=== PATIENT | male | born 1995 | race Caucasian/White ===

== ENCOUNTER 2021-06-02 23:52 | Inpatient (IN) | payer MEDICAID, SELFPAY ==
--- NOTE | ~2021-06-02 | XR_ITS ---
EXAMINATION: XR ELBOW, RIGHT CLINICAL INFORMATION: Question foreign body COMPARISON: None TECHNIQUE: AP, lateral, and oblique views of the right elbow. FINDINGS: No acute fracture or dislocation of the right elbow is identified. No definite elbow effusion is seen however there is some limitation of imaging on lateral view. There is a large amount of subcutaneous edema present throughout the distal upper arm and proximal radius and ulna. No radiopaque foreign body identified. XR/XR elbow RT min 3V IMPRESSION: Large amount of soft tissue edema without definite acute bony abnormality appreciated. No radiopaque foreign body.
--- NOTE | ~2021-06-02 | MR_ITS ---
EXAMINATION: MRI HUMERUS WITHOUT AND WITH CONTRAST, RIGHT CLINICAL INFORMATION: Severe cellulitis right forearm COMPARISON: Right elbow radiographs 06/03/2021 TECHNIQUE: MRI without and with intravenous administration of 10 mL of Gadavist is performed on the right upper arm. FINDINGS: Marked subcutaneous edema throughout the upper arm. Reticular enhancement near the antecubital fossa compatible with cellulitis. Within the subcutaneous fat of the antecubital fossa is a irregularly-shaped fluid collection measuring approximately 3.0 x 2.9 cm. This is contiguous with a collection extending into the anterolateral aspect of the biceps muscle which measures 2.3 x 1.6 x 5.5 cm. Surrounding edema and enhancement of the muscle. MR/MR humerus RT wo/w con IMPRESSION: Cellulitis with subcutaneous abscess in the region of the antecubital fossa of the right elbow, contiguous with an intramuscular abscess of the biceps as detailed in the comments.
--- NOTE | 2021-06-03 00:01 | ED_ITS ---
HPI - Skin/Abscess/Foreign Bdy General Chief complaint: General Medical Stated complaint: r arm insect bite Time Seen by Provider: 06/03/21 00:00 Source: patient and EMS Mode of arrival: EMS Limitations: no limitations History of Present Illness HPI narrative: Patient is a 25 year old male presenting to the emergency department today with right arm pain. Patient states that he shoots up dope and crack, regularly. Patient states that 2 days ago, his right arm got swollen and red. Patient states that it hurts to even move his right arm. Patient denies any dizziness, lightheadedness, abdominal pain, nausea, vomiting, fever, chills, blurry vision, double vision, loss of vision, chest pain, difficulty breathing, shortness of breath, back pain, night sweats, pain with urination, increased urinary frequency, increased urinary urgency, blood in his urine or stool, syncope or a near syncopal episode, recent trauma or falls, bowel incontinence, bladder incontinence, bowel retention, bladder retention, or any other complaints at this time. MD complaint: abscess/boil Onset (ago): day(s) Tetanus up to date: unsure Location: RUE Severity: moderate Severity scale (1-10): 5 Quality: aching and dull Pain Consistency: constant Relieving factors: none Exacerbating factors: none Context: IVDA Associated symptoms: denies other symptoms Treatments prior to arrival: none Related Data Allergies Allergy/AdvReac Type Severity Reaction Status Date / Time naltrexone [NALTREXONE] Allergy Unknown HIVES Unverified 12/26/19 19:36 Review of Systems Constitutional: Constitutional: Reports no additional constitutional complaints, Denies chills, Denies fever(s) and Denies night sweats Eyes: Eyes: Reports no additional eye complaints, Denies blurry vision, Denies change in vision, Denies diplopia, Denies eye discharge, Denies loss of vision and Denies eye pain ENT: Denies dizziness Cardiovascular: Cardiovascular: Reports no additional cardiovascular complaints, Denies chest pain, Denies lightheadedness, Denies Loss of Consciousness and Denies dyspnea Respiratory: Respiratory: Reports no additional respiratory complaints and Denies dyspnea Gastrointestinal: Gastrointestinal: Reports no additional gastrointestinal complaints, Denies abdominal pain, Denies melena, Denies hematochezia, Denies change in bowel habits and Denies change in stool character Genitourinary: Genitourinary: Reports no additional male genitourinary c omplaints, Denies hematuria, Denies oliguria, Denies difficulty urinating, Denies dysuria, Denies urinary frequency, Denies urinary hesitancy, Denies urinary incontinence and Denies urinary urgency Musculoskeletal: Musculoskeletal: Reports no additional musculoskeletal complaints, Denies numbness and Denies tingling Integumentary/Breasts: Skin/Breast: Reports erythema (to right upper arm) and Reports skin swelling (to right upper arm) Neurologic: Denies dizziness, Denies loss of vision, Denies numbness and Denies tingling Psychiatric: Psychiatric: Reports no additional psychiatric complaints Endocrine: Endocrine: Reports no additional endocrine complaints Hematologic/Lymphatic: Hematologic/Lymphatic: Reports no additional hematologic/lymphatic complaints Allergic/Immunologic: Allergic/Immunologic: Reports no additional allergic/immunologic complaints [facility] Past Medical History Attestation statement: The following information was validated with the patient. Source: old records reviewed Physical Exam Vital Signs: Vital Signs: Last Vital Signs Temp 100.0 F 06/03/21 00:06 Pulse 94 06/03/21 00:06 Resp 18 06/03/21 00:06 BP 124/69 06/03/21 00:06 Pulse Ox 96 06/03/21 00:06 BMI result Body Mass Index 32.1 Const: General: cooperative, no acute distress, alert and awake Nutritional Appearance: well nourished Orientation/consciousness: patient oriented x3 Limitations: no limitations HENMT: Head: Yes normal to inspection and Yes atraumatic Ears: hearing grossly normal bilaterally and external ears normal General nose exam: Normal external nose present, no nasal discharge noted and no epistaxis Face and sinus: Yes normal facial exam, No abrasion and No laceration Mouth: Normal oral and palatal mucosa present, no drooling and no muffled voice Eyes: General: appearance normal, both eyes and all related structures Periorbital: periorbital findings normal Eyelids: Yes eyelids normal Conjunctivae: conjunctivae normal Pupils: Equal, round and reactive pupils present EOM: EOMs intact bilaterally Neck: Neck: Yes normal visual inspection, Yes full ROM and Yes no lymphadenopathy Chest: Chest palpation & inspection: normal inspection of the chest Resp: Effort & Inspection: normal respiratory effort and able to speak in complete sentences Auscultation: clear to auscultation bilaterally Cardio: Rate: regular rate Rhythm: regular rhythm GI: Inspection: Yes normal to inspection Skin: Other: extensive erythema, swelling, and warmth to the right upper arm extending upward and downward from the right antecubital region Neuro: General: patient oriented x3 and moves all extremities Cranial nerves: Yes Equal, round and reactive pupils present Cognition (Neuro): normal cognition Motor exam (neuro): 5/5 motor strength present throughout Sensory Exam: Normal double simultaneous stimulation for sensation Coordination: [id number] test normal Extrem: General: Yes normal to inspection, Yes full ROM and Yes capillary refill normal Psych: Appearance: grossly normal Mental Status: mental status grossly normal Affect: normal affect Attitude: cooperative Thought process: Normal thought process present Thought content: Normal thought content present Insight: Good insight present (Psych) MDM - Skin/Abscess/Foreign Bdy MDM Narrative Medical decision making narrative: Patient is a 25 year old male presenting to the emergency department today with right arm cellulitis. Patient's physical exam showed diffuse erythema, warmth, and swelling to the right upper arm. Additionally, patient was febrile at 100 F. Patient was worked up for sepsis and given all appropriate antibiotics and fluids while in the department. Patient's blood work was still pending. Patient's EKG was unremarkable. I explained my physical exam findings as well as all test results to the patient. I answered all questions asked by the patient. Patient received IV Zosyn, Vancomycin, and fluids. I spoke to Dr. Mahmood who agreed to hospital admission. Patient verbalized agreement and understanding with this treatment plan and admission. Differential Diagnosis Differential diagnosis: Likely abscess of skin or subcutaneous tissue and cellulitis Medical Records Attestation: I reviewed the patient's medical records. Lab Data Attestation: I reviewed the patient's lab results. Result diagrams: 06/03/21 00:38 06/03/21 00:38 Labs: Lab Results 06/03/21 06/03/21 Range/Units 00:29 00:38 WBC 10.1 (4.8-10.8) X10*3/uL RBC 4.41 L (4.60-5.80) X10*6/uL Hgb 12.7 L (14.0-18.0) g/dl Hct 37.5 L (42.0-52.0) % MCV 85.0 (80.0-98.0) fL MCH 28.8 (27.0-33.0) pg MCHC 33.9 (31.0-36.0) g/dl RDW 11.9 (11.0-16.0) % Plt Count 209 (160-400) X10*3/uL MPV 9.4 (9.4-12.4) fL Immature Gran % (Auto) 0.2 (0.0-0.4) % Neut % (Auto) 65.4 (45-73) % Lymph % (Auto) 25.7 (20-40) % [place] % (Auto) 8.2 (2-11) % Eos % (Auto) 0.3 (0-4) % Baso % (Auto) 0.2 (0-2) % Lymph # (Auto) 2.6 (1.2-4.9) X10*3/uL [place] # (Auto) 0.8 (0.1-1.2) X10*3/uL Eos # (Auto) 0.0 (0.0-0.4) X10*3/uL Baso # (Auto) 0.0 (0.0-0.2) X10*3/uL Abs Immat Gran (auto) 0.02 (0.00-0.03) X10*3/uL Absolute Neuts (auto) 6.6 (2.0-8.3) x10*3/uL Absolute Nucleated RBC 0.000 (0.0-0.012) X10*3/uL Nucleated RBC % (auto) 0.0 (0.0-0.2) /100WBC COVID-19 (DEREK) Negative (Negative) COVID-19 Clin Com See Note ECG Data Attestation: I personally reviewed and interpreted this ECG as follows: ECG interpretation date: 06/03/21 ECG interpretation time: 00:16 Prior ECG tracings: available for review Interpretation: Vent. Rate: 094 BPM ? ? Atrial Rate: 094 BPM P-R Int: 166 ms? QRS Dur: 110 ms QT Int: 338 ms ? ? ? P-R-T Axes: 043 005 038 degrees QTc Int: 422 ms ? Normal sinus rhythm Possible Left atrial enlargement Incomplete right bundle branch block Borderline ECG When compared with ECG of 06-APR-2018 13:15, QT has shortened Discharge Plan Discharge Clinical Impression: Cellulitis Patient Disposition: Admitted As Inpatient Print Language: Mongolian
[2021-06-03 00:06] VITALS: BP 124/69; PULSE 94; RESP 18; TEMP 37.8; O2SAT 96; BMI 32.1
--- NOTE | 2021-06-03 00:06 | ECG_ITS ---
Test Reason : cellulitis Blood Pressure : / mmHG Vent. Rate : 094 BPM Atrial Rate : 094 BPM P-R Int : 166 ms QRS Dur : 110 ms QT Int : 338 ms P-R-T Axes : 043 005 038 degrees QTc Int : 422 ms Normal sinus rhythm Possible Left atrial enlargement Incomplete right bundle branch block Borderline ECG When compared with ECG of 06-APR-2018 13:15, QT has shortened Referred By: Verito Mathews Electronically Signed By:SWETA CARRERA
[2021-06-03 00:48] LABS: MANUAL DIFF FLAG NO
[2021-06-03] MEDS: Piperacillin Sodium/Tazobactam 4.5 GM in 0.9 % Sodium Chloride 100 ML IV (00:48)
[2021-06-03] MEDS: vancomycin HCL 1,000 MG in 0.9 % Sodium Chloride 250 ML 270 MG IV (00:48)
[2021-06-03 00:49] LABS: Basophils Percent Auto 0.2 % (0-2); Eosinophils Percent Auto 0.3 % (0-4); Hematocrit 37.5 % (42.0-52.0); Hemoglobin 12.7 g/dl (14.0-18.0); Imm Gran Abs Auto 0.02 X10*3/uL (0.00-0.03); Imm Gran Pct Auto 0.2 % (0.0-0.4); Lymphocytes Absolute Auto 2.6 X10*3/uL (1.2-4.9); Lymphocytes Percent Auto 25.7 % (20-40); Mean Corpuscular HGB Conc 33.9 g/dl (31.0-36.0); Mean Corpuscular Hemoglobin 28.8 pg (27.0-33.0); Mean Platelet Volume 9.4 fL (9.4-12.4); Monocytes Absolute Auto 0.8 X10*3/uL (0.1-1.2); Monocytes Percent Auto 8.2 % (2-11); Neutrophils Absolute Auto 6.6 x10*3/uL (2.0-8.3); Neutrophils Percent Auto 65.4 % (45-73); Platelet Count 209 X10*3/uL (160-400); Red Blood Count 4.41 X10*6/uL (4.60-5.80); Red Cell Distribution Width 11.9 % (11.0-16.0); White Blood Count 10.1 X10*3/uL (4.8-10.8)
[2021-06-03] MEDS: Diphth,Pertus(ACell),Tet Adult 0.5 ML SYRINGE IM (00:49)
[2021-06-03 00:51] LABS: COVID-19 Test Negative (Negative)
[2021-06-03 01:02] LABS: Lactic Acid 1.1 mmol/L (0.5-2.0)
[2021-06-03 05:10] VITALS: BP 100/62; PULSE 86; RESP 16; TEMP 37.2; O2SAT 100
[2021-06-03 05:44] LABS: Alanine Aminotransferase 18 U/L (0-40); Albumin Level 3.7 g/dL (3.5-5.0); Alkaline Phosphatase 99 U/L (39-117); Anion Gap 15 (12-20); Aspartate Amino Transferase 14 U/L (5-37); Bilirubin Total 0.8 mg/dL (0.0-1.0); Blood Urea Nitrogen 8 mg/dL (9-16); Carbon Dioxide 26 mmol/L (22-29); Chloride 98 mmol/L (96-108); Creatinine Clr Calc Pharmacy 156.1; Estimated Glomerular Filt Rate > 60; Glucose Random 104 mg/dL (60-115); Potassium 3.4 mmol/L (3.3-5.1); Sodium 136 mmol/L (135-145); Total Protein 6.7 g/dL (6.5-8.0); Troponin-I High Sensitivity < 3.5 ng/L (<3.5-35.0)
[2021-06-03] MEDS: HYDROmorphone HCl 1 MG/ML SYRINGE 0.5 MG IVPUSH ×3 (06:01→23:20)
[2021-06-03] MEDS: Piperacillin Sodium/Tazobactam 3.375 GM in 0.9 % Sodium Chloride 50 ML IV ×3 (06:03→20:48)
[2021-06-03] MEDS: Enoxaparin Sodium 40 MG/0.4 ML SYRINGE SUBCUT (06:05)
--- NOTE | 2021-06-03 06:51 | PM.IMHP ---
History of Present Illness Date of Service: 06/03/21 Chief Complaint: arm pain, swelling 25-year-old male with past medical history of polysubstance abuse that includes heroin, cocaine, as well as alcohol presents to the hospital with complaints of right upper extremity swelling, tenderness, and redness. Patient reports that his symptoms started 2 days prior, have worsened, he has 10/10 pain, radiating down his right arm, he has no numbness or tingling in his fingers, he reports progressively increasing swelling. He also has now noticed swelling and redness in his right hand. Patient denies having any chest pain, no shortness of breath nausea or vomiting, no diarrhea constipation, no urinary symptoms and no lower extremity edema. Patient reports history of injecting heroin as well as cocaine in his hand and in the right arm. He reports that he also picks at his scabs on the right arm constantly. He drinks alcohol daily and neb to a pint and has history of alcohol withdrawal seizures. On arrival to the ED patient hemodynamically stable no significant abnormal vitals Labs reviewed are unremarkable with no WBC elevation Patient will be admitted for further management Review of Systems Review of Systems: Yes all other systems are reviewed and are negative [facility] Medical History (Updated 06/03/21 @ 06:56 by Alexis Mahmood MD) Alcohol abuse Polysubstance abuse Tobacco use disorder Pertinent family history: does not know his family and has no connection to them Surgical History (Updated 06/03/21 @ 06:54 by Alexis Mahmood MD) No pertinent past surgical history Social History (Updated 06/03/21 @ 06:55 by Alexis Mahmood MD) Alcohol intake: current Patient Tobacco Use Status: Current everyday Tobacco user Cigarette Packs Per Day: 0.5 Use of substances other than those prescribed or required for medical reasons: Yes Substance Use Type: Crack/Cocaine, Heroin and IV Drugs Advance Directives: No Meds Allergies Allergy/AdvReac Type Severity Reaction Status Date / Time naltrexone [NALTREXONE] Allergy Unknown HIVES Verified 06/03/21 06:01 Active Medications: Current Medications Acetaminophen (Acetaminophen 325 Mg Tablet) 650 mg PO Q6H PRN PRN Reason: Pain, Mild (Pain Scale 1-3) Docusate Sodium (Docusate Sodium 100 Mg Capsule) 100 mg PO DAILY PRN PRN Reason: Constipation Enoxaparin Sodium (Enoxaparin Sodium 40 Mg/0.4 Ml Syringe) 40 mg SUBCUT Q24H MARLON Last Admin: 06/03/21 06:05 Dose: 40 mg Documented by: Hydromorphone HCl (Hydromorphone Hcl 1 Mg/Ml Syringe) 0.5 mg IVPUSH Q4H PRN; Protocol PRN Reason: Pain, Severe (Pain Scale 7-10) Last Admin: 06/03/21 06:01 Dose: 0.5 mg Documented by: Vancomycin HCl 1,500 mg/ (Sodium Chloride) 500 mls @ 333.333 mls/hr IV Q12H [facility] Last Admin: 06/03/21 05:55 Dose: Not Given Documented by: Piperacillin Sod/Tazobactam (Sod 3.375 gm/ Sodium Chloride) 50 mls @ 100 mls/hr IV Q6H [facility] Last Infusion: 06/03/21 06:34 Dose: Infused Documented by: Medication (No Benzodiazepines) 1 each MISCELLANE DAILY [facility] Ondansetron HCl (Ondansetron Hcl 4 Mg/2 Ml Vial) 4 mg IVPUSH Q8H PRN PRN Reason: Nausea and Vomiting Pharmacy Consult (Consult Rx Perform Med Rec) 1 each MISCELLANE ONCE STA Stop: 06/03/21 05:44 Pharmacy Consult (Consult Rx Vancomycin Dosing) 1 each MISCELLANE DAILY PRN PRN Reason: Consult order Phenobarbital (Phenobarbital 30 Mg Tablet) 60 mg PO BID [facility]; Protocol Stop: 06/05/21 09:01 Phenobarbital (Phenobarbital 30 Mg Tablet) 30 mg PO BID [facility]; Protocol Stop: 06/07/21 09:01 Phenobarbital (Phenobarbital 30 Mg Tablet) 30 mg PO DAILY [facility]; Protocol Stop: 06/09/21 09:01 Phenobarbital Sodium (Phenobarbital Sodium 130 Mg/Ml Vial) 328 mg IM ONCE ONE; Protocol Stop: 06/03/21 07:01 Phenobarbital Sodium (Phenobarbital Sodium 130 Mg/Ml Vial) 246 mg IM Q3H [facility]; Protocol Stop: 06/03/21 13:01 Sodium Chloride (0.9 % Sodium Chloride Flush 3 Ml Syringe) 3 ml IVFLUSH QSHIFT [facility] Physical Exam Vital Signs and Narrative: Vital Signs: Last Vital Signs Temp 99 F 06/03/21 05:10 Pulse 86 06/03/21 05:10 Resp 16 02/24/22 05:10 BP 100/62 06/03/21 05:10 Pulse Ox 100 06/03/21 05:10 BMI result Body Mass Index 32.1 Const: General: cooperative and no acute distress Orientation/consciousness: patient oriented x3 Eyes: General: appearance normal, both eyes and all related structures Pupils: Equal, round and reactive pupils present Resp: Effort & Inspection: normal respiratory effort Auscultation: clear to auscultation bilaterally Cardio: Rate: regular rate Rhythm: regular rhythm GI: Palpation (GI): Soft to palpation Auscultation: normal bowel sounds Skin: Other: erythema, edema, severe tenderness and warmth throughtout right upper extremity starting at the hand - few small ulcers Neuro: General: patient oriented x3 Cranial nerves: Yes Equal, round and reactive pupils present Cognition (Neuro): normal cognition Extrem: Other: right upper extremity edema General: Yes no pedal edema Results Labs CBC and Chem 7: 06/03/21 00:38 06/03/21 00:38 Labs: Laboratory Results - last 24 hr 06/03/21 06/03/21 06/03/21 00:29 00:38 00:38 MCV MCH MCHC RDW Plt Count MPV Immature Gran % (Auto) Neut % (Auto) Lymph % (Auto) [place] % (Auto) Eos % (Auto) Baso % (Auto) Lymph # (Auto) [place] # (Auto) Eos # (Auto) Baso # (Auto) Abs Immat Gran (auto) Absolute Neuts (auto) Absolute Nucleated RBC Nucleated RBC % (auto) Anion Gap 15 Estim Creat Clear Calc 156.1 Estimated GFR > 60 Random Glucose 104 Lactic Acid 1.1 Calcium 9.0 Total Bilirubin 0.8 AST 14 ALT 18 Alkaline Phosphatase 99 Total Protein 6.7 Albumin 3.7 COVID-19 (DEREK) Negative COVID-19 Clin Com See Note 06/03/21 00:38 MCV 85.0 MCH 28.8 MCHC 33.9 RDW 11.9 Plt Count 209 MPV 9.4 Immature Gran % (Auto) 0.2 Neut % (Auto) 65.4 Lymph % (Auto) 25.7 [place] % (Auto) 8.2 Eos % (Auto) 0.3 Baso % (Auto) 0.2 Lymph # (Auto) 2.6 [place] # (Auto) 0.8 Eos # (Auto) 0.0 Baso # (Auto) 0.0 Abs Immat Gran (auto) 0.02 Absolute Neuts (auto) 6.6 Absolute Nucleated RBC 0.000 Nucleated RBC % (auto) 0.0 Anion Gap Estim Creat Clear Calc Estimated GFR Random Glucose Lactic Acid Calcium Total Bilirubin AST ALT Alkaline Phosphatase Total Protein Albumin COVID-19 (DEREK) COVID-19 Clin Com Assessment and Plan (1) Cellulitis: Status: Acute (2) Polysubstance abuse: Status: Acute (3) Tobacco use disorder: Status: Acute (4) Alcohol abuse: Status: Acute Plan 25-year-old male with history polysubstance abuse including cocaine, heroin and alcohol presents to the hospital with complaints of right upper extremity cellulitis # cellulitis of right upper extremity - history of IV drug abuse - IV antibiotic - follow cultures # polysubstance abuse - continue home methadone - consult care team # alcohol abuse - daily drinker, history of alcohol withdrawal seizure - will start him on phenobarb protocol # tobacco use disorder - not interested in nicotine replacement therapy DVT prophylaxis: Lovenox Quality Stroke Does the patient have a stroke diagnosis?: No VTE Prior VTE?: No VTE Risk Level:: Medical - moderate - high VTE Device Contraindication: Treatment Not Indicated VTE Drug Contraindication: N/A - Med Ordered
--- NOTE | 2021-06-03 07:14 | PHA.PROG ---
Admission Date/Time: June 03, 2021 05:46 Indication: Cellulitis, IVDU Weight in k.398 kg Adjusted body weight in K.679kg [place] body weight in K.2 kg Obesity Dosing Indication % IBW: 138% Serum Creatinine - Last 168 Hours 06/03/21 00:38 Creatinine 0.96 Estimated CrCl and GFR - Last 168 Hours 06/03/21 00:38 Estim Creat Clear Calc 156.1 Estimated GFR > 60 Vancomycin Loading Dose: N/A Current Vancomycin Dosing Regimen: 1250 mg Q12H Date and Time for next Vancomycin Level to be drawn: 06/04 @ 0700 Pharmacist Comments on Vancomycin Plan: First dose vancomycin 1000 mg (<10mg/mg) given in the ED 06/03 @ 0044. Not a full loading dose was given, therefore we will start mainteance dose in 8 hours. Maintenance 1250 mg Q12H scheduled to start 06/03 @ 0900. Expected AUC 461 with a trough of 14.6. Trough to be drawn prior to 4th dose Pharmacy to monitor renal function daily Jeannie Monson PharmD Vancomycin dosing will take advantage of [employer] as a clinical decision support tool that uses Bayesian modeling to calculate individual patient's pharmacokinetic parameters and forecast the patient's drug concentration time course with the target goal AUC 24 range of 400 - 600 mg/L/hr.
[2021-06-03] MEDS: PHENobarbitaL sodium 130 MG/ML VIAL 328 MG IM (07:27)
[2021-06-03 08:44] LABS: MANUAL DIFF FLAG NO
[2021-06-03 08:46] LABS: Basophils Percent Auto 0.3 % (0-2); Eosinophils Absolute Auto 0.1 X10*3/uL (0.0-0.4); Eosinophils Percent Auto 0.6 % (0-4); Hematocrit 37.4 % (42.0-52.0); Hemoglobin 12.6 g/dl (14.0-18.0); Imm Gran Abs Auto 0.05 X10*3/uL (0.00-0.03); Imm Gran Pct Auto 0.5 % (0.0-0.4); Lymphocytes Percent Auto 21.4 % (20-40); Mean Corpuscular HGB Conc 33.7 g/dl (31.0-36.0); Mean Corpuscular Hemoglobin 28.7 pg (27.0-33.0); Mean Corpuscular Volume 85.2 fL (80.0-98.0); Monocytes Absolute Auto 0.7 X10*3/uL (0.1-1.2); Monocytes Percent Auto 7.8 % (2-11); Neutrophils Absolute Auto 6.5 x10*3/uL (2.0-8.3); Neutrophils Percent Auto 69.4 % (45-73); Platelet Count 162 X10*3/uL (160-400); Red Blood Count 4.39 X10*6/uL (4.60-5.80); White Blood Count 9.3 X10*3/uL (4.8-10.8)
[2021-06-03 08:57] VITALS: BP 104/64; PULSE 88; RESP 16; TEMP 37.5; O2SAT 95
[2021-06-03 09:02] LABS: Anion Gap 12 (12-20); Blood Urea Nitrogen 7 mg/dL (9-16); Calcium 8.7 mg/dL (8.4-10.2); Carbon Dioxide 24 mmol/L (22-29); Chloride 101 mmol/L (96-108); Creatinine Clr Calc Pharmacy 174.3; Estimated Glomerular Filt Rate > 60; Glucose Random 136 mg/dL (60-115); Potassium 3.3 mmol/L (3.3-5.1); Sodium 134 mmol/L (135-145)
--- NOTE | 2021-06-03 09:05 | PHA.MEDREC ---
Pharmacy Consult ? Medication Reconciliation Pharmacy has completed the medication reconciliation. Patient reports no prescripiton or OTC medications Bri PickettD
[2021-06-03 09:06] LABS: C Reactive Protein 18.62 mg/dL (< or = 0.50)
[2021-06-03] MEDS: vancomycin HCL 1,250 MG in 0.9 % Sodium Chloride 250 ML 166.67 MG IV ×2 (09:07→20:50)
[2021-06-03] MEDS: 0.9 % Sodium Chloride Flush 3 ML SYRINGE IVFLUSH (09:07)
[2021-06-03 09:35] LABS: Erythrocyte Sedimentation Rate 26 MM/HR (0-15)
--- NOTE | 2021-06-03 10:23 | MHC.CM.PN ---
PT REPORTS HE IS HOMELESS BUT HAS BEEN STAYING WITH A FRIEND PT REPORTS HE HAS NO COMMUNITY SERVICES AND USES NO DME PT ADMITS HE HAS NOT SEEN A PCP IN SOME TIME AND HAS NOT TAKEN CARE OF HIS HEALTH SECONDARY TO PSA PT REPORTS HE WAS CONNECTED TO A [facility] CL[facility] IN [place] BUT WAS DISCONNECTED WHEN HE CAME BACK TO THIS AREA WITH HIS GIRLFRIEND. PT IS INTERESTED IN GETTING CONNECTED WITH A NEW [facility] CLINIC PT DOES NOT HAVE A HCP AND REPORTS HE DOES NOT HAVE ANYONE HE COULD NAME PT REPORTS HE CAN RETURN TO HIS FRIENDS HOME AT [place] CURRENT [place] PLAN IS TO FRIENDS HOME, POSSIBLY WITH NEW [facility] SERVICES PT WILL NEED ASSISTANCE WITH TRANSPORTATION AND WILL BE GOING TO [address] [place] [address] IN [place]
[2021-06-03] MEDS: PHENobarbitaL sodium 130 MG/ML VIAL 246 MG IM ×2 (10:39→13:51)
[2021-06-03 12:11] VITALS: BP 122/77; PULSE 82; RESP 18; TEMP 36.7; O2SAT 99
[2021-06-03] MEDS: ondansetron HCL 4 MG/2 ML VIAL IVPUSH (12:21)
--- NOTE | 2021-06-03 12:27 | PC.NURSE ---
Medicated with zofran and dialudid.
[2021-06-03] MEDS: Lactated Ringers 1,000 ML 100 ML IVCONT (12:50)
--- NOTE | 2021-06-03 14:01 | PC.NURSE ---
surgery consult at bedside. per surgeon, given that pt ate breakfast at approx 9am no thoughts to do surgery today - will await MRI results and make decision in the AM. per surgeon, pt ok to eat at this time and change to NPO at midnight.
[2021-06-03 16:38] VITALS: BP 119/77; PULSE 76; RESP 16; TEMP 37.2; O2SAT 98
--- NOTE | 2021-06-03 16:54 | HO.PM.IMPN ---
Subjective Subjective Date of Service: 06/03/21 Interval History: Right upper arm and arm cellulitis as well as left out for arm cellulitis. Review of Systems Patient still has lot of shoulder and forearm pain specially on the right side and range of motion is also somewhat restricted. Denies any fever or chills or nausea vomiting or abdominal pain or weakness or numbness. Physical Exam Vital Signs: Vital Signs: Last Vital Signs Temp 99.0 F 06/03/21 16:38 Pulse 76 06/03/21 16:38 Resp 16 06/03/21 16:38 BP 119/77 06/03/21 16:38 Pulse Ox 98 06/03/21 16:38 BMI result Body Mass Index 32.1 Physical exam: Unchanged from H&P. Objective Data Active Medications Acetaminophen (Acetaminophen 325 Mg Tablet) 650 mg PO Q6H PRN PRN Reason: Pain, Mild (Pain Scale 1-3) Docusate Sodium (Docusate Sodium 100 Mg Capsule) 100 mg PO DAILY PRN PRN Reason: Constipation Enoxaparin Sodium (Enoxaparin Sodium 40 Mg/0.4 Ml Syringe) 40 mg SUBCUT Q24H [facility] Last Admin: 06/03/21 06:05 Dose: 40 mg Documented by: RGEAN Hydromorphone HCl (Hydromorphone Hcl 1 Mg/Ml Syringe) 0.5 mg IVPUSH Q4H PRN; Protocol PRN Reason: Pain, Severe (Pain Scale 7-10) Last Admin: 06/03/21 12:21 Dose: 0.5 mg Documented by: ORTIZ Piperacillin Sod/Tazobactam (Sod 3.375 gm/ Sodium Chloride) 50 mls @ 100 mls/hr IV Q6H [facility] Last Infusion: 06/03/21 12:49 Dose: 0 mls/hr Documented by: LILI Vancomycin HCl 1,250 mg/ (Sodium Chloride) 250 mls @ 166.667 mls/hr IV Q12H [facility] Last Infusion: 06/03/21 11:00 Dose: 0 mls/hr Documented by: LILI Lactated Ringer's (Lr) 1,000 mls @ 100 mls/hr IVCONT .Q10H [facility] Last Admin: 06/03/21 12:50 Dose: 100 mls/hr Documented by: HO.CROSBS Medication (No Benzodiazepines) 1 each MISCELLANE DAILY [facility] Ondansetron HCl (Ondansetron Hcl 4 Mg/2 Ml Vial) 4 mg IVPUSH Q8H PRN PRN Reason: Nausea and Vomiting Last Admin: 06/03/21 12:21 Dose: 4 mg Documented by: ORTIZ Pharmacy Consult (Consult Rx Vancomycin Dosing) 1 each MISCELLANE DAILY PRN PRN Reason: Consult order Phenobarbital (Phenobarbital 30 Mg Tablet) 60 mg PO BID [facility]; Protocol Stop: 06/05/21 09:01 Phenobarbital (Phenobarbital 30 Mg Tablet) 30 mg PO BID [facility]; Protocol Stop: 06/07/21 09:01 Phenobarbital (Phenobarbital 30 Mg Tablet) 30 mg PO DAILY [facility]; Protocol Stop: 06/09/21 09:01 Sodium Chloride (0.9 % Sodium Chloride Flush 3 Ml Syringe) 3 ml IVFLUSH QSHIFT [facility] Last Admin: 06/03/21 16:34 Dose: Not Given Documented by: URMILA Non-Admin Reason: IV Running Labs CBC & Chem 7: 06/03/21 08:40 06/03/21 08:40 Labs: Laboratory Results - last 24 hr 06/03/21 06/03/21 06/03/21 00:29 00:38 00:38 MCV MCH MCHC RDW Plt Count MPV Immature Gran % (Auto) Neut % (Auto) Lymph % (Auto) [place] % (Auto) Eos % (Auto) Baso % (Auto) Lymph # (Auto) [place] # (Auto) Eos # (Auto) Baso # (Auto) Abs Immat Gran (auto) Absolute Neuts (auto) Absolute Nucleated RBC Nucleated RBC % (auto) ESR Anion Gap 15 Estim Creat Clear Calc 156.1 Estimated GFR > 60 Random Glucose 104 Lactic Acid 1.1 Calcium 9.0 Total Bilirubin 0.8 AST 14 ALT 18 Alkaline Phosphatase 99 C-Reactive Protein 18.62 H Total Protein 6.7 Albumin 3.7 COVID-19 (DEREK) Negative COVID-19 Clin Com See Note 06/03/21 06/03/21 06/03/21 00:38 00:38 08:40 MCV 85.0 85.2 MCH 28.8 28.7 MCHC 33.9 33.7 RDW 11.9 12.0 Plt Count 209 162 MPV 9.4 10.0 Immature Gran % (Auto) 0.2 0.5 H Neut % (Auto) 65.4 69.4 Lymph % (Auto) 25.7 21.4 [place] % (Auto) 8.2 7.8 Eos % (Auto) 0.3 0.6 Baso % (Auto) 0.2 0.3 Lymph # (Auto) 2.6 2.0 [place] # (Auto) 0.8 0.7 Eos # (Auto) 0.0 0.1 Baso # (Auto) 0.0 0.0 Abs Immat Gran (auto) 0.02 0.05 H Absolute Neuts (auto) 6.6 6.5 Absolute Nucleated RBC 0.000 0.000 Nucleated RBC % (auto) 0.0 0.0 ESR 26 H Anion Gap Estim Creat Clear Calc Estimated GFR Random Glucose Lactic Acid Calcium Total Bilirubin AST ALT Alkaline Phosphatase C-Reactive Protein Total Protein Albumin COVID-19 (DEREK) COVID-19 Clin Com 06/03/21 08:40 MCV MCH MCHC RDW Plt Count MPV Immature Gran % (Auto) Neut % (Auto) Lymph % (Auto) [place] % (Auto) Eos % (Auto) Baso % (Auto) Lymph # (Auto) [place] # (Auto) Eos # (Auto) Baso # (Auto) Abs Immat Gran (auto) Absolute Neuts (auto) Absolute Nucleated RBC Nucleated RBC % (auto) ESR Anion Gap 12 Estim Creat Clear Calc 174.3 Estimated GFR > 60 Random Glucose 136 H Lactic Acid Calcium 8.7 Total Bilirubin AST ALT Alkaline Phosphatase C-Reactive Protein Total Protein Albumin COVID-19 (DEREK) COVID-19 Clin Com Assessment and Plan (1) Cellulitis: Status: Acute Plan 25-year-old male with history polysubstance abuse including cocaine, heroin and alcohol presents to the hospital with complaints of right upper extremity cellulitis 1.cellulitis of right upper extremity -? history of IV drug abuse -? IV antibiotic, vanco trough -? follow? cultures Discussed with surgery: Added upper arm MRI, npo past midight- if does not improve, may need surgery intervention . 2.? polysubstance abuse -? continue home methadone -? consult care team 3. ? alcohol abuse -? daily drinker, history of alcohol withdrawal seizure continue on phenobarb protocol 4. tobacco use disorder -? not interested in nicotine replacement therapy ?DVT prophylaxis: [place] Quality Stroke Does the patient have a stroke diagnosis?: No VTE Prior VTE?: No VTE Risk Level:: Medical - moderate - high VTE Device Contraindication: Treatment Not Indicated VTE Drug Contraindication: N/A - Med Ordered
--- NOTE | 2021-06-03 19:24 | P.CONOP_ITS ---
History of Present Illness HPI Consult date: 06/03/21 Chief complaint: Cellulitis Narrative: This is a 25 yo male who presented to the ED with worsening pain , swelling and redness in the right arm. He states he injected heroin into the right hand 2 days ago. He denies injecting into the atecubital fossa or bicep region. Denies this happening before. Upon presentation to the ED, he was admitted to the medical service for IV abx and further evaluation. Orthopedics was consulted for concerns of arm abscess vs cellulitis. Review of Systems Review of Systems: As per [facility] Past Medical History Medical History (Updated 06/03/21 @ 06:56 by Alexis Mahmood MD) Alcohol abuse Polysubstance abuse Tobacco use disorder Surgical History Surgical History (Updated 06/03/21 @ 06:54 by Alexis Mahmood MD) No pertinent past surgical history Social History Social History (Updated 06/03/21 @ 06:55 by Alexis Mahmood MD) Alcohol intake: current Patient Tobacco Use Status: Current everyday Tobacco user Cigarette Packs Per Day: 0.5 Use of substances other than those prescribed or required for medical reasons: Yes Substance Use Type: Crack/Cocaine, Heroin and IV Drugs Advance Directives: No service: No Current occupational status: unemployed Meds Allergies Allergy/AdvReac Type Severity Reaction Status Date / Time naltrexone [NALTREXONE] Allergy Unknown HIVES Verified 06/03/21 06:01 Active Medications: Current Medications Acetaminophen (Acetaminophen 325 Mg Tablet) 650 mg PO Q6H PRN PRN Reason: Pain, Mild (Pain Scale 1-3) Docusate Sodium (Docusate Sodium 100 Mg Capsule) 100 mg PO DAILY PRN PRN Reason: Constipation Enoxaparin Sodium (Enoxaparin Sodium 40 Mg/0.4 Ml Syringe) 40 mg SUBCUT Q24H [facility] Last Admin: 06/03/21 06:05 Dose: 40 mg Documented by: Hydromorphone HCl (Hydromorphone Hcl 1 Mg/Ml Syringe) 0.5 mg IVPUSH Q4H PRN; Protocol PRN Reason: Pain, Severe (Pain Scale 7-10) Last Admin: 06/03/21 12:21 Dose: 0.5 mg Documented by: Piperacillin Sod/Tazobactam (Sod 3.375 gm/ Sodium Chloride) 50 mls @ 100 mls/hr IV Q6H [facility] Last Infusion: 06/03/21 12:49 Dose: Infused Documented by: Vancomycin HCl 1,250 mg/ (Sodium Chloride) 250 mls @ 166.667 mls/hr IV Q12H [facility] Last Infusion: 06/03/21 11:00 Dose: Infused Documented by: Lactated Ringer's (Lr) 1,000 mls @ 100 mls/hr IVCONT .Q10H [facility] Last Admin: 06/03/21 12:50 Dose: 100 mls/hr Documented by: Medication (No Benzodiazepines) 1 each MISCELLANE DAILY [facility] Ondansetron HCl (Ondansetron Hcl 4 Mg/2 Ml Vial) 4 mg IVPUSH Q8H PRN PRN Reason: Nausea and Vomiting Last Admin: 06/03/21 12:21 Dose: 4 mg Documented by: Pharmacy Consult (Consult Rx Vancomycin Dosing) 1 each MISCELLANE DAILY PRN PRN Reason: Consult order Pharmacy Consult (Consult Rx Vancomycin Dosing) 1 each MISCELLANE DAILY PRN PRN Reason: Consult order Phenobarbital (Phenobarbital 30 Mg Tablet) 60 mg PO BID [facility]; Protocol Stop: 06/05/21 09:01 Phenobarbital (Phenobarbital 30 Mg Tablet) 30 mg PO BID [facility]; Protocol Stop: 06/07/21 09:01 Phenobarbital (Phenobarbital 30 Mg Tablet) 30 mg PO DAILY [facility]; Protocol Stop: 06/09/21 09:01 Sodium Chloride (0.9 % Sodium Chloride Flush 3 Ml Syringe) 3 ml IVFLUSH QSHIFT [facility] Last Admin: 06/03/21 16:34 Dose: Not Given Documented by: Home Medications Medication Instructions Recorded Confirmed Last Taken Type No Known Home Meds 06/03/21 06/03/21 Unknown History Physical Exam Vital Signs: Vital Signs: Last Vital Signs Temp 99.0 F 06/03/21 16:38 Pulse 76 06/03/21 16:38 Resp 16 06/03/21 16:38 BP 119/77 06/03/21 16:38 Pulse Ox 98 06/03/21 16:38 BMI result Body Mass Index 32.1 Const: General: cooperative, healthy appearing, comfortable and no acute distress Extrem: Other: Right arm compartments are soft. Mild tenderness over the bicep and antecubital fossa . No significant tenderness in the right forearm. He is able to move the wrist and initiate active motion of the fingers. Pain with attempted elbow rom. No significant palpable abscess. Results Labs Result Diagrams: 06/03/21 08:40 06/03/21 08:40 Labs: Abnormal lab results 06/03/21 06/03/21 06/03/21 Range/Units 00:38 00:38 00:38 RBC 4.41 L (4.60-5.80) X10*6/uL Hgb 12.7 L (14.0-18.0) g/dl Hct 37.5 L (42.0-52.0) % Immature Gran % (Auto) (0.0-0.4) % Abs Immat Gran (auto) (0.00-0.03) X10*3/uL ESR 26 H (0-15) MM/HR Sodium (135-145) mmol/L BUN 8 L (9-16) mg/dL Random Glucose (60-115) mg/dL C-Reactive Protein 18.62 H (< or = 0.50) mg/dL 06/03/21 06/03/21 Range/Units 08:40 08:40 RBC 4.39 L (4.60-5.80) X10*6/uL Hgb 12.6 L (14.0-18.0) g/dl Hct 37.4 L (42.0-52.0) % Immature Gran % (Auto) 0.5 H (0.0-0.4) % Abs Immat Gran (auto) 0.05 H (0.00-0.03) X10*3/uL ESR (0-15) MM/HR Sodium 134 L (135-145) mmol/L BUN 7 L (9-16) mg/dL Random Glucose 136 H (60-115) mg/dL C-Reactive Protein (< or = 0.50) mg/dL H & H 06/03/21 06/03/21 Range/Units 00:38 08:40 Hgb 12.7 L 12.6 L (14.0-18.0) g/dl Hct 37.5 L 37.4 L (42.0-52.0) % All other labs normal. Diagnostic results Elbow x-ray: image reviewed (negative for foreign bodies) Assessment and Plan (1) Cellulitis: Status: Acute Plan Discussed the case with Dr Johnston who was also available to see the patient. In the absence of obvious abscess or purulant/fluctulant area, this is more likely cellulitis from IVDU. Continue with IV abx and keep NPO after midnight incase symptoms worsen overnight and he needs to be taken to the OR for I&D. Will examine in the morning for further recommendations. Procedures Date of Service Date of Service: 06/03/21
[2021-06-03] MEDS: PHENobarbitaL 30 MG TABLET 60 MG PO (20:49)
[2021-06-04] VITALS (20 sets, daily range): BP systolic 115–145; BP diastolic 58–102; PULSE 72–104; RESP 16–28; TEMP 36.1–37.7; O2SAT 95–100
[2021-06-04] MEDS: Lactated Ringers 1,000 ML 100 ML IVCONT ×3 (00:53→18:14)
[2021-06-04] MEDS: Piperacillin Sodium/Tazobactam 3.375 GM in 0.9 % Sodium Chloride 50 ML IV ×4 (02:30→21:17)
[2021-06-04] MEDS: HYDROmorphone HCl 1 MG/ML SYRINGE 0.5 MG IVPUSH ×4 (04:16→21:17)
[2021-06-04] MEDS: ondansetron HCL 4 MG/2 ML VIAL IVPUSH (07:34)
--- NOTE | 2021-06-04 07:34 | PC.NURSE ---
Pt received from night court magistrate: Pt AOX4 and c/o moderate pain to R arm. Known cellulitis ti R arm- redness, swelling and warmth to touch. Heart sounds normal and lungs clear. Pt abd round and non-tender. Pt also N/V this morning. PRN zofran given. Pt NPO and pending OR for I&D today.
[2021-06-04 07:51] LABS: Hematocrit 36.8 % (42.0-52.0); Hemoglobin 12.7 g/dl (14.0-18.0); Mean Corpuscular HGB Conc 34.5 g/dl (31.0-36.0); Mean Corpuscular Hemoglobin 28.9 pg (27.0-33.0); Mean Corpuscular Volume 83.8 fL (80.0-98.0); Mean Platelet Volume 9.6 fL (9.4-12.4); Platelet Count 214 X10*3/uL (160-400); Red Blood Count 4.39 X10*6/uL (4.60-5.80); Red Cell Distribution Width 11.9 % (11.0-16.0); White Blood Count 8.8 X10*3/uL (4.8-10.8)
[2021-06-04 08:04] LABS: Anion Gap 14 (12-20); Blood Urea Nitrogen 5 mg/dL (9-16); Carbon Dioxide 27 mmol/L (22-29); Chloride 103 mmol/L (96-108); Creatinine Clr Calc Pharmacy 138.8; Creatinine Clr Calc Pharmacy 145.5; Estimated Glomerular Filt Rate > 60; Glucose Random 102 mg/dL (60-115); Potassium 3.9 mmol/L (3.3-5.1); Sodium 140 mmol/L (135-145)
[2021-06-04] MEDS: PHENobarbitaL 30 MG TABLET 60 MG PO ×2 (08:21→21:16)
[2021-06-04 08:25] LABS: Vancomycin Trough 9.5 mcg/mL (10.0-20.0)
--- NOTE | 2021-06-04 08:37 | PHA.PROG ---
Admission Date/Time: June 03, 2021 05:46 Indication: Cellulitis, IVDU Weight in k.398 kg Adjusted body weight in K.679kg [place] body weight in K.2 kg Obesity Dosing Indication % IBW: 138% Serum Creatinine - Last 168 Hours 06/03/21 06/03/21 06/04/21 00:38 08:40 07:18 Creatinine 0.96 0.86 1.03 06/04/21 07:18 Creatinine 1.08 Estimated CrCl and GFR - Last 168 Hours 06/03/21 06/03/21 06/04/21 00:38 08:40 07:18 Estim Creat Clear Calc 156.1 174.3 145.5 Estimated GFR > 60 > 60 > 60 06/04/21 07:18 Estim Creat Clear Calc 138.8 Estimated GFR > 60 Vancomycin Loading Dose: N/A Current Vancomycin Dosing Regimen: 1250 mg Q12H Vancomycin Trough 9.5 mcg/mL (10.0-20.0) L 06/04/21 07:18 Pharmacist Comments on Vancomycin Plan: Trough is slightly subtheraputic today at 9.5. This could be due to patient no recieve a full loading dose for his weight. Patient's first dose was only 1000 mg (<10 mg/kg) Patient's SCr is trending upwards. Even though trough is very slightly low, due do circumstance of first dose and SCr trending up will continue same regimen. AUC is 412 with a trough of 12.7 Trough 06/05 @ 1900 Will revaluated vanco dose after level tomorrow Pharmacy will continue to monitor renal function. Jeannie Monson PharmD Vancomycin dosing will take advantage of [employer] as a clinical decision support tool that uses Bayesian modeling to calculate individual patient's pharmacokinetic parameters and forecast the patient's drug concentration time course with the target goal AUC 24 range of 400 - 600 mg/L/hr.
--- NOTE | 2021-06-04 08:55 | P.PNIM_ITS ---
Subjective Subjective Date of Service: 06/04/21 Interval History: cellulitis Review of Systems Right upper arm and? arm cellulitis as well as left out for arm cellulitis. Physical Exam Vital Signs: Vital Signs: Last Vital Signs Temp 97 F 06/04/21 07:40 Pulse 91 06/04/21 07:40 Resp 16 06/04/21 07:40 BP 123/76 06/04/21 07:40 Pulse Ox 98 06/04/21 07:40 BMI result Body Mass Index 32.1 Appearance: Alert.? Oriented X3.? not in distress.? Eyes: Pupils equal, round and reactive to light.? Sclera nonicteric.? ENT: Pharynx normal.? Moist mucous membranes. cvs: rrr, [id number] , no murmur res: clear to auscultation ,no rhonchii or wheezing abd: no rebound or guarding ,nt, bs present. ext pulses present , no cyanosis ,erythema, edema, severe tenderness and warmth throughtout right upper extremity starting at the hand - few small ulcers. neuro: axo3 , nonfocal. Objective Data Active Medications Acetaminophen (Acetaminophen 325 Mg Tablet) 650 mg PO Q6H PRN PRN Reason: Pain, Mild (Pain Scale 1-3) Docusate Sodium (Docusate Sodium 100 Mg Capsule) 100 mg PO DAILY PRN PRN Reason: Constipation Enoxaparin Sodium (Enoxaparin Sodium 40 Mg/0.4 Ml Syringe) 40 mg SUBCUT Q24H [facility] Last Admin: 06/03/21 06:05 Dose: 40 mg Documented by: REGAN Hydromorphone HCl (Hydromorphone Hcl 1 Mg/Ml Syringe) 0.5 mg IVPUSH Q4H PRN; Protocol PRN Reason: Pain, Severe (Pain Scale 7-10) Last Admin: 06/04/21 08:21 Dose: 0.5 mg Documented by: TOM-ERIKA Vancomycin HCl 1,250 mg/ (Sodium Chloride) 250 mls @ 166.667 mls/hr IV Q12H [facility] Last Infusion: 06/03/21 22:13 Dose: 0 mls/hr Documented by: URMILA Lactated Ringer's (Lr) 1,000 mls @ 100 mls/hr IVCONT .Q10H [facility] Last Infusion: 06/04/21 08:31 Dose: 0 mls/hr Documented by: ELIZABETH Piperacillin Sod/Tazobactam (Sod 3.375 gm/ Sodium Chloride) 50 mls @ 100 mls/hr IV Q6H [facility] Last Admin: 06/04/21 08:31 Dose: 100 mls/hr Documented by: ELIZABETH Medication (No Benzodiazepines) 1 each MISCELLANE DAILY [facility] Ondansetron HCl (Ondansetron Hcl 4 Mg/2 Ml Vial) 4 mg IVPUSH Q8H PRN PRN Reason: Nausea and Vomiting Last Admin: 06/04/21 07:34 Dose: 4 mg Documented by: ELIZABETH Pharmacy Consult (Consult Rx Vancomycin Dosing) 1 each MISCELLANE DAILY PRN PRN Reason: Consult order Pharmacy Consult (Consult Rx Vancomycin Dosing) 1 each MISCELLANE DAILY PRN PRN Reason: Consult order Phenobarbital (Phenobarbital 30 Mg Tablet) 60 mg PO BID [facility]; Protocol Stop: 06/05/21 09:01 Last Admin: 06/04/21 08:21 Dose: 60 mg Documented by: ELIZABETH Phenobarbital (Phenobarbital 30 Mg Tablet) 30 mg PO BID [facility]; Protocol Stop: 06/07/21 09:01 Phenobarbital (Phenobarbital 30 Mg Tablet) 30 mg PO DAILY [facility]; Protocol Stop: 06/09/21 09:01 Sodium Chloride (0.9 % Sodium Chloride Flush 3 Ml Syringe) 3 ml IVFLUSH QSHIFT [facility] Last Admin: 06/04/21 07:24 Dose: Not Given Documented by: ELIZABETH Non-Admin Reason: Med Not Available Labs CBC & Chem 7: 06/04/21 07:18 06/04/21 07:18 Labs: Laboratory Results - last 24 hr 06/03/21 06/03/21 06/03/21 00:38 00:38 08:40 MCV MCH MCHC RDW Plt Count MPV Absolute Nucleated RBC Nucleated RBC % (auto) ESR 26 H Anion Gap 12 Estim Creat Clear Calc 174.3 Estimated GFR > 60 Random Glucose 136 H Calcium 8.7 C-Reactive Protein 18.62 H Vancomycin Trough 06/04/21 06/04/21 06/04/21 07:18 07:18 07:18 MCV 83.8 MCH 28.9 MCHC 34.5 RDW 11.9 Plt Count 214 D MPV 9.6 Absolute Nucleated RBC 0.000 Nucleated RBC % (auto) 0.0 ESR Anion Gap Estim Creat Clear Calc 145.5 Estimated GFR > 60 Random Glucose Calcium C-Reactive Protein Vancomycin Trough 9.5 L 06/04/21 07:18 MCV MCH MCHC RDW Plt Count MPV Absolute Nucleated RBC Nucleated RBC % (auto) ESR Anion Gap 14 Estim Creat Clear Calc 138.8 Estimated GFR > 60 Random Glucose 102 Calcium 9.0 C-Reactive Protein Vancomycin Trough Microbiology Microbiology Results: Microbiology 06/03/21 00:39 Blood Culture - Preliminary Blood - Venous No growth after 24 hours. 06/03/21 00:38 Blood Culture - Preliminary Blood - Venous No growth after 24 hours. Assessment and Plan (1) Cellulitis: Status: Acute Plan 25-year-old male with history polysubstance abuse including cocaine, heroin and alcohol presents to the hospital with complaints of right upper extremity cellulitis 1.cellulitis of right upper extremity -? history of IV drug abuse continue IV antibiotic, vanco trough9.5 MRI-Cellulitis with subcutaneous abscess in the region of the antecubital fossa of the right elbow, contiguous with an intramuscular abscess of the biceps as detailed in the comments -? follow? cultures Discussed with surgery: upper arm MRI-shows upper arm abcess , going to OR as per ortho . 2.? polysubstance abuse ua -positive for multiple substances including cocaine -? continue home methadone -? consult care team 3. ? alcohol abuse -? daily drinker, history of alcohol withdrawal seizure continue on phenobarb protocol 4. tobacco use disorder -? not interested in nicotine replacement therapy ?DVT prophylaxis: [place] Stroke Does the patient have a stroke diagnosis?: No VTE Prior VTE?: No VTE Risk Level:: Medical - moderate - high VTE Device Contraindication: Treatment Not Indicated VTE Drug Contraindication: N/A - Med Ordered
[2021-06-04] MEDS: vancomycin HCL 1,250 MG in 0.9 % Sodium Chloride 250 ML 166.67 MG IV (09:12)
--- NOTE | 2021-06-04 10:16 | PM.EVENT ---
Event Note Date of Service: 06/04/21 Event Note: Patient was seen at bedside this morning he continued to have some pain and swelling in the antecubital fossa into the biceps region. He states that he did have slightly more movement but with palpation it was significantly tender. MRI: Cellulitis with subcutaneous abscess in the region of the antecubital fossa of the right elbow, contiguous with an intramuscular abscess of the biceps as detailed in the comments. MRI results were relayed to Dr. Johnston who is going to contact the operating room to plan for an I&D of the right arm abscess.
--- NOTE | 2021-06-04 10:25 | MHC.RECOVSUP ---
Recovery Support note: Patient is a 25 year old Spanish speaking male who presented to [facility] ED due to an arm infection. This telegraphic typewriter mechanic met with patient to discuss substance use and treatment options. Patient reports using up to ten bundles of heroin a day, IV and 4 grams of cocaine. In addition, patient reports alcohol consumption however states it varies depending on the day but averages several nips. Patient reports he was last on methadone a month ago while in a detox program. Patient reports he has been on methadone maintenance through [facility] in [place] and that he was planning to return there. Patient does not have an ID at this time however reports the OTP has it on file and that he can return. This telegraphic typewriter mechanic attempted to verify with clinic however I was unable to speak with anyone at the clinic. Patient does have a scanned photo ID in the [employer] that in 2020. Discussed case with Recovery Team. Plan for Vicenta VALLE and Haylie GARCIA to check in with patient today to discuss methadone initiation further.
[2021-06-04 11:59] LABS: Amphetamine Screen Urine Not Detected (Not Detect); Barbiturates, Urine POSITIVE (Not Detect); Benzodiazepines Screen Urine Not Detected (Not Detect); Cannabinoid Screen Urine Not Detected (Not Detect); Cocaine Screen Urine POSITIVE (Not Detect); Fentanyl, urine POSITIVE (Not Detect); Opiate Screen Urine POSITIVE (Not Detect); Phencyclidine Screen Urine Not Detected (Not Detect)
--- NOTE | 2021-06-04 12:13 | MHC.CM.PN ---
Patient remains in hospital. Per Dr Vora, anticipate patient will remain in hospital for 1-2 days. Patient will discharge to a friend's house when medically stable. Patient interested in meeting with recovery team to arrange MAT. Continue to monitor for d/c needs.
--- NOTE | 2021-06-04 12:59 | PC.NURSE ---
Pt to [facility] with tech and wheelchair at this time.
--- NOTE | 2021-06-04 13:14 | HO.ANESPROP2 ---
[facility] Active Problems Active Problems: All Active Problems (Updated 06/03/21 @ 06:56 by Alexis Mahmood MD) Tobacco use disorder (Acute) Alcohol abuse (Acute) Polysubstance abuse (Acute) Cellulitis (Acute) Past Medical History Medical History (Updated 06/03/21 @ 06:56 by Alexis Mahmood MD) Alcohol abuse Polysubstance abuse Tobacco use disorder Family History Family history of problems with anesthesia: No Surgical History Surgical History (Updated 06/03/21 @ 06:54 by Alexis Mahmood MD) No pertinent past surgical history History of Problems with Anesthesia: No Social History Social History (Updated 06/03/21 @ 06:55 by Alexis Mahmood MD) Alcohol intake: current Alcohol intake frequency: 3 or more drinks per day Patient Tobacco Use Status: Current everyday Tobacco user Tobacco use type: Cigarette Cigarette Packs Per Day: 0.5 Cigarettes Per Day: 10 Use of substances other than those prescribed or required for medical reasons: Yes Substance Use Type: Crack/Cocaine, Heroin and IV Drugs Substance Use Frequency: Daily Are you DNR?: No Advance Directives: No Nutrition Risks: No Nutritional Risk service: No Current occupational status: unemployed Meds Allergies Allergy/AdvReac Type Severity Reaction Status Date / Time naltrexone [NALTREXONE] Allergy Unknown HIVES Verified 06/04/21 13:23 Active Medications: Current Medications Acetaminophen (Acetaminophen 325 Mg Tablet) 650 mg PO Q6H PRN PRN Reason: Pain, Mild (Pain Scale 1-3) Docusate Sodium (Docusate Sodium 100 Mg Capsule) 100 mg PO DAILY PRN PRN Reason: Constipation Enoxaparin Sodium (Enoxaparin Sodium 40 Mg/0.4 Ml Syringe) 40 mg SUBCUT Q24H [facility] Last Admin: 06/03/21 06:05 Dose: 40 mg Documented by: Hydromorphone HCl (Hydromorphone Hcl 1 Mg/Ml Syringe) 0.5 mg IVPUSH Q4H PRN; Protocol PRN Reason: Pain, Severe (Pain Scale 7-10) Last Admin: 06/04/21 12:36 Dose: 0.5 mg Documented by: Vancomycin HCl 1,250 mg/ (Sodium Chloride) 250 mls @ 166.667 mls/hr IV Q12H [facility] Last Infusion: 06/04/21 10:45 Dose: Infused Documented by: Lactated Ringer's (Lr) 1,000 mls @ 100 mls/hr IVCONT .Q10H [facility] Last Admin: 06/04/21 11:20 Dose: 100 mls/hr Documented by: Piperacillin Sod/Tazobactam (Sod 3.375 gm/ Sodium Chloride) 50 mls @ 100 mls/hr IV Q6H [facility] Last Infusion: 06/04/21 09:03 Dose: Infused Documented by: Medication (No Benzodiazepines) 1 each MISCELLANE DAILY [facility] Ondansetron HCl (Ondansetron Hcl 4 Mg/2 Ml Vial) 4 mg IVPUSH Q8H PRN PRN Reason: Nausea and Vomiting Last Admin: 06/04/21 07:34 Dose: 4 mg Documented by: Pharmacy Consult (Consult Rx Vancomycin Dosing) 1 each MISCELLANE DAILY PRN PRN Reason: Consult order Pharmacy Consult (Consult Rx Vancomycin Dosing) 1 each MISCELLANE DAILY PRN PRN Reason: Consult order Phenobarbital (Phenobarbital 30 Mg Tablet) 60 mg PO BID [facility]; Protocol Stop: 06/05/21 09:01 Last Admin: 06/04/21 08:21 Dose: 60 mg Documented by: Phenobarbital (Phenobarbital 30 Mg Tablet) 30 mg PO BID [facility]; Protocol Stop: 06/07/21 09:01 Phenobarbital (Phenobarbital 30 Mg Tablet) 30 mg PO DAILY [facility]; Protocol Stop: 06/09/21 09:01 Sodium Chloride (0.9 % Sodium Chloride Flush 3 Ml Syringe) 3 ml IVFLUSH QSHIFT [facility] Last Admin: 06/04/21 07:24 Dose: Not Given Documented by: Home Medications Medication Instructions Recorded Confirmed Last Taken Type No Known Home Meds 06/03/21 06/03/21 Unknown History Exam Exam Date and Time: June 04, 2021 1314 Height,Weight and Vital Signs: Height 6 ft 2 in Weight 113.398 kg Last Vital Signs Temp 96.9 F 06/04/21 13:08 Pulse 89 06/04/21 13:08 Resp 16 06/04/21 13:08 BP 133/85 06/04/21 13:08 Pulse Ox 100 06/04/21 13:08 Pertinent Lab Results Pertinent Lab Results: Laboratory Tests 06/03/21 06/03/21 06/03/21 00:29 00:38 00:38 WBC RBC Hgb Hct MCV MCH MCHC RDW Plt Count MPV Immature Gran % (Auto) Neut % (Auto) Lymph % (Auto) Orange % (Auto) Eos % (Auto) Baso % (Auto) Lymph # (Auto) Orange # (Auto) Eos # (Auto) Baso # (Auto) Abs Immat Gran (auto) Absolute Neuts (auto) Absolute Nucleated RBC Nucleated RBC % (auto) ESR Sodium 136 Potassium 3.4 Chloride 98 Carbon Dioxide 26 Anion Gap 15 BUN 8 L Creatinine 0.96 Estim Creat Clear Calc 156.1 Estimated GFR > 60 Random Glucose 104 Lactic Acid 1.1 Calcium 9.0 Total Bilirubin 0.8 AST 14 ALT 18 Alkaline Phosphatase 99 Troponin I High Sens C-Reactive Protein 18.62 H Total Protein 6.7 Albumin 3.7 Vancomycin Trough Urine Opiates Screen Urine Fentanyl Screen Ur Barbiturates Screen Ur Phencyclidine Scrn Ur Amphetamines Screen U Benzodiazepines Scrn Urine Cocaine Screen U Marijuana (THC) Screen COVID-19 ([facility]) Negative COVID-19 Clin Com See Note 06/03/21 06/03/21 06/03/21 00:38 00:38 00:38 WBC 10.1 RBC 4.41 L Hgb 12.7 L Hct 37.5 L MCV 85.0 MCH 28.8 MCHC 33.9 RDW 11.9 Plt Count 209 MPV 9.4 Immature Gran % (Auto) 0.2 Neut % (Auto) 65.4 Lymph % (Auto) 25.7 Orange % (Auto) 8.2 Eos % (Auto) 0.3 Baso % (Auto) 0.2 Lymph # (Auto) 2.6 Orange # (Auto) 0.8 Eos # (Auto) 0.0 Baso # (Auto) 0.0 Abs Immat Gran (auto) 0.02 Absolute Neuts (auto) 6.6 Absolute Nucleated RBC 0.000 Nucleated RBC % (auto) 0.0 ESR 26 H Sodium Potassium Chloride Carbon Dioxide Anion Gap BUN Creatinine Estim Creat Clear Calc Estimated GFR Random Glucose Lactic Acid Calcium Total Bilirubin AST ALT Alkaline Phosphatase Troponin I High Sens < 3.5 C-Reactive Protein Total Protein Albumin Vancomycin Trough Urine Opiates Screen Urine Fentanyl Screen Ur Barbiturates Screen Ur Phencyclidine Scrn Ur Amphetamines Screen U Benzodiazepines Scrn Urine Cocaine Screen U Marijuana (THC) Screen COVID-19 ([facility]) COVID-19 Clin Com 06/03/21 06/03/21 06/04/21 08:40 08:40 07:18 WBC 9.3 RBC 4.39 L Hgb 12.6 L Hct 37.4 L MCV 85.2 MCH 28.7 MCHC 33.7 RDW 12.0 Plt Count 162 MPV 10.0 Immature Gran % (Auto) 0.5 H Neut % (Auto) 69.4 Lymph % (Auto) 21.4 Orange % (Auto) 7.8 Eos % (Auto) 0.6 Baso % (Auto) 0.3 Lymph # (Auto) 2.0 Orange # (Auto) 0.7 Eos # (Auto) 0.1 Baso # (Auto) 0.0 Abs Immat Gran (auto) 0.05 H Absolute Neuts (auto) 6.5 Absolute Nucleated RBC 0.000 Nucleated RBC % (auto) 0.0 ESR Sodium 134 L Potassium 3.3 Chloride 101 Carbon Dioxide 24 Anion Gap 12 BUN 7 L Creatinine 0.86 1.03 Estim Creat Clear Calc 174.3 145.5 Estimated GFR > 60 > 60 Random Glucose 136 H Lactic Acid Calcium 8.7 Total Bilirubin AST ALT Alkaline Phosphatase Troponin I High Sens C-Reactive Protein Total Protein Albumin Vancomycin Trough Urine Opiates Screen Urine Fentanyl Screen Ur Barbiturates Screen Ur Phencyclidine Scrn Ur Amphetamines Screen U Benzodiazepines Scrn Urine Cocaine Screen U Marijuana (THC) Screen COVID-19 ([facility]) COVID-19 Clin Com 06/04/21 06/04/21 06/04/21 07:18 07:18 07:18 WBC 8.8 RBC 4.39 L Hgb 12.7 L Hct 36.8 L MCV 83.8 MCH 28.9 MCHC 34.5 RDW 11.9 Plt Count 214 D MPV 9.6 Immature Gran % (Auto) Neut % (Auto) Lymph % (Auto) Orange % (Auto) Eos % (Auto) Baso % (Auto) Lymph # (Auto) Orange # (Auto) Eos # (Auto) Baso # (Auto) Abs Immat Gran (auto) Absolute Neuts (auto) Absolute Nucleated RBC 0.000 Nucleated RBC % (auto) 0.0 ESR Sodium 140 Potassium 3.9 Chloride 103 Carbon Dioxide 27 Anion Gap 14 BUN 5 L Creatinine 1.08 Estim Creat Clear Calc 138.8 Estimated GFR > 60 Random Glucose 102 Lactic Acid Calcium 9.0 Total Bilirubin AST ALT Alkaline Phosphatase Troponin I High Sens C-Reactive Protein Total Protein Albumin Vancomycin Trough 9.5 L Urine Opiates Screen Urine Fentanyl Screen Ur Barbiturates Screen Ur Phencyclidine Scrn Ur Amphetamines Screen U Benzodiazepines Scrn Urine Cocaine Screen U Marijuana (THC) Screen COVID-19 ([facility]) COVID-19 Clin Com 06/04/21 11:37 WBC RBC Hgb Hct MCV MCH MCHC RDW Plt Count MPV Immature Gran % (Auto) Neut % (Auto) Lymph % (Auto) Orange % (Auto) Eos % (Auto) Baso % (Auto) Lymph # (Auto) Orange # (Auto) Eos # (Auto) Baso # (Auto) Abs Immat Gran (auto) Absolute Neuts (auto) Absolute Nucleated RBC Nucleated RBC % (auto) ESR Sodium Potassium Chloride Carbon Dioxide Anion Gap BUN Creatinine Estim Creat Clear Calc Estimated GFR Random Glucose Lactic Acid Calcium Total Bilirubin AST ALT Alkaline Phosphatase Troponin I High Sens C-Reactive Protein Total Protein Albumin Vancomycin Trough Urine Opiates Screen POSITIVE H Urine Fentanyl Screen POSITIVE H Ur Barbiturates Screen POSITIVE H Ur Phencyclidine Scrn Not Detected Ur Amphetamines Screen Not Detected U Benzodiazepines Scrn Not Detected Urine Cocaine Screen POSITIVE H U Marijuana (THC) Screen Not Detected COVID-19 ([facility]) COVID-19 Clin Com Airway Mallampati Class: I TM Dist: >3cm Neck ROM: Full Loose/Missing/Broken Teeth: Yes Heart: ok Lungs: ok Assessment and Plan Final Anesthetic Review Family History of Problems with Anesthesia: No History of Problems with Anesthesia: No NPO: Yes ASA Class: II Final Preanesthetic Review: No Changes in Pt Med Stat, Meds/Allgs Chart Reviewed, Consent Obtained/Reviewed and Anes Risks/Benef Reviewed Patient Risk: Intermediate Procedure Risk: Low Anesthetic Plan Anesthetic Plan: GA and Agree w/ Assess. and Plan Disposition: Standard PACU
--- NOTE | 2021-06-04 13:56 | PC.NURSE ---
Dr. Dao & Dr. Addison @ bedside for ultrasound RUE. 2pm
--- NOTE | 2021-06-04 15:14 | MHC.SHP ---
Pre-Procedural Eval Section A Date of Service: 06/04/21 The patient is an INPATIENT: Yes Changes since office visit: No Cold of Flu in the past 2 weeks, No New Medical Problems, No Changes in Medication and No Patient answered all questions The History & Physical has been completed within 30 days and I have reviewed it.: Yes Section B Chief Complaint: Cellulitis/ abscess Allergies: Allergies Allergy/AdvReac Type Severity Reaction Status Date / Time naltrexone [NALTREXONE] Allergy Unknown HIVES Verified 06/04/21 13:23 Plan I have reviewed the history and physical and performed a pertinent physical examination on my patient. No changes have occurred unless specified.
--- NOTE | 2021-06-04 15:15 | P.OP_ITS ---
Operative Note Operative Note Date of Service: 06/04/21 Narrative: Operative Note Narrative: Preop diagnosis: 1. Right antecubital and brachial shooters abscesses Postop diagnosis: Same Procedure: 1. Incision and drainage right antecubital shooters abscess and right brachial /biceps shooters abscess Surgeon: Carol Johnston MD Anesthesia: General Findings: copious creamy yellow purulent material from both the antecubital fossa and the anterior aspect of the biceps muscle belly drains: Valentina drain Tourniquet time: 0 minutes EBL: 5.0 ml Specimen: cultures taken of purulent material Drains: None Complications: None Disposition: Brought to the recovery room in stable condition Plan: admit back to Medicine. Continue IV antibiotics wound check tomorrow, and remove Valentina drain. Indications: The patient is a 25 year old young man who is an IV drug user who has cellulitis and evidence of a right antecubital ritesh abscess as well as an abscess in the muscle belly of the biceps muscle. The risks and benefits of operative treatment, including but not limited to risk of damage to blood vessels, nerves, tendons, infection, recurrence, persistent pain or numbness, incomplete resolution of preoperative symptoms, or need for further surgery were discussed with the patient and they wished to proceed with surgery. Procedure: Once consent was obtained patient was brought back to the operating suite and placed in the operating table in a supine position. Anesthesia was administered by the anesthesia team. The right upper extremity was prepped and draped to the shoulder in a standard surgical fashion. no tourniquet was utilized. I 1st made an L-shaped incision in the antecubital fossa extending approximately 1.5 cm transversely and then angling proximally another 1.5 cm. The incision was made through the skin to the subcutaneous tissues using a 15. Blade. We immediately had copious amounts of yellow ta purulent material. We took a culture of this material. I made a 2nd incision directly over the anterolateral biceps. the incision was longitudinally oriented and measured 2 cm in length. I then carefully dissected through the subcutaneous layer to the fascia over the anterolateral biceps. I then penetrated the fascia with tenotomy scissors. Again we had copious yellow ta purulent material. Both wounds were then copiously irrigated with normal saline. We tried to use the mechanical head of operation and logistics, but in the end I felt bulb syringe best flushed out each of these wounds. We used at least 2 L of normal saline. Once satisfied with our incision, drainage and irrigation I then was able to pass a silicone Valentina drain from the biceps wound to the antecubital fossa wound. The drain was left sticking out of both wounds to allow for drainage. The I closed the skin proximal to the antecubital drain and distal to the biceps strain using some nylon suture. There was plenty of room for drainage about the [place] drain in both areas. Sterile dressing was then applied. The patient appears to have tolerated the procedure well and with no complications. All digits were well vascularized conclusion of the case.
--- NOTE | 2021-06-04 15:22 | P.CNID_ITS ---
History of Present Illness Data of Consult Service Date: 06/04/21 Requesting physician: Brittney Vora Primary Care Provider: None Physician HPI Reason for consult: right arm swelling He presents to ER with right arm pain and swelling from axilla down with redness for last two to three days. He has concern over use of arm with discomfort and has used arm injection inpast. He has fever as well. He denies prior endocarditis or spinal infection. [facility] Past Medical History Medical History (Updated 06/14/21 @ 21:55 by Tiki Marsh MD) Alcohol abuse Bacteremia Polysubstance abuse Tobacco use disorder Family History Family history: reviewed and not pertinent Surgical History Surgical History No pertinent past surgical history Social History Social History Household Members: Other Housing: Homeless Do you presently have visiting nurse or other home services: No Alcohol intake: current Alcohol intake frequency: 3 or more drinks per day Patient Tobacco Use Status: Current everyday Tobacco user Tobacco use type: Cigarette Cigarette Packs Per Day: 0.5 Cigarettes Per Day: 10.0 Substance Use Type: Crack/Cocaine and Heroin service: No Current occupational status: unemployed Meds Allergies Allergy/AdvReac Type Severity Reaction Status Date / Time naltrexone [NALTREXONE] Allergy Unknown HIVES Verified 06/13/21 07:54 Active Medications: Current Medications Acetaminophen (Acetaminophen 325 Mg Tablet) 650 mg PO Q6H PRN PRN Reason: Pain, Mild (Pain Scale 1-3) Acetaminophen (Acetaminophen 325 Mg Tablet) 650 mg PO ONCE PRN PRN Reason: Pain, Mild (Pain Scale 1-3) Docusate Sodium (Docusate Sodium 100 Mg Capsule) 100 mg PO DAILY PRN PRN Reason: Constipation Enoxaparin Sodium (Enoxaparin Sodium 40 Mg/0.4 Ml Syringe) 40 mg SUBCUT Q24H [facility] Last Admin: 06/03/21 06:05 Dose: 40 mg Documented by: Fentanyl (Fentanyl Citrate/Pf 100 Mcg/2 Ml Vial) 50 mcg IVPUSH Q5M PRN; Protocol PRN Reason: Pain, Severe (Pain Scale 7-10) Hydromorphone HCl (Hydromorphone Hcl 1 Mg/Ml Syringe) 0.5 mg IVPUSH Q4H PRN; Protocol PRN Reason: Pain, Severe (Pain Scale 7-10) Last Admin: 06/04/21 12:36 Dose: 0.5 mg Documented by: Hydromorphone HCl (Hydromorphone Hcl 0.5 Mg/0.5 Ml Syringe) 0.5 mg IVPUSH Q5M PRN; Protocol PRN Reason: Pain, Severe (Pain Scale 7-10) Vancomycin HCl 1,250 mg/ (Sodium Chloride) 250 mls @ 166.667 mls/hr IV Q12H [facility] Last Infusion: 06/04/21 10:45 Dose: Infused Documented by: Lactated Ringer's (Lr) 1,000 mls @ 100 mls/hr IVCONT .Q10H [facility] Last Admin: 06/04/21 11:20 Dose: 100 mls/hr Documented by: Piperacillin Sod/Tazobactam (Sod 3.375 gm/ Sodium Chloride) 50 mls @ 100 mls/hr IV Q6H [facility] Last Infusion: 06/04/21 09:03 Dose: Infused Documented by: Medication (No Benzodiazepines) 1 each MISCELLANE DAILY [facility] Ondansetron HCl (Ondansetron Hcl 4 Mg/2 Ml Vial) 4 mg IVPUSH Q8H PRN PRN Reason: Nausea and Vomiting Last Admin: 06/04/21 07:34 Dose: 4 mg Documented by: Ondansetron HCl (Ondansetron Hcl 4 Mg/2 Ml Vial) 4 mg IVPUSH ONCE PRN PRN Reason: Nausea and Vomiting Oxycodone HCl (Oxycodone Hcl Immed Release 5 Mg Tablet) 10 mg PO ONCE PRN PRN Reason: Pain, Severe (Pain Scale 7-10) Pharmacy Consult (Consult Rx Vancomycin Dosing) 1 each MISCELLANE DAILY PRN PRN Reason: Consult order Pharmacy Consult (Consult Rx Vancomycin Dosing) 1 each MISCELLANE DAILY PRN PRN Reason: Consult order Phenobarbital (Phenobarbital 30 Mg Tablet) 60 mg PO BID [facility]; Protocol Stop: 06/05/21 09:01 Last Admin: 06/04/21 08:21 Dose: 60 mg Documented by: Phenobarbital (Phenobarbital 30 Mg Tablet) 30 mg PO BID [facility]; Protocol Stop: 06/07/21 09:01 Phenobarbital (Phenobarbital 30 Mg Tablet) 30 mg PO DAILY [facility]; Protocol Stop: 06/09/21 09:01 Sodium Chloride (0.9 % Sodium Chloride Flush 3 Ml Syringe) 3 ml IVFLUSH QSHIFT [facility] Last Admin: 06/04/21 07:24 Dose: Not Given Documented by: Physical Exam Vital Signs: Vital Signs: Last Vital Signs Temp 96.9 F 06/04/21 13:08 Pulse 89 06/04/21 13:08 Resp 16 06/04/21 13:08 BP 133/85 06/04/21 13:08 Pulse Ox 100 06/04/21 13:08 BMI result Body Mass Index 32.1 Const: General: cooperative HENMT: Head: Yes normal to inspection Mouth: Normal oral and palatal mucosa present Resp: Effort & Inspection: normal respiratory effort Cardio: Rate: regular rate Rhythm: regular rhythm GI: Palpation (GI): Soft to palpation and nontender : General: Yes no CVA tenderness Back/Spine/Pelvis: Back: no CVA tenderness Extrem: Other: redness and swelling right arm from axilla to fingers Results Labs CBC & Chem 7: 06/04/21 07:18 06/04/21 07:18 Labs: Short CBC 06/04/21 Range/Units 07:18 WBC 8.8 (4.8-10.8) X10*3/uL Hgb 12.7 L (14.0-18.0) g/dl Hct 36.8 L (42.0-52.0) % Plt Count 214 D (160-400) X10*3/uL BMP 06/04/21 06/04/21 07:18 07:18 Sodium 140 Potassium 3.9 Chloride 103 Carbon Dioxide 27 BUN 5 L Creatinine 1.03 1.08 Calcium 9.0 Microbiology Microbiology Results: Microbiology 06/03/21 00:39 Blood - Venous Blood Culture - Preliminary No growth after 24 hours. 06/03/21 00:38 Blood - Venous Blood Culture - Preliminary No growth after 24 hours. Assessment and Plan (1) Polysubstance abuse: Status: Acute (2) Cellulitis: Status: Acute The cellulitis likely related to strep or staph There may be abscess to drain and surgery involved as concern for limb at risk Plan Would give Vancomycin and Zosyn for now. Await cultures from blood ?abscess drainage Will likely need 3-5 d IV treatment and longer if bacteremic.
[2021-06-04] MEDS: fentaNYL citrate/PF 100 MCG/2 ML VIAL 50 MCG IVPUSH ×4 (16:00→16:15)
[2021-06-04] MEDS: oxyCODONE HCl Immed Release 5 MG TABLET 10 MG PO (16:00)
[2021-06-04] MEDS: HYDROmorphone HCl 0.5 MG/0.5 ML SYRINGE IVPUSH ×2 (16:20→16:50)
--- NOTE | 2021-06-04 17:59 | HO.ADDICT_ITS ---
History of Present Illness Date of Service: 06/04/21 Chief Complaint: Cellulitis/ abscess Reason for Consult: polysubstance abuse Requesting physician: Alexis Mahmood Sources of Information: patient interviewed, chart reviewed and crisis/core team assessment reviewed HPI Narrative: Patient is a 25-year-old male with past medical history of polysubstance abuse that includes heroin, cocaine, as well as alcohol. Presented to ED with cellulitis / upper right arm abscess. Admitted for further care and treatment. Patient reports a history of injecting heroin as well as cocaine in his hand and in the right arm.? He reports that he also picks at his scabs on the right arm constantly.? He drinks alcohol daily, a nip to a pint and has history of alcohol withdrawal seizures. Utox positive for opiates, fentanyl, barbituates, cocaine. EKG on 06/03 shows QTc of 422. Upon approach, patient was in ED overflow area, resting on bed. He did not appear to be in any type of distress. He reported withdrawal sx of runny nose, cold, yawning, watery eyes, nausea, body aches. Says he last used substances just prior to coming to hospital. He was cooperative during encounter. He expressed an interest in resuming methadone, as he reports he has received it at several local clinics, and found it helpful in maintaining abstinence from using substances. He reports that he has been a patient at the [facility] methadone clinic in [place], and would like to return there. He says his last methadone dose was 120mg, several months ago. He was recently in [place], and says he had been in a detox facility. He was unclear regarding dates, but says it was several months ago. He says he has been using as much as 10 bundles of heroin daily, and several grams of cocaine daily. He is willing to work with addiction team in re-starting methadone. It was explained that as it has been at least several months, he would need to be started at a low dose, with slow titration. He is willing to speak with recovery clinician and coaches also while inpatient. Past Psychiatric History: unknown Medical Evaluation Reviewed: Yes Review of Systems Review of Systems A full review of systems was completed and was negative with the exception of pertinent positives noted in history of the presenting illness (HPI). Constitutional: Reports no additional constitutional complaints Diagnostics Vital Signs (24Hr): Vital Signs - 24 hr 06/04/21 01:09 06/04/21 07:40 06/04/21 10:40 Temperature 99.8 F 97 F Pulse Rate 95 91 81 Respiratory Rate 18 16 16 Blood Pressure 117/69 123/76 140/87 H Pulse Oximetry 100 98 95 06/04/21 13:08 06/04/21 15:20 06/04/21 15:25 Temperature 96.9 F 97.7 F Pulse Rate 89 91 103 H Respiratory Rate 16 28 H 24 H Blood Pressure 133/85 115/61 116/58 L Pulse Oximetry 100 95 100 06/04/21 15:30 06/04/21 15:35 06/04/21 15:50 Temperature Pulse Rate 104 H 96 85 Respiratory Rate 24 H 24 H 22 H Blood Pressure 131/62 145/92 H 139/93 H Pulse Oximetry 100 100 100 06/04/21 16:00 06/04/21 16:05 06/04/21 16:10 Temperature Pulse Rate 89 83 81 Respiratory Rate 24 H 24 H 22 H Blood Pressure 130/97 H 142/95 H 144/89 H Pulse Oximetry 100 99 99 06/04/21 16:15 06/04/21 16:20 06/04/21 16:25 Temperature Pulse Rate 78 85 88 Respiratory Rate 20 20 20 Blood Pressure 145/102 H 143/98 H 120/65 Pulse Oximetry 98 99 99 06/04/21 16:40 06/04/21 16:50 06/04/21 16:55 Temperature 97.7 F Pulse Rate 72 74 82 Respiratory Rate 20 20 20 Blood Pressure 129/77 126/85 122/71 Pulse Oximetry 99 99 99 06/04/21 17:33 Temperature 97.6 F Pulse Rate 82 Respiratory Rate 18 Blood Pressure 141/74 H Pulse Oximetry 96 BMI result Body Mass Index 32.1 Labs Results: 06/04/21 07:18 06/04/21 07:18 Labs: Laboratory Results - last 48 hr 06/03/21 06/03/21 06/03/21 00:29 00:38 00:38 WBC RBC Hgb Hct MCV MCH MCHC RDW Plt Count MPV Immature Gran % (Auto) Neut % (Auto) Lymph % (Auto) Carson % (Auto) Eos % (Auto) Baso % (Auto) Lymph # (Auto) Carson # (Auto) Eos # (Auto) Baso # (Auto) Abs Immat Gran (auto) Absolute Neuts (auto) Absolute Nucleated RBC Nucleated RBC % (auto) ESR Sodium 136 Potassium 3.4 Chloride 98 Carbon Dioxide 26 Anion Gap 15 BUN 8 L Creatinine 0.96 Estim Creat Clear Calc 156.1 Estimated GFR > 60 Random Glucose 104 Lactic Acid 1.1 Calcium 9.0 Total Bilirubin 0.8 AST 14 ALT 18 Alkaline Phosphatase 99 Troponin I High Sens C-Reactive Protein 18.62 H Total Protein 6.7 Albumin 3.7 Vancomycin Trough Urine Opiates Screen Urine Fentanyl Screen Ur Barbiturates Screen Ur Phencyclidine Scrn Ur Amphetamines Screen U Benzodiazepines Scrn Urine Cocaine Screen U Marijuana (THC) Screen COVID-19 (DEREK) Negative COVID-PowerPlan See Note 06/03/21 06/03/21 06/03/21 00:38 00:38 00:38 WBC 10.1 RBC 4.41 L Hgb 12.7 L Hct 37.5 L MCV 85.0 MCH 28.8 MCHC 33.9 RDW 11.9 Plt Count 209 MPV 9.4 Immature Gran % (Auto) 0.2 Neut % (Auto) 65.4 Lymph % (Auto) 25.7 Carson % (Auto) 8.2 Eos % (Auto) 0.3 Baso % (Auto) 0.2 Lymph # (Auto) 2.6 Carson # (Auto) 0.8 Eos # (Auto) 0.0 Baso # (Auto) 0.0 Abs Immat Gran (auto) 0.02 Absolute Neuts (auto) 6.6 Absolute Nucleated RBC 0.000 Nucleated RBC % (auto) 0.0 ESR 26 H Sodium Potassium Chloride Carbon Dioxide Anion Gap BUN Creatinine Estim Creat Clear Calc Estimated GFR Random Glucose Lactic Acid Calcium Total Bilirubin AST ALT Alkaline Phosphatase Troponin I High Sens < 3.5 C-Reactive Protein Total Protein Albumin Vancomycin Trough Urine Opiates Screen Urine Fentanyl Screen Ur Barbiturates Screen Ur Phencyclidine Scrn Ur Amphetamines Screen U Benzodiazepines Scrn Urine Cocaine Screen U Marijuana (THC) Screen COVID-19 (DEREK) COVID-PowerPlan 06/03/21 06/03/21 06/04/21 08:40 08:40 07:18 WBC 9.3 RBC 4.39 L Hgb 12.6 L Hct 37.4 L MCV 85.2 MCH 28.7 MCHC 33.7 RDW 12.0 Plt Count 162 MPV 10.0 Immature Gran % (Auto) 0.5 H Neut % (Auto) 69.4 Lymph % (Auto) 21.4 Carson % (Auto) 7.8 Eos % (Auto) 0.6 Baso % (Auto) 0.3 Lymph # (Auto) 2.0 Carson # (Auto) 0.7 Eos # (Auto) 0.1 Baso # (Auto) 0.0 Abs Immat Gran (auto) 0.05 H Absolute Neuts (auto) 6.5 Absolute Nucleated RBC 0.000 Nucleated RBC % (auto) 0.0 ESR Sodium 134 L Potassium 3.3 Chloride 101 Carbon Dioxide 24 Anion Gap 12 BUN 7 L Creatinine 0.86 1.03 Estim Creat Clear Calc 174.3 145.5 Estimated GFR > 60 > 60 Random Glucose 136 H Lactic Acid Calcium 8.7 Total Bilirubin AST ALT Alkaline Phosphatase Troponin I High Sens C-Reactive Protein Total Protein Albumin Vancomycin Trough Urine Opiates Screen Urine Fentanyl Screen Ur Barbiturates Screen Ur Phencyclidine Scrn Ur Amphetamines Screen U Benzodiazepines Scrn Urine Cocaine Screen U Marijuana (THC) Screen COVID-19 (DEREK) COVID-19 Clin Com 06/04/21 06/04/21 06/04/21 07:18 07:18 07:18 WBC 8.8 RBC 4.39 L Hgb 12.7 L Hct 36.8 L MCV 83.8 MCH 28.9 MCHC 34.5 RDW 11.9 Plt Count 214 D MPV 9.6 Immature Gran % (Auto) Neut % (Auto) Lymph % (Auto) Carson % (Auto) Eos % (Auto) Baso % (Auto) Lymph # (Auto) Carson # (Auto) Eos # (Auto) Baso # (Auto) Abs Immat Gran (auto) Absolute Neuts (auto) Absolute Nucleated RBC 0.000 Nucleated RBC % (auto) 0.0 ESR Sodium 140 Potassium 3.9 Chloride 103 Carbon Dioxide 27 Anion Gap 14 BUN 5 L Creatinine 1.08 Estim Creat Clear Calc 138.8 Estimated GFR > 60 Random Glucose 102 Lactic Acid Calcium 9.0 Total Bilirubin AST ALT Alkaline Phosphatase Troponin I High Sens C-Reactive Protein Total Protein Albumin Vancomycin Trough 9.5 L Urine Opiates Screen Urine Fentanyl Screen Ur Barbiturates Screen Ur Phencyclidine Scrn Ur Amphetamines Screen U Benzodiazepines Scrn Urine Cocaine Screen U Marijuana (THC) Screen COVID-19 (DEREK) COVID-19 [facility] Com 06/04/21 11:37 WBC RBC Hgb Hct MCV MCH MCHC RDW Plt Count MPV Immature Gran % (Auto) Neut % (Auto) Lymph % (Auto) Carson % (Auto) Eos % (Auto) Baso % (Auto) Lymph # (Auto) Carson # (Auto) Eos # (Auto) Baso # (Auto) Abs Immat Gran (auto) Absolute Neuts (auto) Absolute Nucleated RBC Nucleated RBC % (auto) ESR Sodium Potassium Chloride Carbon Dioxide Anion Gap BUN Creatinine Estim Creat Clear Calc Estimated GFR Random Glucose Lactic Acid Calcium Total Bilirubin AST ALT Alkaline Phosphatase Troponin I High Sens C-Reactive Protein Total Protein Albumin Vancomycin Trough Urine Opiates Screen POSITIVE H Urine Fentanyl Screen POSITIVE H Ur Barbiturates Screen POSITIVE H Ur Phencyclidine Scrn Not Detected Ur Amphetamines Screen Not Detected U Benzodiazepines Scrn Not Detected Urine Cocaine Screen POSITIVE H U Marijuana (THC) Screen Not Detected COVID-19 (DEREK) COVID-19 Clin Com Imaging Radiology Impressions: ITS Impressions Elbow X-Ray 06/03/21 12:37 IMPRESSION: Large amount of soft tissue edema without definite acute bony abnormality appreciated. No radiopaque foreign body. Humerus MRI 06/03/21 18:13 IMPRESSION: Cellulitis with subcutaneous abscess in the region of the antecubital fossa of the right elbow, contiguous with an intramuscular abscess of the biceps as detailed in the comments. Mental Status Exam Mental Status Exam Narrative: Unkempt male, in NAD. Withdrawal sx noted include yawning, restlessness, runny nose. Anxious mood/affect. Patient Appearance: Fatigued, Disheveled and Unkempt Patient Orientation: Person, Place, Time and Situation Level of Consciousness: Awake and Appropriate Patient Behavior: Appropriate, Cooperative and Good Eye Contact Mood Description: Anxious Affect Description: Anxious Patient Cognition Impaired: No Ability to Follow Directions: Good Speech Pattern: Clear, Appropriate and Coherent Memory Description: Intact Hallucinations: None Delusions: Not Present Thought Process: Intact Thought Content: positive for Intact Depressive Symptoms: Increased Anxiety Judgement: Fair Judgement and Insight: patient is help-seeking Medications Medications Current Medications Acetaminophen (Acetaminophen 325 Mg Tablet) 650 mg PO Q6H PRN PRN Reason: Pain, Mild (Pain Scale 1-3) Acetaminophen (Acetaminophen 325 Mg Tablet) 650 mg PO ONCE PRN PRN Reason: Pain, Mild (Pain Scale 1-3) Docusate Sodium (Docusate Sodium 100 Mg Capsule) 100 mg PO DAILY PRN PRN Reason: Constipation Hydromorphone HCl (Hydromorphone Hcl 1 Mg/Ml Syringe) 0.5 mg IVPUSH Q4H PRN; Protocol PRN Reason: Pain, Severe (Pain Scale 7-10) Last Admin: 06/04/21 12:36 Dose: 0.5 mg Documented by: Hydromorphone HCl (Hydromorphone Hcl 0.5 Mg/0.5 Ml Syringe) 0.5 mg IVPUSH Q5M PRN; Protocol PRN Reason: Pain, Severe (Pain Scale 7-10) Last Admin: 06/04/21 16:50 Dose: 0.5 mg Documented by: Vancomycin HCl 1,250 mg/ (Sodium Chloride) 250 mls @ 166.667 mls/hr IV Q12H [facility] Last Infusion: 06/04/21 10:45 Dose: Infused Documented by: Lactated Ringer's (Lr) 1,000 mls @ 100 mls/hr IVCONT .Q10H [facility] Last Admin: 06/04/21 11:20 Dose: 100 mls/hr Documented by: Piperacillin Sod/Tazobactam (Sod 3.375 gm/ Sodium Chloride) 50 mls @ 100 mls/hr IV Q6H [facility] Last Infusion: 06/04/21 17:52 Dose: Infused Documented by: Medication (No Benzodiazepines) 1 each MISCELLANE DAILY [facility] Ondansetron HCl (Ondansetron Hcl 4 Mg/2 Ml Vial) 4 mg IVPUSH Q8H PRN PRN Reason: Nausea and Vomiting Last Admin: 06/04/21 07:34 Dose: 4 mg Documented by: Ondansetron HCl (Ondansetron Hcl 4 Mg/2 Ml Vial) 4 mg IVPUSH ONCE PRN PRN Reason: Nausea and Vomiting Pharmacy Consult (Consult Rx Vancomycin Dosing) 1 each MISCELLANE DAILY PRN PRN Reason: Consult order Pharmacy Consult (Consult Rx Vancomycin Dosing) 1 each MISCELLANE DAILY PRN PRN Reason: Consult order Phenobarbital (Phenobarbital 30 Mg Tablet) 60 mg PO BID [facility]; Protocol Stop: 06/05/21 09:01 Last Admin: 06/04/21 08:21 Dose: 60 mg Documented by: Phenobarbital (Phenobarbital 30 Mg Tablet) 30 mg PO BID [facility]; Protocol Stop: 06/07/21 09:01 Phenobarbital (Phenobarbital 30 Mg Tablet) 30 mg PO DAILY [facility]; Protocol Stop: 06/09/21 09:01 Sodium Chloride (0.9 % Sodium Chloride Flush 3 Ml Syringe) 3 ml IVFLUSH QSHIFT [facility] Last Admin: 06/04/21 07:24 Dose: Not Given Documented by: Allergies Allergies Allergy/AdvReac Type Severity Reaction Status Date / Time naltrexone [NALTREXONE] Allergy Unknown HIVES Verified 06/04/21 13:23 Assessment & Plan Assessment & Plan (1) Polysubstance abuse: Status: Acute Code(s): F19.10 - Other psychoactive substance abuse, uncomplicated Assessment and Plan: Patient with longstanding history of substance use disorder, including heroin / fentanyl, cocaine, alcohol, nicotine. He is help seeking, asking to be reinitiated with methadone, to help manage withdrawals and cravings. Has a hist ory of methadone at several local clinics, with most recent clinic [facility] in [place], with last visit there several months ago. Patient had I&D today of upper arm access, currently receiving opioid pain medication. (2) Alcohol abuse: Status: Acute Code(s): F10.10 - Alcohol abuse, uncomplicated (3) Tobacco use disorder: Status: Acute Code(s): F17.200 - Nicotine dependence, unspecified, uncomplicated Plan 1. Manage withdrawal symptoms as appropriate. 2. Referral to [facility] methadone clinic in [place] to be placed by Recovery / addiction team. 3. Start low dose methadone, titrate up as tolerated, and as other opiods are tapered down. 4. Addiction consult service will continue to follow. Thank you I spent ____40__ minutes with the patient and/or on the patient floor today, greater than?50% of which was spent counseling/coordinating care. Patient educated on: diagnosis, medication risk/benefits and substance abuse Informed Consent: [facility] Past Medical History Medical Problems Affecting Mental Status: No Medical History Alcohol abuse Polysubstance abuse Tobacco use disorder Psychiatric History: Substance Abuse History Family History Family history: reviewed and not pertinent Surgical History Surgical History No pertinent past surgical history Social History Social History Household Members: Friend(s) Housing: Homeless Do you presently have visiting nurse or other home services: No Alcohol intake: current Alcohol intake frequency: 3 or more drinks per day Patient Tobacco Use Status: Current someday Tobacco user Tobacco use type: Cigarette Cigarette Packs Per Day: 0.5 Cigarettes Per Day: 10 Substance Use Type: Crack/Cocaine, Heroin and IV Drugs service: No Current occupational status: unemployed
[2021-06-04] MEDS: methADONE HCl 20 MG/2 ML ORAL.CONC PO (18:13)
--- NOTE | 2021-06-04 21:45 | PM.EVENT ---
Event Note Date of Service: 06/04/21 Event Note: pt wants to leave AMA very anxious spoekt o him extensively about the risk of sepsis and endocarditis if he is not fully treated for his infection pt aware of the risk he is taking by leaving AMA, worst case scenario risking pt will be provided with script for PO abx
--- NOTE | 2021-06-05 04:49 | PC.NURSE ---
Pt was feeling very restless and wanting to go home. Nurse attempted to get medication to help patient with restlessness and withdrawal symptoms. Pt refused the aid. Patient still wanted to leave. Md was called. MD tried to convince patient to stay and explained the dangers of leaving. Patient still insisted on leaving. Discharge antibiotic scripts were given and patient left.
--- NOTE | 2021-06-05 14:23 | PM.DS ---
DS: Providers Provider Date of Service: 06/05/21 Date of admission: 06/03/21 05:46 Primary care physician: None Physician Consults: 06/03/21 05:48 Consult to Care Team Routine Comment: Reason for consultation: polysubstance abuse 06/03/21 08:42 Consult to Infectious Diseases Routine Consulting Provider: Tiki Marsh Reason for consultation: celluitis Has provider been notified: No 06/03/21 10:17 Consult to Orthopedics Routine Consulting Provider: Carol Johnston Reason for consultation: ivdu-severe cellulitis of arm,ROM hand and arm ristricted. Has provider been notified: No DS: Diagnosis Discharge Diagnosis (1) Polysubstance abuse: Status: Acute (2) Alcohol abuse: Status: Acute (3) Tobacco use disorder: Status: Acute DS: Summary Hospital Course Hospital Course: 25-year-old male history of cocaine abuse, heroin abuse and alcohol: came to the hospital due to right upper extremity cellulitis: started on IV antibiotics and MRI arm showed : found to have abcess - drain by surgery yesterday: overnight patient left against medical advice, p.o. antibiotics scripts were given by night attending and risks were discussed with the patient in detail. final diagnosis : bilateral arm cellulitis/ abscess of the right arm. Time Spent with Patient Time attestation: Total time spent providing and/or coordinating discharge services: Discharge coordination time: Greater than 30 minutes Quality: Stroke Does the patient have a stroke diagnosis?: No Physical Exam Vital Signs: Vital Signs: Last Vital Signs Temp 97.8 F 06/04/21 19:32 Pulse 92 06/04/21 19:32 Resp 17 06/04/21 19:32 BP 144/83 H 06/04/21 19:32 Pulse Ox 100 06/04/21 19:32 BMI result Body Mass Index 32.1 Left last night. not seen . DS: Data Data Completed and Pending Labs on day of discharge: Preliminary micro results at discharge 06/04/21 Unknown Routine Culture - Preliminary Arm Right Staphylococcus species 06/03/21 00:39 Blood Culture - Preliminary Blood - Venous No growth after 48 hours. 06/03/21 00:38 Blood Culture - Preliminary Blood - Venous No growth after 48 hours. Discharge Plan Discharge Patient Disposition: Left Against Medical Advice Discharge Diagnosis: right arm cellulitis Referrals: Physician,None [Primary Care Provider] - 1 Week Discharge Medications: New doxycycline hyclate 100 mg capsule 100 mg PO BID 14 Days Qty: 28 0RF ciprofloxacin HCl 750 mg tablet 750 mg PO Q12H 14 Days Qty: 28 0RF Discharge Orders: Discharge Order (Routine); Ordered 06/05/21 Ordered By: Brittney Vora Print Language: Prydeinig Care Plan Goals: Left against medical advise. Health Concerns: As above. Plan of Treatment: As above. Assessment: As above. Discharge Date/Time: 06/05/21 00:49
--- NOTE | 2021-06-06 15:29 | HO.POSTANES ---
Post Anesthesia Evaluation Post Anesthesia Evaluation Anesthesia: General Mental Status: Awake Pain Control: Satisfactory Nausea/Vomiting: None Hydration: Adequate Anesthesia-Related Issues: No Anes. Related Issues
== END 2021-06-05 00:49 | disposition left against medical advice (07) | DRG 364 ==
LOC: HO.ED 06-03 01:00 → HO.EDOVER 06-03 05:55 → HO.S3 06-04 16:02
PROVIDERS: Anesthesiology; Orthopaedic Surgery; Physician Assistant Medical; Admitting Provider Internal Medicine; Emergency Provider Hospitalist; Visit Provider Internal Medicine
PROC: 0J9G0ZZ Drainage of Right Lower Arm Subcutaneous Tissue and Fascia, Open Approach (ICD-10-PCS; principal; 2021-06-04 13:30)
DX: L02.413 Cutaneous abscess of right upper limb (principal); M60.000 Infective myositis, unspecified right arm; F10.10 Alcohol abuse, uncomplicated; L03.113 Cellulitis of right upper limb; F17.210 Nicotine dependence, cigarettes, uncomplicated; Z20.822 Contact with and (suspected) exposure to COVID-19; F19.10 Other psychoactive substance abuse, uncomplicated; Z71.6 Tobacco abuse counseling
CPT/HCPCS: 36415; 73080; 73220; 80048; 80053; 80202; 80307; 82565; 83605; 84484; 85025; 85027; 85652; 86140; 87040; 87071; 87077; 87186; 87205; 87635; 90471; 90715; 93005; 96361; 96365; 96375; 99285; A9585; J1170; J1650; J2250; J2405; J2543; J2560; J3010; J3370

== ENCOUNTER → 2021-06-08 12:01 | Outpatient (BNVA) | payer MEDICAID, SELFPAY | PROVIDERS: Visit Provider Orthopaedic Surgery | DX: Z48.03 Encounter for change or removal of drains (principal) | CPT/HCPCS: 99212 ==

== ENCOUNTER 2021-06-13 07:44 | Inpatient (IN) | payer MEDICAID, SELFPAY ==
[2021-06-13] VITALS (7 sets, daily range): BP systolic 131–167; BP diastolic 72–110; PULSE 85–129; RESP 14–18; TEMP 36.1–37.2; O2SAT 95–97; BMI 29.9; BMI 30.9
--- NOTE | ~2021-06-13 | CT_ITS ---
EXAMINATION: CT HUMERUS WITH CONTRAST, RIGHT CLINICAL INFORMATION: Cellulitis. Evaluate for biceps abscess. COMPARISON: Right humerus MRI dated 06/03/2021. TECHNIQUE: Contiguous axial CT images of the right humerus were obtained following the IV administration of 85 mL Omnipaque 350 IV contrast. Sagittal and coronal reformats were provided and reviewed. This CT examination was performed using dose optimization techniques as appropriate, variously including the following: *Automated exposure control *Adjustment of mA and/or kV according to patient size (this includes techniques or standardized protocols for targeted exams where dose is matched to indication/reason for exam; i.e. extremities or head) *Use of iterative reconstruction technique DLP: 220 mGy-cm FINDINGS: There are areas of subcutaneous soft tissue stranding along the ventral aspect of the upper arm anterior to the biceps muscle belly, likely representing a combination of postsurgical change and previously seen cellulitis. The previously seen subcutaneous fluid collection is no longer identified. There appears to be persistent skin ulceration. Previously seen intramuscular abscess not identified on the current CT, however, evaluation is somewhat limited when compared to MRI. No evidence of acute muscle or tendon injury. No significant muscle or tendon retraction. No acute fracture or dislocation. No lytic or blastic osseous lesion. No periosteal reaction or evidence of osteomyelitis. CT/CT humerus RT w con IMPRESSION: Areas of anterior subcutaneous soft tissue stranding along the ventral aspect of the distal upper arm likely representing a combination of postsurgical change and previously seen cellulitis. No persistent subcutaneous or intramuscular fluid collection/abscess. No acute osseous abnormality.
--- NOTE | 2021-06-13 08:28 | ECG_ITS ---
Test Reason : tachycardia Blood Pressure : / mmHG Vent. Rate : 119 BPM Atrial Rate : 119 BPM P-R Int : 154 ms QRS Dur : 110 ms QT Int : 330 ms P-R-T Axes : 046 006 056 degrees QTc Int : 464 ms Sinus tachycardia Incomplete right bundle branch block Borderline ECG When compared with ECG of 03-JUN-2021 00:16, T wave inversion no longer evident in Anterior leads Referred By: Maddie Jackson Electronically Signed By:Luis Quevedo
--- NOTE | 2021-06-13 08:47 | ED.WOUNDLAC ---
HPI - Wound/Laceration General Chief Complaint: Wound/Laceration Stated Complaint: wound infection Time Seen by Provider: 06/13/21 08:14 Source: patient Mode of arrival: ambulatory History of Present Illness HPI narrative: 25-year-old male with PMH ETOH abuse, IVDA s/p I&D right antecubital space for abscess on 06/04 and drain removal on 06/08, presenting to the ED complaining of purulence pus drainage from wound sites, erythema, swelling, & increasing pain. Denies fever/chills. Patient reports he is currently homeless, denies taking any antibiotics currently. Onset (ago): day(s) Related Data Home Medications Medication Instructions Recorded Confirmed No Known Home Meds 06/13/21 06/13/21 Allergies Allergy/AdvReac Type Severity Reaction Status Date / Time naltrexone [NALTREXONE] Allergy Unknown HIVES Verified 06/13/21 07:54 Review of Systems Review of Systems: Constitutional: No Fever, No Chills, No Fatigue, No Malaise ENT/Mouth: No Ear Pain,No sore throat, No Rhinorrhea, No Swallowing Difficulty Eyes: No Eye Pain, No Redness, No Vision Changes Cardiovascular: No Chest Pain, No SOB, No Edema, No Palpitations Respiratory: No Cough, No Dyspnea Gastrointestinal: No Nausea, No Vomiting, No Diarrhea, No Constipation, No Abdominal pain Genitourinary: No Dysuria, No Urinary Frequency, No Hematuria, No Flank Pain Musculoskeletal: + joint pain, No Myalgias, + Joint Swelling Skin: + Skin Lesions, No rash Neuro: No Weakness, No Numbness, No Paresthesias, No Headache Yes all other systems are reviewed and are negative [facility] Past Medical History Attestation statement: The following information was validated with the patient. Medical History Alcohol abuse Polysubstance abuse Tobacco use disorder Surgical History No pertinent past surgical history Social History Social History Household Members: Friend(s) Housing: Homeless Do you presently have visiting nurse or other home services: No Alcohol intake: current Alcohol intake frequency: 3 or more drinks per day Patient Tobacco Use Status: Current someday Tobacco user Tobacco use type: Cigarette Cigarette Packs Per Day: 0.5 Cigarettes Per Day: 10 Substance Use Type: Crack/Cocaine, Heroin and IV Drugs Advance Directives: No Advance Directives Information Provided: No service: No Current occupational status: unemployed Physical Exam Vital Signs: Vital Signs: Last Vital Signs Temp 98.0 F 06/13/21 10:44 Pulse 116 H 06/13/21 10:44 Resp 14 06/13/21 10:44 BP 143/95 H 06/13/21 10:44 Pulse Ox 96 06/13/21 10:44 BMI result Body Mass Index 29.9 Const: General: cooperative, healthy appearing and no acute distress Orientation/consciousness: patient oriented x3 Limitations: no limitations HENMT: Head: Yes normal to inspection and Yes atraumatic Ears: hearing grossly normal bilaterally General nose exam: Normal external nose present Face and sinus: Yes normal facial exam Eyes: General: appearance normal, both eyes and all related structures EOM: EOMs intact bilaterally Neck: Neck: Yes normal visual inspection and Yes no meningeal signs Resp: Effort & Inspection: normal respiratory effort and no respiratory distress Auscultation: clear to auscultation bilaterally Cardio: Rate: regular rate Heart sounds: S1 normal heart sound present and S2 normal heart sound present Peripheral pulses: radial pulses present Skin: Rashes: no rashes Neuro: General: patient oriented x3 and no meningeal signs Gait exam (Neuro): Normal gait present Extrem: Other: Please refer to images above. Incision sites noted with sutures intact with surrounding erythema, wound dehiscence/opening and induration. Warm to touch. No expressible pus drainage. No fluctuance. No streaking or circumferential involvement Course Course Course Narrative: -due to obesity patient's ideal body weight =55kg x 30 mg/kg IVF = 1650 cc -0954--no leukocytosis. H&H stable. +KEVIN with creatinine 1.46, CRP mildly elevated. ESR elevated -AST/ALT mildly elevated > consulted orthopedics who recommended admission for IV antibiotics CT humerus RT w con IMPRESSION: Areas of anterior subcutaneous soft tissue stranding along the ventral aspect of the distal upper arm likely representing a combination of postsurgical change and previously seen cellulitis. No persistent subcutaneous or intramuscular fluid collection/abscess. No acute osseous abnormality. -based on qSOFA patient does not meet sepsis >Plan to admit MDM - Wound/Laceration MDM Narrative Medical decision making narrative: 25-year-old male with PMH ETOH abuse, IVDA s/p I&D right antecubital space for abscess on 06/04 and drain removal on 06/08, presenting to the ED complaining of purulence pus drainage from wound sites, erythema, swelling, & increasing pain. On exam initially hypertensive, tachycardic, NAD, physical exam as above, please refer to images. Concern for abscess reaccumulation vs cellulitis. Low concern for osteomyelitis Plan: EKG, labs, blood cultures/lactic, IVF, IV vancomycin based on wound culture, orthopedic consult Differential Diagnosis Differential diagnosis: Likely abscess Medical Records Attestation: I reviewed the patient's medical records. Lab Data Attestation: I reviewed the patient's lab results. Result diagrams: 06/13/21 09:09 06/13/21 09:09 Labs: Lab Results 06/13/21 06/13/21 06/13/21 Range/Units 09:09 09:09 09:09 WBC 9.8 (4.8-10.8) X10*3/uL RBC 4.62 (4.60-5.80) X10*6/uL Hgb 13.1 L (14.0-18.0) g/dl Hct 38.6 L (42.0-52.0) % MCV 83.5 (80.0-98.0) fL MCH 28.4 (27.0-33.0) pg MCHC 33.9 (31.0-36.0) g/dl RDW 12.2 (11.0-16.0) % Plt Count 313 D (160-400) X10*3/uL MPV 9.0 L (9.4-12.4) fL Immature Gran % (Auto) 0.3 (0.0-0.4) % Neut % (Auto) 78.8 H (45-73) % Lymph % (Auto) 15.0 L (20-40) % [place] % (Auto) 5.6 (2-11) % Eos % (Auto) 0.2 (0-4) % Baso % (Auto) 0.1 (0-2) % Lymph # (Auto) 1.5 (1.2-4.9) X10*3/uL [place] # (Auto) 0.6 (0.1-1.2) X10*3/uL Eos # (Auto) 0.0 (0.0-0.4) X10*3/uL Baso # (Auto) 0.0 (0.0-0.2) X10*3/uL Abs Immat Gran (auto) 0.03 (0.00-0.03) X10*3/uL Absolute Neuts (auto) 7.7 (2.0-8.3) x10*3/uL Absolute Nucleated RBC 0.000 (0.0-0.012) X10*3/uL Nucleated RBC % (auto) 0.0 (0.0-0.2) /100WBC ESR 25 H (0-15) MM/HR Sodium 138 (135-145) mmol/L Potassium 3.7 (3.3-5.1) mmol/L Chloride 100 (96-108) mmol/L Carbon Dioxide 31 H (22-29) mmol/L Anion Gap 11 L (12-20) BUN 11 D (9-16) mg/dL Creatinine 1.46 H (0.5-1.4) mg/dL Estim Creat Clear Calc 99.3 Estimated GFR 58 Random Glucose 148 H D (60-115) mg/dL Lactic Acid (0.5-2.0) mmol/L Calcium 10.3 H D (8.4-10.2) mg/dL Total Bilirubin 0.3 (0.0-1.0) mg/dL Direct Bilirubin 0.2 (0.0-0.5) mg/dL AST 39 H D (5-37) U/L ALT 45 H (0-40) U/L Alkaline Phosphatase 116 (39-117) U/L C-Reactive Protein 1.27 H (< or = 0.50) mg/dL Total Protein 7.8 (6.5-8.0) g/dL Albumin 4.2 (3.5-5.0) g/dL COVID-19 (DEREK) (Negative) COVID-19 Clin Com 06/13/21 06/13/21 Range/Units 09:09 09:34 WBC (4.8-10.8) X10*3/uL RBC (4.60-5.80) X10*6/uL Hgb (14.0-18.0) g/dl Hct (42.0-52.0) % MCV (80.0-98.0) fL MCH (27.0-33.0) pg MCHC (31.0-36.0) g/dl RDW (11.0-16.0) % Plt Count (160-400) X10*3/uL MPV (9.4-12.4) fL Immature Gran % (Auto) (0.0-0.4) % Neut % (Auto) (45-73) % Lymph % (Auto) (20-40) % [place] % (Auto) (2-11) % Eos % (Auto) (0-4) % Baso % (Auto) (0-2) % Lymph # (Auto) (1.2-4.9) X10*3/uL [place] # (Auto) (0.1-1.2) X10*3/uL Eos # (Auto) (0.0-0.4) X10*3/uL Baso # (Auto) (0.0-0.2) X10*3/uL Abs Immat Gran (auto) (0.00-0.03) X10*3/uL Absolute Neuts (auto) (2.0-8.3) x10*3/uL Absolute Nucleated RBC (0.0-0.012) X10*3/uL Nucleated RBC % (auto) (0.0-0.2) /100WBC ESR (0-15) MM/HR Sodium (135-145) mmol/L Potassium (3.3-5.1) mmol/L Chloride (96-108) mmol/L Carbon Dioxide (22-29) mmol/L Anion Gap (12-20) BUN (9-16) mg/dL Creatinine (0.5-1.4) mg/dL Estim Creat Clear Calc Estimated GFR Random Glucose (60-115) mg/dL Lactic Acid 1.6 (0.5-2.0) mmol/L Calcium (8.4-10.2) mg/dL Total Bilirubin (0.0-1.0) mg/dL Direct Bilirubin (0.0-0.5) mg/dL AST (5-37) U/L ALT (0-40) U/L Alkaline Phosphatase (39-117) U/L C-Reactive Protein (< or = 0.50) mg/dL Total Protein (6.5-8.0) g/dL Albumin (3.5-5.0) g/dL COVID-19 (DEREK) Negative (Negative) COVID-19 Clin Com See Note ECG Data Attestation: I personally reviewed and interpreted this ECG as follows: ECG interpretation date: 06/13/21 ECG interpretation time: 08:38 Interpretation: EKG sinus tachycardia rate of 119. Incomplete right bundle branch block. QTC 464. Artifact present no STEMI Discharge Plan Discharge Clinical Impression: Cellulitis Patient Disposition: Admitted As Inpatient Prescriptions: No Action No Known Home Meds 0RF
[2021-06-13] MEDS: 0.9 % Sodium Chloride 1,000 ML 999 ML IV ×2 (09:11→10:44)
[2021-06-13 09:14] LABS: MANUAL DIFF FLAG NO
[2021-06-13 09:18] LABS: Basophils Percent Auto 0.1 % (0-2); Eosinophils Percent Auto 0.2 % (0-4); Hematocrit 38.6 % (42.0-52.0); Hemoglobin 13.1 g/dl (14.0-18.0); Imm Gran Abs Auto 0.03 X10*3/uL (0.00-0.03); Imm Gran Pct Auto 0.3 % (0.0-0.4); Lymphocytes Absolute Auto 1.5 X10*3/uL (1.2-4.9); Mean Corpuscular HGB Conc 33.9 g/dl (31.0-36.0); Mean Corpuscular Hemoglobin 28.4 pg (27.0-33.0); Mean Corpuscular Volume 83.5 fL (80.0-98.0); Monocytes Absolute Auto 0.6 X10*3/uL (0.1-1.2); Monocytes Percent Auto 5.6 % (2-11); Neutrophils Absolute Auto 7.7 x10*3/uL (2.0-8.3); Neutrophils Percent Auto 78.8 % (45-73); Platelet Count 313 X10*3/uL (160-400); Red Blood Count 4.62 X10*6/uL (4.60-5.80); Red Cell Distribution Width 12.2 % (11.0-16.0); White Blood Count 9.8 X10*3/uL (4.8-10.8)
[2021-06-13 09:25] LABS: Lactic Acid 1.6 mmol/L (0.5-2.0)
[2021-06-13 09:31] LABS: Alanine Aminotransferase 45 U/L (0-40); Albumin Level 4.2 g/dL (3.5-5.0); Alkaline Phosphatase 116 U/L (39-117); Anion Gap 11 (12-20); Aspartate Amino Transferase 39 U/L (5-37); Bilirubin Direct 0.2 mg/dL (0.0-0.5); Bilirubin Total 0.3 mg/dL (0.0-1.0); Blood Urea Nitrogen 11 mg/dL (9-16); C Reactive Protein 1.27 mg/dL (< or = 0.50); Calcium 10.3 mg/dL (8.4-10.2); Carbon Dioxide 31 mmol/L (22-29); Chloride 100 mmol/L (96-108); Creatinine Clr Calc Pharmacy 99.3; Estimated Glomerular Filt Rate 58; Glucose Random 148 mg/dL (60-115); Potassium 3.7 mmol/L (3.3-5.1); Sodium 138 mmol/L (135-145); Total Protein 7.8 g/dL (6.5-8.0)
[2021-06-13] MEDS: Ketorolac Tromethamine 15 MG/ML VIAL IVPUSH (09:37)
[2021-06-13 09:55] LABS: Erythrocyte Sedimentation Rate 25 MM/HR (0-15)
[2021-06-13 10:07] LABS: COVID-19 Test Negative (Negative)
[2021-06-13] MEDS: iohexoL 350 MG/ML 100 ML INFUS..BTL IV (10:34)
--- NOTE | 2021-06-13 11:50 | MHC.RECOVSUP ---
Recovery Support note: Patient is a 25 year old Ukrainian speaking male who presented to [facility] due to an arm infection. Patient is known to this lead technical writer from a previous admission in May for the same reason. Patient left AMA on 06/05 citing he couldn't tolerate the pain and withdrawal symptoms. Patient reports using 3-4 bundles of heroin a day. Patient last used prior to arrival and denies withdrawal symptoms at this time. Patient is interested in restarting methadone. Patient states I'm tired of the street life. Patient appears motivated to remain in treatment, stating I need to stay this time. Discussed case with Daly Dick [employer] and ED provider. Plan for patient to start methadone while in the hospital. This lead technical writer will follow up with patient later on today to discuss withdrawal symptoms.
--- NOTE | 2021-06-13 11:51 | PM.IMHP ---
History of Present Illness Date of Service: 06/13/21 Chief Complaint: Arm pain 25 year old man presenting with pain to his left mid arm from cellulitis and old abscess. He was admitted to [facility] on 06/03, had abscess to left arm drained and left AMA on 06/05. He was discharged with oral antibiotics. He is homeless so reported that he wasn't taking care of the wound properly. He continued to use IV drugs. He was not noted to have any fever or leukocytosis but he was tachycardic. His creatinine was noted to be elevated at 1.27. Humeral CT did not show new abscess but showed continued cellulitis. He was given Vancomycin and IV fluids in the ED. Will admit for further management of cellulitis. Review of Systems Review of Systems: Denies any recent fever chills or decrease in appetite respiratory denies any shortness of breath coverage production cardiovascular denies chest pain gastrointestinal denies any dysphagia abdominal pain nausea vomiting or diarrhea genitourinary denies any dysuria frequency or hematuria musculoskeletal denies any joint pain or swelling neuropsych denies any weakness or seizures all other systems reviewed are negative [facility] Medical History Alcohol abuse Polysubstance abuse Tobacco use disorder Pertinent family history: No heart disease Surgical History No pertinent past surgical history Social History (Updated 06/13/21 @ 12:08 by Johnna Hill NP) Household Members: Friend(s) Housing: Homeless Do you presently have visiting nurse or other home services: No Alcohol intake: current Alcohol intake frequency: 3 or more drinks per day Patient Tobacco Use Status: Current someday Tobacco user Tobacco use type: Cigarette Cigarette Packs Per Day: 0.5 Cigarettes Per Day: 10 Substance Use Type: Crack/Cocaine, Heroin and IV Drugs Substance Use Type Other:: 3 bundles a day with speed balls Advance Directives: No Advance Directives Information Provided: No service: No Current occupational status: unemployed Meds Allergies Allergy/AdvReac Type Severity Reaction Status Date / Time naltrexone [NALTREXONE] Allergy Unknown HIVES Verified 06/13/21 07:54 Active Medications: Current Medications Acetaminophen (Acetaminophen 325 Mg Tablet) 650 mg PO Q6H PRN PRN Reason: Pain, Mild (Pain Scale 1-3) Heparin Sodium (Porcine) (Heparin Sodium,Porcine 5,000 Unit/Ml Vial) 5,000 unit SUBCUT Q12H MARLON Vancomycin HCl 1,000 mg/ (Sodium Chloride) 270 mls @ 270 mls/hr IV Q12H MARLON Sodium Chloride (Ns) 1,000 mls @ 125 mls/hr IVCONT .Q8H MARLON Lorazepam (Lorazepam 1 Mg Tablet) 1 mg PO Q4H PRN PRN Reason: anxiety Morphine Sulfate (Morphine Sulfate 2 Mg/Ml Cartridge) 2 mg IVPUSH Q4H PRN; Protocol PRN Reason: Pain, Mild (Pain Scale 1-3) Oxycodone HCl (Oxycodone Hcl Immed Release 15 Mg Tablet) 15 mg PO Q4H PRN PRN Reason: withdrawal Pharmacy Consult (Consult Rx Vancomycin Dosing) 1 each MISCELLANE DAILY PRN PRN Reason: Consult order Pharmacy Consult (Consult Rx Perform Med Rec) 1 each MISCELLANE ONCE PRN PRN Reason: Consult order Pharmacy Consult (Consult Rx Vancomycin Dosing) 1 each MISCELLANE DAILY PRN PRN Reason: Consult order Sodium Chloride (0.9 % Sodium Chloride Flush 3 Ml Syringe) 3 ml IVFLUSH QSHIFT COUNTS INCLUDE 234 BEDS AT THE [facility] Home Medications Medication Instructions Recorded Confirmed Last Taken Type No Known Home Meds 06/13/21 06/13/21 Unknown History Physical Exam Vital Signs and Narrative: Vital Signs: Last Vital Signs Temp 98.0 F 06/13/21 10:44 Pulse 116 H 06/13/21 10:44 Resp 14 06/13/21 10:44 BP 143/95 H 06/13/21 10:44 Pulse Ox 96 06/13/21 10:44 BMI result Body Mass Index 29.9 Appearing in no acute distress head is normocephalic atraumatic eyes pupils are PERRLA sclera is anicteric mouth throat mucous membranes are intact and moist neck is supple no lymphadenopathy, no JVD noted lung sounds are clear to auscultation heart regular rate rhythm, clear S1, S2 positive bowel sounds, abdomen is soft, nontender neuro patient is alert x3, no focal deficits S/p drain right arm multiple areas of old scabbing to arms and legs from injection Results Labs CBC and Chem 7: 06/13/21 09:09 06/13/21 09:09 Labs: Laboratory Results - last 24 hr 06/13/21 06/13/21 06/13/21 09:09 09:09 09:09 MCV 83.5 MCH 28.4 MCHC 33.9 RDW 12.2 Plt Count 313 D MPV 9.0 L Immature Gran % (Auto) 0.3 Neut % (Auto) 78.8 H Lymph % (Auto) 15.0 L [place] % (Auto) 5.6 Eos % (Auto) 0.2 Baso % (Auto) 0.1 Lymph # (Auto) 1.5 [place] # (Auto) 0.6 Eos # (Auto) 0.0 Baso # (Auto) 0.0 Abs Immat Gran (auto) 0.03 Absolute Neuts (auto) 7.7 Absolute Nucleated RBC 0.000 Nucleated RBC % (auto) 0.0 ESR 25 H Anion Gap 11 L Estim Creat Clear Calc 99.3 Estimated GFR 58 Random Glucose 148 H D Lactic Acid Calcium 10.3 H D Total Bilirubin 0.3 Direct Bilirubin 0.2 AST 39 H D ALT 45 H Alkaline Phosphatase 116 C-Reactive Protein 1.27 H Total Protein 7.8 Albumin 4.2 COVID-19 (DEREK) COVID-19 Clin Com 06/13/21 06/13/21 09:09 09:34 MCV MCH MCHC RDW Plt Count MPV Immature Gran % (Auto) Neut % (Auto) Lymph % (Auto) [place] % (Auto) Eos % (Auto) Baso % (Auto) Lymph # (Auto) [place] # (Auto) Eos # (Auto) Baso # (Auto) Abs Immat Gran (auto) Absolute Neuts (auto) Absolute Nucleated RBC Nucleated RBC % (auto) ESR Anion Gap Estim Creat Clear Calc Estimated GFR Random Glucose Lactic Acid 1.6 Calcium Total Bilirubin Direct Bilirubin AST ALT Alkaline Phosphatase C-Reactive Protein Total Protein Albumin COVID-19 (DEREK) Negative COVID-19 Clin Com See Note Imaging Radiologist's Impressions: Impressions Humerus CT 06/13/21 10:32 IMPRESSION: Areas of anterior subcutaneous soft tissue stranding along the ventral aspect of the distal upper arm likely representing a combination of postsurgical change and previously seen cellulitis. No persistent subcutaneous or intramuscular fluid collection/abscess. No acute osseous abnormality. Assessment and Plan (1) Cellulitis: Status: Acute Plan 25 year old man admitted with cellulitis to right anterior humerus. He was admitted on 06/03 and left AMA on 06/05. The abscess was drained at that time but patient did not complete treatment and he left with oral antibiotics. Patient likely requires 2 midnights in the hospital due to treatment for abscess including IV antibiotics. Cellulitis. No sepsis. Right arm, s/p abscess drain Humeral CT neg for new abscess formation Vancomycin ID consult wound care pain management KEVIN Likely from hypovolemia IV fluids Substance abuse IV heroine and cocaine addiction consult pending Oxycodone and ativan for withdrawal symptoms. DVT prophylaxis with heparin attending Dr. Wick Full code Quality Stroke Does the patient have a stroke diagnosis?: No VTE Prior VTE?: No VTE Risk Level:: Medical - moderate - high VTE Device Contraindication: Treatment Not Indicated VTE Drug Contraindication: N/A - Med Ordered
[2021-06-13] MEDS: Heparin Sodium,Porcine 5,000 UNIT/ML VIAL 5000 UNIT SUBCUT (12:08)
[2021-06-13] MEDS: 0.9 % Sodium Chloride 1,000 ML 125 ML IVCONT ×2 (12:08→20:51)
--- NOTE | 2021-06-13 12:26 | PHA.PROG ---
Admission Date/Time: June 13, 2021 11:45 Indication: Purulence pus drainage from wound, hx IVDU Weight in k.7 kg Adjusted body weight in K.6 kg Gap body weight in K.2 kg Obesity Dosing Indication % IBW: 128% Serum Creatinine - Last 168 Hours 06/13/21 09:09 Creatinine 1.46 H Estimated CrCl and GFR - Last 168 Hours 06/13/21 09:09 Estim Creat Clear Calc 99.3 Estimated GFR 58 Vancomycin Loading Dose: 2000 mg Current Vancomycin Dosing Regimen: 1000 mg Q12H Date and Time for next Vancomycin Level to be drawn: 06/14 @ 1900 Pharmacist Comments on Vancomycin Plan: Patient required obesity dosing since % IBW > 120% Begin 1000 mg Q12H 06/13 @ 2100. Expected AUC 536 with a trough of 15.9 Trough to be drawn prior to 4th dose Pharmacy to monitor renal function daily Jeannie Monson, Andrew Vancomycin dosing will take advantage of [employer] as a clinical decision support tool that uses Bayesian modeling to calculate individual patient's pharmacokinetic parameters and forecast the patient's drug concentration time course with the target goal AUC 24 range of 400 - 600 mg/L/hr.
--- NOTE | 2021-06-13 12:54 | PM.EVENT ---
Event Note Date of Service: 06/13/21 Event Note: Addiction Chart reviewed, including addiction consult note from previous admission. History of MOUD-methadone up to 120mg Patient admitted with abscess of forearm. Reporting heroin/fentanyl use 3-4 bundles IV QD No withdrawal sx reported Plan: -methadone 20mg X1 -methadone 10mg X1 PRN in the evening (total of 30mg today) -methadone 35mg in AM -will follow up and titrate as appropriate -continue with pain medications as necessary -please HOLD methadone doses if patient appears to be sedated in any way
[2021-06-13] MEDS: methADONE HCl 20 MG/2 ML ORAL.CONC PO (13:58)
--- NOTE | 2021-06-13 17:46 | MHC.RECOVSUP ---
? Reason for consult Recovery Support o Current location: ED09 o Identified substance use concern: Heroin <del>-</del> <del>Overdose</del> <del>-</del> <del>Withdrawal</del> <del>-</del> <del>Seeking</del> <del>ATS</del> <del>(detox)</del> - Support ? Intervention: <del>o</del> <del>ATS</del> <del>bed</del> <del>search</del> <del>started/completed/in</del> <del>process</del> <del>o</del> <del>MAT</del> <del>started</del> <del>or</del> <del>to</del> <del>be</del> <del>started</del> o Community resources provided o Harm reduction discussion ? Plan: <del>o</del> <del>Referral</del> <del>to</del> <del>[facility]</del> <del>o</del> <del>Bed</del> <del>search</del> <del>in</del> <del>progress</del> <del>to</del> <del>o</del> <del>Follow</del> <del>up</del> <del>tomorrow</del> <del>o</del> <del>Patient</del> <del>awaiting</del> <del>crisis</del> <del>evaluation</del> o Patient to follow up with [facility] after discharge ? Additional information: Met with Patient we talk with patient and we talked recovery and Harm reduction.. patient stated that he thinking about going to [place].. Stated that [place] is not good for him.. Patient stated that he has a regional rehabilitation director in [place].. and said that his health and wellness coach was coming to visit him...
[2021-06-13 20:07] LABS: Amphetamine Screen Urine Not Detected (Not Detect); Barbiturates, Urine POSITIVE (Not Detect); Benzodiazepines Screen Urine Not Detected (Not Detect); Cannabinoid Screen Urine Not Detected (Not Detect); Cocaine Screen Urine POSITIVE (Not Detect); Fentanyl, urine POSITIVE (Not Detect); Opiate Screen Urine POSITIVE (Not Detect); Phencyclidine Screen Urine Not Detected (Not Detect)
[2021-06-13] MEDS: bisacodyL 5 MG TABLET.DR 10 MG PO (21:24)
[2021-06-13] MEDS: methADONE HCl 20 MG/2 ML ORAL.CONC 10 MG PO (21:25)
[2021-06-13 23:19] LABS: Creatinine Clr Calc Pharmacy 129.1; Estimated Glomerular Filt Rate > 60
[2021-06-14] MEDS: Heparin Sodium,Porcine 5,000 UNIT/ML VIAL 5000 UNIT SUBCUT ×3 (00:44→23:06)
[2021-06-14] MEDS: 0.9 % Sodium Chloride 1,000 ML 125 ML IVCONT ×3 (04:38→23:05)
[2021-06-14 07:25] VITALS: BP 133/84; PULSE 84; RESP 20; TEMP 37.1; O2SAT 98
[2021-06-14 08:12] LABS: MANUAL DIFF FLAG NO
[2021-06-14] MEDS: methADONE HCl 20 MG/2 ML ORAL.CONC 35 MG PO (08:21)
[2021-06-14 08:26] LABS: Basophils Percent Auto 0.5 % (0-2); Eosinophils Absolute Auto 0.2 X10*3/uL (0.0-0.4); Eosinophils Percent Auto 2.6 % (0-4); Hematocrit 34.5 % (42.0-52.0); Hemoglobin 11.6 g/dl (14.0-18.0); Imm Gran Abs Auto 0.04 X10*3/uL (0.00-0.03); Imm Gran Pct Auto 0.6 % (0.0-0.4); Lymphocytes Absolute Auto 2.8 X10*3/uL (1.2-4.9); Lymphocytes Percent Auto 43.5 % (20-40); Mean Corpuscular HGB Conc 33.6 g/dl (31.0-36.0); Mean Corpuscular Hemoglobin 28.4 pg (27.0-33.0); Mean Corpuscular Volume 84.6 fL (80.0-98.0); Mean Platelet Volume 9.7 fL (9.4-12.4); Monocytes Absolute Auto 0.4 X10*3/uL (0.1-1.2); Monocytes Percent Auto 6.7 % (2-11); Neutrophils Percent Auto 46.1 % (45-73); Platelet Count 292 X10*3/uL (160-400); Red Blood Count 4.08 X10*6/uL (4.60-5.80); Red Cell Distribution Width 12.6 % (11.0-16.0); White Blood Count 6.5 X10*3/uL (4.8-10.8)
[2021-06-14 08:34] LABS: Anion Gap 13 (12-20); Blood Urea Nitrogen 9 mg/dL (9-16); Calcium 8.8 mg/dL (8.4-10.2); Carbon Dioxide 25 mmol/L (22-29); Chloride 107 mmol/L (96-108); Creatinine Clr Calc Pharmacy 126.9; Estimated Glomerular Filt Rate > 60; Glucose Random 80 mg/dL (60-115); Magnesium 1.9 mg/dL (1.6-2.6); Potassium 4.2 mmol/L (3.3-5.1); Sodium 141 mmol/L (135-145)
--- NOTE | 2021-06-14 08:50 | MHC.CM.PN ---
EMR REVIEWED, PT ADMITTED W/HUMERAL ABSCESS HOWEVER IMAGING SHOWS CELLULITIS, NO ABSCESS, PT RECENTLY ADMITTED FOR HUMERAL ABSCESS AND LEFT AMA, PT REPORTS HE IS CURRENTLY HOMELESS AND CAN STAY WITH FRIENDS IN [place] HOWEVER PREFERS AN INPT SA PROGRAM, PT ALSO BEING TITRATED UP ON METHADONE AND HAS HAD ONE VISIT W/RECOVERY TEAM, PT IS INDEPENDENT DENIES USE OF DME AND HAS NO OUT PT PROVIDERS OR SERVICES. D/C PLAN: [facility]RIENDS VS INPT SA PROGRAM, [facility] FOR TRANSPORT PT NOT VACCINATED FOR COVID
[2021-06-14 09:14] LABS: Vancomycin Random 7.3 mcg/mL (15-20)
--- NOTE | 2021-06-14 09:54 | HO.PM.IMPN ---
Subjective Subjective Date of Service: 06/14/21 Review of Systems Follow-up cellulitis Still having pain to the right arm, but better Denies nausea, vomiting, diarrhea All other systems reviewed and are negative Physical Exam Vital Signs: Vital Signs: Last Vital Signs Temp 98.8 F 06/14/21 07:25 Pulse 84 06/14/21 07:25 Resp 20 06/14/21 07:25 BP 133/84 06/14/21 07:25 Pulse Ox 98 06/14/21 07:25 BMI result Body Mass Index 30.9 Appearing in no acute distress lung sounds are clear to auscultation heart regular rate rhythm, clear S1, S2 positive bowel sounds, abdomen is soft, nontender neuro patient is alert x3, no focal deficits Right upper arm s/p abscess drain removal, sutures in place some mild erythema noted, no drainage Objective Data Active Medications Acetaminophen (Acetaminophen 325 Mg Tablet) 650 mg PO Q6H PRN PRN Reason: Pain, Mild (Pain Scale 1-3) Bisacodyl (Bisacodyl 5 Mg Tablet.Dr) 10 mg PO BEDTIME PRN PRN Reason: Constipation Last Admin: 06/13/21 21:24 Dose: 10 mg Documented by: RANDAL Heparin Sodium (Porcine) (Heparin Sodium,Porcine 5,000 Unit/Ml Vial) 5,000 unit SUBCUT Q12H [facility] Last Admin: 06/14/21 00:44 Dose: 5,000 unit Documented by: RANDAL Sodium Chloride (Ns) 1,000 mls @ 125 mls/hr IVCONT .Q8H [facility] Last Admin: 06/14/21 04:38 Dose: 125 mls/hr Documented by: RANDAL Vancomycin HCl 1,000 mg/ (Sodium Chloride) 270 mls @ 270 mls/hr IV Q12H [facility] Lorazepam (Lorazepam 1 Mg Tablet) 1 mg PO Q4H PRN PRN Reason: anxiety Morphine Sulfate (Morphine Sulfate 2 Mg/Ml Cartridge) 2 mg IVPUSH Q4H PRN; Protocol PRN Reason: Pain, Mild (Pain Scale 1-3) Oxycodone HCl (Oxycodone Hcl Immed Release 15 Mg Tablet) 15 mg PO Q4H PRN PRN Reason: withdrawal Pharmacy Consult (Consult Rx Perform Med Rec) 1 each MISCELLANE ONCE PRN PRN Reason: Consult order Pharmacy Consult (Consult Rx Vancomycin Dosing) 1 each MISCELLANE DAILY PRN PRN Reason: Consult order Sodium Chloride (0.9 % Sodium Chloride Flush 3 Ml Syringe) 3 ml IVFLUSH QSHIFT [facility] Last Admin: 06/14/21 08:21 Dose: Not Given Documented by: PIO Non-Admin Reason: IV Running Labs CBC & Chem 7: 06/14/21 08:02 06/14/21 08:02 Labs: Laboratory Results - last 24 hr 06/13/21 06/13/21 06/13/21 09:09 09:34 19:23 MCV MCH MCHC RDW Plt Count MPV Immature Gran % (Auto) Neut % (Auto) Lymph % (Auto) [place] % (Auto) Eos % (Auto) Baso % (Auto) Lymph # (Auto) [place] # (Auto) Eos # (Auto) Baso # (Auto) Abs Immat Gran (auto) Absolute Neuts (auto) Absolute Nucleated RBC Nucleated RBC % (auto) ESR 25 H Anion Gap Estim Creat Clear Calc Estimated GFR Random Glucose Calcium Magnesium Vancomycin Trough 18.0 Random Vancomycin Urine Opiates Screen Urine Fentanyl Screen Ur Barbiturates Screen Ur Phencyclidine Scrn Ur Amphetamines Screen U Benzodiazepines Scrn Urine Cocaine Screen U Marijuana (THC) Screen COVID-19 (DEREK) Negative COVID-19 Clin Com See Note 06/13/21 06/13/21 06/14/21 19:23 19:45 08:01 MCV MCH MCHC RDW Plt Count MPV Immature Gran % (Auto) Neut % (Auto) Lymph % (Auto) [place] % (Auto) Eos % (Auto) Baso % (Auto) Lymph # (Auto) [place] # (Auto) Eos # (Auto) Baso # (Auto) Abs Immat Gran (auto) Absolute Neuts (auto) Absolute Nucleated RBC Nucleated RBC % (auto) ESR Anion Gap Estim Creat Clear Calc 129.1 Estimated GFR > 60 Random Glucose Calcium Magnesium Vancomycin Trough Random Vancomycin 7.3 L Urine Opiates Screen POSITIVE H Urine Fentanyl Screen POSITIVE H Ur Barbiturates Screen POSITIVE H Ur Phencyclidine Scrn Not Detected Ur Amphetamines Screen Not Detected U Benzodiazepines Scrn Not Detected Urine Cocaine Screen POSITIVE H U Marijuana (THC) Screen Not Detected COVID-19 ([facility]EREK) COVID-19 Clin Com 06/14/21 06/14/21 06/14/21 08:02 08:02 08:02 MCV 84.6 MCH 28.4 MCHC 33.6 RDW 12.6 Plt Count 292 MPV 9.7 Immature Gran % (Auto) 0.6 H Neut % (Auto) 46.1 Lymph % (Auto) 43.5 H [place] % (Auto) 6.7 Eos % (Auto) 2.6 Baso % (Auto) 0.5 Lymph # (Auto) 2.8 [place] # (Auto) 0.4 Eos # (Auto) 0.2 Baso # (Auto) 0.0 Abs Immat Gran (auto) 0.04 H Absolute Neuts (auto) 3.0 Absolute Nucleated RBC 0.000 Nucleated RBC % (auto) 0.0 ESR Anion Gap 13 Estim Creat Clear Calc 126.9 Cancelled Estimated GFR > 60 Cancelled Random Glucose 80 D Calcium 8.8 D Magnesium 1.9 Cancelled Vancomycin Trough Random Vancomycin Urine Opiates Screen Urine Fentanyl Screen Ur Barbiturates Screen Ur Phencyclidine Scrn Ur Amphetamines Screen U Benzodiazepines Scrn Urine Cocaine Screen U Marijuana (THC) Screen COVID-19 ([facility]EREK) COVID-19 Clin Com Assessment and Plan (1) Cellulitis: Status: Acute Plan 25 year old man admitted with cellulitis to right anterior humerus. He was admitted on 06/03 and left AMA on 06/05. The abscess was drained at that time but patient did not complete treatment and he left with oral antibiotics. Patient likely requires 2 midnights in the hospital due to treatment for abscess including IV antibiotics. Cellulitis. No sepsis. Right arm, s/p abscess drain Humeral CT neg for new abscess formation Vancomycin ID consult pending wound care pain management KEVIN. Resolved Likely from hypovolemia IV fluids Substance abuse IV heroine and cocaine addiction consult, started on Methadone Oxycodone and ativan for withdrawal symptoms. DVT prophylaxis with heparin attending Dr. Mcdonald Full code Patient requires continued hospitalization due to Cellulitis requiring IV vancomycin, pending blood cultures. Quality Stroke Does the patient have a stroke diagnosis?: No VTE Prior VTE?: No VTE Risk Level:: Medical - moderate - high VTE Device Contraindication: Treatment Not Indicated VTE Drug Contraindication: N/A - Med Ordered
[2021-06-14] MEDS: vancomycin HCL 1,000 MG in 0.9 % Sodium Chloride 250 ML 270 MG IV ×2 (10:33→23:07)
[2021-06-14] MEDS: oxyCODONE HCl Immed Release 15 MG TABLET PO (10:33)
--- NOTE | 2021-06-14 11:38 | PM.CNOR ---
History of Present Illness HPI Consult date: 06/14/21 Chief complaint: HUMERAL ABSCESS Narrative: the patient is a 25-year-old cnkee-rxul-eqisrnnz young man with problems with alcoholism and IV drug use. He was taken to the operating room on 06/04/2021 for an I and D of a right antecubital fossa abscess, as well as an abscess in the anterolateral aspect of the biceps muscle belly. He left AMA on the same day as his surgery, but did acquire and take his oral antibiotics. He was seen in my clinic last week after we called him so that we could remove the drain that passed between the 2 incisions. At that time his biceps and antecubital areas were soft with improving range of motion and no erythema , with a scant amount of serosanguineous drainage. He was admitted from the emergency department for increasing redness about the 2 incision sites. We were consulted regarding this issue. Patient says that he is doing well, and is hopeful to get into an inpatient drug PMFSH Past Medical History Medical History Alcohol abuse Polysubstance abuse Tobacco use disorder Surgical History Surgical History No pertinent past surgical history Social History Social History Household Members: Other Housing: Homeless Do you presently have visiting nurse or other home services: No Alcohol intake: current Alcohol intake frequency: 3 or more drinks per day Patient Tobacco Use Status: Current everyday Tobacco user Tobacco use type: Cigarette Cigarette Packs Per Day: 0.5 Cigarettes Per Day: 10.0 Substance Use Type: Crack/Cocaine and Heroin service: No Current occupational status: unemployed Meds Allergies Allergy/AdvReac Type Severity Reaction Status Date / Time naltrexone [NALTREXONE] Allergy Unknown HIVES Verified 06/13/21 07:54 Active Medications: Current Medications Acetaminophen (Acetaminophen 325 Mg Tablet) 650 mg PO Q6H PRN PRN Reason: Pain, Mild (Pain Scale 1-3) Bisacodyl (Bisacodyl 5 Mg Tablet.Dr) 10 mg PO BEDTIME PRN PRN Reason: Constipation Last Admin: 06/13/21 21:24 Dose: 10 mg Documented by: Heparin Sodium (Porcine) (Heparin Sodium,Porcine 5,000 Unit/Ml Vial) 5,000 unit SUBCUT Q12H [facility] Last Admin: 06/14/21 10:34 Dose: 5,000 unit Documented by: Sodium Chloride (Ns) 1,000 mls @ 125 mls/hr IVCONT .Q8H [facility] Last Admin: 06/14/21 04:38 Dose: 125 mls/hr Documented by: Vancomycin HCl 1,000 mg/ (Sodium Chloride) 270 mls @ 270 mls/hr IV Q12H [facility] Last Admin: 06/14/21 10:33 Dose: 270 mls/hr Documented by: Lorazepam (Lorazepam 1 Mg Tablet) 1 mg PO Q4H PRN PRN Reason: anxiety Morphine Sulfate (Morphine Sulfate 2 Mg/Ml Cartridge) 2 mg IVPUSH Q4H PRN; Protocol PRN Reason: Pain, Mild (Pain Scale 1-3) Ondansetron HCl (Ondansetron Hcl 4 Mg/2 Ml Vial) 4 mg IVPUSH Q6H PRN PRN Reason: Nausea Oxycodone HCl (Oxycodone Hcl Immed Release 15 Mg Tablet) 15 mg PO Q4H PRN PRN Reason: withdrawal Last Admin: 06/14/21 10:33 Dose: 15 mg Documented by: Pharmacy Consult (Consult Rx Perform Med Rec) 1 each MISCELLANE ONCE PRN PRN Reason: Consult order Pharmacy Consult (Consult Rx Vancomycin Dosing) 1 each MISCELLANE DAILY PRN PRN Reason: Consult order Sodium Chloride (0.9 % Sodium Chloride Flush 3 Ml Syringe) 3 ml IVFLUSH QSHIFT [facility] Last Admin: 06/14/21 08:21 Dose: Not Given Documented by: Home Medications Medication Instructions Recorded Confirmed Last Taken Type No Known Home Meds 06/13/21 06/13/21 Unknown History Physical Exam Vital Signs: Vital Signs: Last Vital Signs Temp 98.8 F 06/14/21 07:25 Pulse 84 06/14/21 07:25 Resp 20 06/14/21 07:25 BP 133/84 06/14/21 07:25 Pulse Ox 98 06/14/21 07:25 BMI result Body Mass Index 30.9 Const: General: cooperative, healthy appearing and no acute distress Orientation/consciousness: oriented to person and oriented to place HENMT: Head: Yes normocephalic and Yes atraumatic Eyes: EOM: EOMs intact bilaterally Resp: Effort & Inspection: normal respiratory effort and able to speak in complete sentences Cardio: Jugular venous distension: no JVD Skin: General skin exam: turgor normal Rashes: no rashes Neuro: General: oriented to person and oriented to place Extrem: Other: Evaluation of Right Upper Extremity: Neuro: Median, ulnar, radial nerves motor and sensory intact. Vascular: Cap refill brisk. ROM: Can bring fingers closed to a fist and back out to full extension. Can oppose thumb to fingertips Smooth and painless wrist ROM He has some erythema and mild swelling about the 2 incision sites, 1 over the anterolateral biceps, and the other in the antecubital fossa. Scant serosanguineous drainage. The biceps and antecubital areas are soft. No evidence on physical exam of recurrent abscess. With encouragement he can also actively fully extend his elbow and flex it up to about 100 degrees With complaint of only some mild stiffness in the elbow. CT scan of the in a cubital and humeral aspect of the right arm: This was reviewed by me today and showed cellulitis but no evidence of recurrence of an abscess. Psych: Appearance: grossly normal Affect: normal affect Attitude: cooperative Results Labs Result Diagrams: 06/14/21 08:02 06/14/21 08:02 Labs: Abnormal lab results 06/13/21 06/14/21 06/14/21 Range/Units 19:45 08:01 08:02 RBC 4.08 L (4.60-5.80) X10*6/uL Hgb 11.6 L (14.0-18.0) g/dl Hct 34.5 L (42.0-52.0) % Immature Gran % (Auto) 0.6 H (0.0-0.4) % Lymph % (Auto) 43.5 H (20-40) % Abs Immat Gran (auto) 0.04 H (0.00-0.03) X10*3/uL Random Vancomycin 7.3 L (15-20) mcg/mL Urine Opiates Screen POSITIVE H (Not Detect) Urine Fentanyl Screen POSITIVE H (Not Detect) Ur Barbiturates Screen POSITIVE H (Not Detect) Urine Cocaine Screen POSITIVE H (Not Detect) H & H 06/13/21 06/14/21 Range/Units 09:09 08:02 Hgb 13.1 L 11.6 L (14.0-18.0) g/dl Hct 38.6 L 34.5 L (42.0-52.0) % All other labs normal. Assessment and Plan (1) Cellulitis: Status: Acute Plan Assessment and plan: 1. He has some recurrent cellulitis about the 2 incision sites on the anterior aspect of his right arm. No evidence of recurrent abscess. He is status post an I and D of a right antecubital fossa abscess and of an abscess in the anterolateral aspect of the right bicep muscle belly. Date of surgery 06/04/2021. Cultures grew out MRSA sutures can be removed tomorrow. Recommend continued IV and oral antibiotics. Patient states that he is very interested in beginning and inpatient treatment plan for his drug and alcohol use he may follow-up with p.rdelia. Procedures Date of Service Date of Service: 06/14/21
[2021-06-14] MEDS: Morphine Sulfate 2 MG/ML CARTRIDGE IVPUSH ×2 (12:17→17:49)
[2021-06-14 16:00] VITALS: BP 154/98; PULSE 80; RESP 18; TEMP 36.7; O2SAT 98
--- NOTE | 2021-06-14 16:06 | MHC.RECOVRN ---
Pt interested in returning to [facility] on [facility] in [place], referral sent. Pt interested in CSS in [facility], referral sent to [facility], [facility], and [facility]. Will continue to follow.
--- NOTE | 2021-06-14 17:34 | P.PNADD_ITS ---
Subjective Subjective Date of Service: 06/14/21 Reason For Visit: HUMERAL ABSCESS Interim History: Patient seen X2 today Once in AM when he had recently recieved his methadone. He reported that prior to that he had been vomiting. Withdrawal sx much improved following medication administration, but still experiencing some nausea, dsicussed with attending and Zofran ordered. Patient seen later in the afternoon and he appeared diaphoretic, eyes tearing, yawning noted, and patient reported nausea. Review of Systems Constitutional: Reports as per HPI Mental Status Exam Mental Status Exam Patient Appearance: Appropriate Patient Orientation: Person, Place, Time and Situation Patient Behavior: Appropriate Mood Description: Calm Affect Description: Calm Judgement: Good Diagnostics Vital Signs (24Hr): Vital Signs - 24 hr 06/13/21 20:25 06/13/21 23:45 06/14/21 07:25 Temperature 98.3 F 96.9 F 98.8 F Pulse Rate 98 85 84 Respiratory Rate 17 16 20 Blood Pressure 131/84 135/72 133/84 Pulse Oximetry 97 95 98 06/14/21 16:00 Temperature 98.1 F Pulse Rate 80 Respiratory Rate 18 Blood Pressure 154/98 H Pulse Oximetry 98 BMI result Body Mass Index 30.9 Labs Results: 06/14/21 08:02 06/14/21 08:02 Labs: Laboratory Results - last 48 hr 06/13/21 06/13/21 06/13/21 09:09 09:09 09:09 WBC 9.8 RBC 4.62 Hgb 13.1 L Hct 38.6 L MCV 83.5 MCH 28.4 MCHC 33.9 RDW 12.2 Plt Count 313 D MPV 9.0 L Immature Gran % (Auto) 0.3 Neut % (Auto) 78.8 H Lymph % (Auto) 15.0 L [place] % (Auto) 5.6 Eos % (Auto) 0.2 Baso % (Auto) 0.1 Lymph # (Auto) 1.5 [place] # (Auto) 0.6 Eos # (Auto) 0.0 Baso # (Auto) 0.0 Abs Immat Gran (auto) 0.03 Absolute Neuts (auto) 7.7 Absolute Nucleated RBC 0.000 Nucleated RBC % (auto) 0.0 ESR 25 H Sodium 138 Potassium 3.7 Chloride 100 Carbon Dioxide 31 H Anion Gap 11 L BUN 11 D Creatinine 1.46 H Estim Creat Clear Calc 99.3 Estimated GFR 58 Random Glucose 148 H D Lactic Acid Calcium 10.3 H D Magnesium Total Bilirubin 0.3 Direct Bilirubin 0.2 AST 39 H D ALT 45 H Alkaline Phosphatase 116 C-Reactive Protein 1.27 H Total Protein 7.8 Albumin 4.2 Vancomycin Trough Random Vancomycin Urine Opiates Screen Urine Fentanyl Screen Ur Barbiturates Screen Ur Phencyclidine Scrn Ur Amphetamines Screen U Benzodiazepines Scrn Urine Cocaine Screen U Marijuana (THC) Screen COVID-19 ([facility]) COVID-19 Clin Com 06/13/21 06/13/21 06/13/21 09:09 09:34 19:23 WBC RBC Hgb Hct MCV MCH MCHC RDW Plt Count MPV Immature Gran % (Auto) Neut % (Auto) Lymph % (Auto) [place] % (Auto) Eos % (Auto) Baso % (Auto) Lymph # (Auto) [place] # (Auto) Eos # (Auto) Baso # (Auto) Abs Immat Gran (auto) Absolute Neuts (auto) Absolute Nucleated RBC Nucleated RBC % (auto) ESR Sodium Potassium Chloride Carbon Dioxide Anion Gap BUN Creatinine Estim Creat Clear Calc Estimated GFR Random Glucose Lactic Acid 1.6 Calcium Magnesium Total Bilirubin Direct Bilirubin AST ALT Alkaline Phosphatase C-Reactive Protein Total Protein Albumin Vancomycin Trough 18.0 Random Vancomycin Urine Opiates Screen Urine Fentanyl Screen Ur Barbiturates Screen Ur Phencyclidine Scrn Ur Amphetamines Screen U Benzodiazepines Scrn Urine Cocaine Screen U Marijuana (THC) Screen COVID-19 (DEREK) Negative COVID-19 [facility] Com See Note 06/13/21 06/13/21 06/14/21 19:23 19:45 08:01 WBC RBC Hgb Hct MCV MCH MCHC RDW Plt Count MPV Immature Gran % (Auto) Neut % (Auto) Lymph % (Auto) [place] % (Auto) Eos % (Auto) Baso % (Auto) Lymph # (Auto) [place] # (Auto) Eos # (Auto) Baso # (Auto) Abs Immat Gran (auto) Absolute Neuts (auto) Absolute Nucleated RBC Nucleated RBC % (auto) ESR Sodium Potassium Chloride Carbon Dioxide Anion Gap BUN Creatinine 1.14 Estim Creat Clear Calc 129.1 Estimated GFR > 60 Random Glucose Lactic Acid Calcium Magnesium Total Bilirubin Direct Bilirubin AST ALT Alkaline Phosphatase C-Reactive Protein Total Protein Albumin Vancomycin Trough Random Vancomycin 7.3 L Urine Opiates Screen POSITIVE H Urine Fentanyl Screen POSITIVE H Ur Barbiturates Screen POSITIVE H Ur Phencyclidine Scrn Not Detected Ur Amphetamines Screen Not Detected U Benzodiazepines Scrn Not Detected Urine Cocaine Screen POSITIVE H U Marijuana (THC) Screen Not Detected COVID-19 (DEREK) COVID-19 Clin Com 06/14/21 06/14/21 06/14/21 08:02 08:02 08:02 WBC 6.5 RBC 4.08 L Hgb 11.6 L Hct 34.5 L MCV 84.6 MCH 28.4 MCHC 33.6 RDW 12.6 Plt Count 292 MPV 9.7 Immature Gran % (Auto) 0.6 H Neut % (Auto) 46.1 Lymph % (Auto) 43.5 H [place] % (Auto) 6.7 Eos % (Auto) 2.6 Baso % (Auto) 0.5 Lymph # (Auto) 2.8 [place] # (Auto) 0.4 Eos # (Auto) 0.2 Baso # (Auto) 0.0 Abs Immat Gran (auto) 0.04 H Absolute Neuts (auto) 3.0 Absolute Nucleated RBC 0.000 Nucleated RBC % (auto) 0.0 ESR Sodium 141 Potassium 4.2 Chloride 107 Carbon Dioxide 25 Anion Gap 13 BUN 9 Creatinine 1.16 Cancelled Estim Creat Clear Calc 126.9 Cancelled Estimated GFR > 60 Cancelled Random Glucose 80 D Lactic Acid Calcium 8.8 D Magnesium 1.9 Cancelled Total Bilirubin Direct Bilirubin AST ALT Alkaline Phosphatase C-Reactive Protein Total Protein Albumin Vancomycin Trough Random Vancomycin Urine Opiates Screen Urine Fentanyl Screen Ur Barbiturates Screen Ur Phencyclidine Scrn Ur Amphetamines Screen U Benzodiazepines Scrn Urine Cocaine Screen U Marijuana (THC) Screen COVID-19 (DEREK) COVID-19 Clin Com Imaging Radiology Impressions: ITS Impressions Humerus CT 06/13/21 10:32 IMPRESSION: Areas of anterior subcutaneous soft tissue stranding along the ventral aspect of the distal upper arm likely representing a combination of postsurgical change and previously seen cellulitis. No persistent subcutaneous or intramuscular fluid collection/abscess. No acute osseous abnormality. Medications Medications Current Medications Acetaminophen (Acetaminophen 325 Mg Tablet) 650 mg PO Q6H PRN PRN Reason: Pain, Mild (Pain Scale 1-3) Bisacodyl (Bisacodyl 5 Mg Tablet.Dr) 10 mg PO BEDTIME PRN PRN Reason: Constipation Last Admin: 06/13/21 21:24 Dose: 10 mg Documented by: Heparin Sodium (Porcine) (Heparin Sodium,Porcine 5,000 Unit/Ml Vial) 5,000 unit SUBCUT Q12H [facility] Last Admin: 06/14/21 10:34 Dose: 5,000 unit Documented by: Sodium Chloride (Ns) 1,000 mls @ 125 mls/hr IVCONT .Q8H [facility] Last Admin: 06/14/21 14:28 Dose: 125 mls/hr Documented by: Vancomycin HCl 1,000 mg/ (Sodium Chloride) 270 mls @ 270 mls/hr IV Q12H [facility] Last Infusion: 06/14/21 11:50 Dose: Infused Documented by: Lorazepam (Lorazepam 1 Mg Tablet) 1 mg PO Q4H PRN PRN Reason: anxiety Methadone HCl (Methadone Hcl 20 Mg/2 Ml Oral.Conc) 50 mg PO ONCE ONE Stop: 06/15/21 08:01 Morphine Sulfate (Morphine Sulfate 2 Mg/Ml Cartridge) 2 mg IVPUSH Q4H PRN; Protocol PRN Reason: Pain, Mild (Pain Scale 1-3) Last Admin: 06/14/21 12:17 Dose: 2 mg Documented by: Ondansetron HCl (Ondansetron Hcl 4 Mg/2 Ml Vial) 4 mg IVPUSH Q6H PRN PRN Reason: Nausea Oxycodone HCl (Oxycodone Hcl Immed Release 15 Mg Tablet) 15 mg PO Q4H PRN PRN Reason: withdrawal Last Admin: 06/14/21 10:33 Dose: 15 mg Documented by: Pharmacy Consult (Consult Rx Perform Med Rec) 1 each MISCELLANE ONCE PRN PRN Reason: Consult order Pharmacy Consult (Consult Rx Vancomycin Dosing) 1 each MISCELLANE DAILY PRN PRN Reason: Consult order Sodium Chloride (0.9 % Sodium Chloride Flush 3 Ml Syringe) 3 ml IVFLUSH QSHIFT [facility] Last Admin: 06/14/21 08:21 Dose: Not Given Documented by: Allergies Allergies Allergy/AdvReac Type Severity Reaction Status Date / Time naltrexone [NALTREXONE] Allergy Unknown HIVES Verified 06/13/21 07:54 Assessment & Plan Assessment & Plan (1) Opioid use disorder: Status: Acute Code(s): F11.90 - Opioid use, unspecified, uncomplicated Assessment and Plan: * still experiencing opioid withdrawal. Additional 10mg methadone todat for total of 45mg * Methadone 50mg ordered for tomorrow morning * will continue to follow and titrate dose as appropriate * RSRN to follow up with OTP in the community. Plan I spent ___35___ minutes with the patient and/or on the patient floor today, greater than?50% of which was spent counseling/coordinating care.
[2021-06-14] MEDS: methADONE HCl 20 MG/2 ML ORAL.CONC 10 MG PO (17:42)
[2021-06-14] MEDS: LORazepam 1 MG TABLET PO (19:31)
--- NOTE | 2021-06-14 21:51 | P.CNID_ITS ---
History of Present Illness Data of Consult Service Date: 06/14/21 Requesting physician: Johnna Hill Primary Care Provider: Unknown Physician HPI Reason for consult: bacteremia He presents with right arm swelling and discomfort with purulence last over last day He was seen and had right antecubital area drained and received care 06/04-06/08 He has right arm redness. Review of Systems Review of Systems: Yes all other systems are reviewed and are negative PMFSH Past Medical History Medical History (Updated 06/14/21 @ 21:55 by Tiki Marsh MD) Alcohol abuse Bacteremia Polysubstance abuse Tobacco use disorder Family History Family history: reviewed and not pertinent Surgical History Surgical History No pertinent past surgical history Social History Social History Household Members: Other Housing: Homeless Do you presently have visiting nurse or other home services: No Alcohol intake: current Alcohol intake frequency: 3 or more drinks per day Patient Tobacco Use Status: Current everyday Tobacco user Tobacco use type: Cigarette Cigarette Packs Per Day: 0.5 Cigarettes Per Day: 10.0 Substance Use Type: Crack/Cocaine and Heroin service: No Current occupational status: unemployed Meds Allergies Allergy/AdvReac Type Severity Reaction Status Date / Time naltrexone [NALTREXONE] Allergy Unknown HIVES Verified 06/13/21 07:54 Active Medications: Current Medications Acetaminophen (Acetaminophen 325 Mg Tablet) 650 mg PO Q6H PRN PRN Reason: Pain, Mild (Pain Scale 1-3) Bisacodyl (Bisacodyl 5 Mg Tablet.Dr) 10 mg PO BEDTIME PRN PRN Reason: Constipation Last Admin: 06/13/21 21:24 Dose: 10 mg Documented by: Heparin Sodium (Porcine) (Heparin Sodium,Porcine 5,000 Unit/Ml Vial) 5,000 unit SUBCUT Q12H [facility] Last Admin: 06/14/21 10:34 Dose: 5,000 unit Documented by: Sodium Chloride (Ns) 1,000 mls @ 125 mls/hr IVCONT .Q8H [facility] Last Admin: 06/14/21 14:28 Dose: 125 mls/hr Documented by: Vancomycin HCl 1,000 mg/ (Sodium Chloride) 270 mls @ 270 mls/hr IV Q12H [facility] Last Infusion: 06/14/21 11:50 Dose: Infused Documented by: Lorazepam (Lorazepam 1 Mg Tablet) 1 mg PO Q4H PRN PRN Reason: anxiety Last Admin: 06/14/21 19:31 Dose: 1 mg Documented by: Methadone HCl (Methadone Hcl 20 Mg/2 Ml Oral.Conc) 50 mg PO ONCE ONE Stop: 06/15/21 08:01 Morphine Sulfate (Morphine Sulfate 2 Mg/Ml Cartridge) 2 mg IVPUSH Q4H PRN; Protocol PRN Reason: Pain, Mild (Pain Scale 1-3) Last Admin: 06/14/21 17:49 Dose: 2 mg Documented by: Ondansetron HCl (Ondansetron Hcl 4 Mg/2 Ml Vial) 4 mg IVPUSH Q6H PRN PRN Reason: Nausea Oxycodone HCl (Oxycodone Hcl Immed Release 15 Mg Tablet) 15 mg PO Q4H PRN PRN Reason: withdrawal Last Admin: 06/14/21 10:33 Dose: 15 mg Documented by: Pharmacy Consult (Consult Rx Perform Med Rec) 1 each MISCELLANE ONCE PRN PRN Reason: Consult order Pharmacy Consult (Consult Rx Vancomycin Dosing) 1 each MISCELLANE DAILY PRN PRN Reason: Consult order Sodium Chloride (0.9 % Sodium Chloride Flush 3 Ml Syringe) 3 ml IVFLUSH QSHIFT [facility] Last Admin: 06/14/21 17:42 Dose: Not Given Documented by: Home Medications Medication Instructions Recorded Confirmed Last Taken Type No Known Home Meds 06/13/21 06/13/21 Unknown History Physical Exam Vital Signs: Vital Signs: Last Vital Signs Temp 98.1 F 06/14/21 16:00 Pulse 80 06/14/21 16:00 Resp 18 06/14/21 16:00 BP 154/98 H 06/14/21 16:00 Pulse Ox 98 06/14/21 16:00 BMI result Body Mass Index 30.9 Const: General: cooperative HENMT: Head: Yes normal to inspection Mouth: Normal oral and palatal mucosa present Resp: Effort & Inspection: normal respiratory effort Cardio: Rate: regular rate Rhythm: regular rhythm GI: Palpation (GI): Soft to palpation and nontender Extrem: Other: redness and swelling right arm ,area incised and used by patient for IVDU mild redness Results Labs CBC & Chem 7: 06/14/21 08:02 06/14/21 08:02 Labs: Short CBC 06/14/21 Range/Units 08:02 WBC 6.5 (4.8-10.8) X10*3/uL Hgb 11.6 L (14.0-18.0) g/dl Hct 34.5 L (42.0-52.0) % Plt Count 292 (160-400) X10*3/uL BMP 06/13/21 06/14/21 06/14/21 19:23 08:02 08:02 Sodium 141 Potassium 4.2 Chloride 107 Carbon Dioxide 25 BUN 9 Creatinine 1.14 1.16 Cancelled Calcium 8.8 D Microbiology Microbiology Results: Microbiology 06/13/21 09:09 Blood - Venous Blood Culture - Preliminary Prelim: GPC Gram Stain only 06/13/21 09:09 Blood - Venous Blood Culture - Preliminary No growth after 24 hours. Assessment and Plan (1) Abscess of right upper arm and forearm: Status: Acute (2) Opioid use disorder: Status: Acute (3) Bacteremia: Status: Acute He has probable MRSA bacteremia. He is tolerating Vancomycin He has no new purulence now. Plan Contine Vancomycin Likely need IV for four weeks CHeck echo if not done
[2021-06-14 23:54] VITALS: BP 165/70; PULSE 80; RESP 18; TEMP 36.4; O2SAT 98
[2021-06-15] MEDS: 0.9 % Sodium Chloride 1,000 ML 125 ML IVCONT ×2 (05:31→14:09)
--- NOTE | 2021-06-15 07:20 | P.PNOP_ITS ---
Subjective Subjective Date of Service: 06/15/21 Interval history: The patient was underwent an I and D of a right antecubital fossa abscess, as well as an abscess in the anterolateral aspect of the biceps muscle belly on 06/04/[address] Johnston evaluated the patient yesterday and determined that the patient was improving on IV abx. This morning the patient is resting comfortably in bed. No overnight events. Pain is well managed. He reports that he continues to feel better. Physical Exam Vital Signs: Vital Signs: Last Vital Signs Temp 97.6 F 06/14/21 23:54 Pulse 80 06/14/21 23:54 Resp 18 06/14/21 23:54 BP 165/70 H 06/14/21 23:54 Pulse Ox 98 06/14/21 23:54 BMI result Body Mass Index 30.9 Const: General: cooperative, healthy appearing and no acute distress Resp: Effort & Inspection: normal respiratory effort and able to speak in complete sentences Cardio: Rate: regular rate Peripheral pulses: Peripheral pulses 2+ throughout GI: Palpation (GI): Soft to palpation Skin: Lesions: no lesions Rashes: no rashes Extrem: Other: Incision sites has improving erythema aroung the surrounding skin. There is no drainage. Sutures intact. Patient is able to demonstrate full elbow, hand, and wrist ROM with no difficulties. Sensation intact. Radial pulse intact. Procedures Date of Service Date of Service: 06/15/21 Progress Note: A&P Assessment and plan (1) Abscess of right upper arm and forearm: Status: Acute Assessment and Plan: Resolving cellulitis at the 2 incision sites on the right forearm s/p I and D of a right antecubital fossa abscess and of an abscess in the anterolateral aspect of the right bicep muscle belly on 06/04/21. Sutures removed at bedside per Dr. Johnston request. IV and oral abx per medicine. The patient will followup with orthopedics PRN, sooner if neeed. (2) Polysubstance abuse: Status: Acute (3) Cellulitis: Status: Acute (4) Bacteremia: Status: Acute (5) Opioid use disorder: Status: Acute (6) Tobacco use disorder: Status: Acute (7) Alcohol abuse: Status: Acute Fall Risk Details Current Medications: Current Medications Acetaminophen (Acetaminophen 325 Mg Tablet) 650 mg PO Q6H PRN PRN Reason: Pain, Mild (Pain Scale 1-3) Bisacodyl (Bisacodyl 5 Mg Tablet.Dr) 10 mg PO BEDTIME PRN PRN Reason: Constipation Last Admin: 06/13/21 21:24 Dose: 10 mg Documented by: Heparin Sodium (Porcine) (Heparin Sodium,Porcine 5,000 Unit/Ml Vial) 5,000 unit SUBCUT Q12H [facility] Last Admin: 06/14/21 23:06 Dose: 5,000 unit Documented by: Sodium Chloride (Ns) 1,000 mls @ 125 mls/hr IVCONT .Q8H [facility] Last Admin: 06/15/21 05:31 Dose: 125 mls/hr Documented by: Vancomycin HCl 1,000 mg/ (Sodium Chloride) 270 mls @ 270 mls/hr IV Q12H [facility] Last Infusion: 06/15/21 00:14 Dose: Infused Documented by: Lorazepam (Lorazepam 1 Mg Tablet) 1 mg PO Q4H PRN PRN Reason: anxiety Last Admin: 06/14/21 19:31 Dose: 1 mg Documented by: Methadone HCl (Methadone Hcl 20 Mg/2 Ml Oral.Conc) 50 mg PO ONCE ONE Stop: 06/15/21 08:01 Morphine Sulfate (Morphine Sulfate 2 Mg/Ml Cartridge) 2 mg IVPUSH Q4H PRN; Protocol PRN Reason: Pain, Mild (Pain Scale 1-3) Last Admin: 06/14/21 17:49 Dose: 2 mg Documented by: Ondansetron HCl (Ondansetron Hcl 4 Mg/2 Ml Vial) 4 mg IVPUSH Q6H PRN PRN Reason: Nausea Oxycodone HCl (Oxycodone Hcl Immed Release 15 Mg Tablet) 15 mg PO Q4H PRN PRN Reason: withdrawal Last Admin: 06/14/21 10:33 Dose: 15 mg Documented by: Pharmacy Consult (Consult Rx Perform Med Rec) 1 each MISCELLANE ONCE PRN PRN Reason: Consult order Pharmacy Consult (Consult Rx Vancomycin Dosing) 1 each MISCELLANE DAILY PRN PRN Reason: Consult order Sodium Chloride (0.9 % Sodium Chloride Flush 3 Ml Syringe) 3 ml IVFLUSH QSHIFT [facility] Last Admin: 06/14/21 23:08 Dose: Not Given Documented by: Time Spent With Patient Time: Total time spent is greater than 50% in coordination of care (as documented) at patient's floor/unit and/or counseling patient: Time with patient: less than 15 minutes Quality Stroke Does the patient have a stroke diagnosis?: No VTE Prior VTE?: No VTE Risk Level:: Medical - moderate - high VTE Device Contraindication: Treatment Not Indicated VTE Drug Contraindication: N/A - Med Ordered
[2021-06-15 07:59] VITALS: BP 137/83; PULSE 80; RESP 18; TEMP 36.6; O2SAT 98
[2021-06-15 08:15] LABS: Creatinine Clr Calc Pharmacy 147.2; Estimated Glomerular Filt Rate > 60
[2021-06-15 08:44] LABS: Vancomycin Trough 15.6 mcg/mL (10.0-20.0)
[2021-06-15] MEDS: methADONE HCl 20 MG/2 ML ORAL.CONC 50 MG PO (09:04)
[2021-06-15] MEDS: vancomycin HCL 1,000 MG in 0.9 % Sodium Chloride 250 ML 270 MG IV (09:04)
--- NOTE | 2021-06-15 09:06 | HO.PM.IMPN ---
Subjective Subjective Date of Service: 06/15/21 Review of Systems Pain improved to right arm Denies nausea, vomiting, diarrhea All other systems reviewed and are negative Physical Exam Vital Signs: Vital Signs: Last Vital Signs Temp 97.9 F 06/15/21 07:59 Pulse 80 06/15/21 07:59 Resp 18 06/15/21 07:59 BP 137/83 06/15/21 07:59 Pulse Ox 98 06/15/21 07:59 BMI result Body Mass Index 30.9 Appearing in no acute distress lung sounds are clear to auscultation heart regular rate rhythm, clear S1, S2 positive bowel sounds, abdomen is soft, nontender neuro patient is alert x3, no focal deficits ?Right upper arm s/p abscess drain removal, sutures in place ?some mild erythema noted, no drainage? Objective Data Active Medications Acetaminophen (Acetaminophen 325 Mg Tablet) 650 mg PO Q6H PRN PRN Reason: Pain, Mild (Pain Scale 1-3) Bisacodyl (Bisacodyl 5 Mg Tablet.Dr) 10 mg PO BEDTIME PRN PRN Reason: Constipation Last Admin: 06/13/21 21:24 Dose: 10 mg Documented by: RANDAL Heparin Sodium (Porcine) (Heparin Sodium,Porcine 5,000 Unit/Ml Vial) 5,000 unit SUBCUT Q12H [facility] Last Admin: 06/14/21 23:06 Dose: 5,000 unit Documented by: JODI Sodium Chloride (Ns) 1,000 mls @ 125 mls/hr IVCONT .Q8H [facility] Last Admin: 06/15/21 05:31 Dose: 125 mls/hr Documented by: ELAN Vancomycin HCl 1,000 mg/ (Sodium Chloride) 270 mls @ 270 mls/hr IV Q12H [facility] Last Admin: 06/15/21 09:04 Dose: 270 mls/hr Documented by: PIERCE Lorazepam (Lorazepam 1 Mg Tablet) 1 mg PO Q4H PRN PRN Reason: anxiety Last Admin: 06/14/21 19:31 Dose: 1 mg Documented by: JODI Morphine Sulfate (Morphine Sulfate 2 Mg/Ml Cartridge) 2 mg IVPUSH Q4H PRN; Protocol PRN Reason: Pain, Mild (Pain Scale 1-3) Last Admin: 06/14/21 17:49 Dose: 2 mg Documented by: JODI Ondansetron HCl (Ondansetron Hcl 4 Mg/2 Ml Vial) 4 mg IVPUSH Q6H PRN PRN Reason: Nausea Oxycodone HCl (Oxycodone Hcl Immed Release 15 Mg Tablet) 15 mg PO Q4H PRN PRN Reason: withdrawal Last Admin: 06/14/21 10:33 Dose: 15 mg Documented by: PIO Pharmacy Consult (Consult Rx Perform Med Rec) 1 each MISCELLANE ONCE PRN PRN Reason: Consult order Pharmacy Consult (Consult Rx Vancomycin Dosing) 1 each MISCELLANE DAILY PRN PRN Reason: Consult order Sodium Chloride (0.9 % Sodium Chloride Flush 3 Ml Syringe) 3 ml IVFLUSH QSHIFT [facility] Last Admin: 06/15/21 09:05 Dose: Not Given Documented by: PIERCE Non-Admin Reason: IV Running Labs CBC & Chem 7: 06/14/21 08:02 06/15/21 07:40 Labs: Laboratory Results - last 24 hr 06/14/21 06/15/21 06/15/21 08:01 07:40 07:40 Estim Creat Clear Calc 147.2 Estimated GFR > 60 Vancomycin Trough 15.6 Random Vancomycin 7.3 L Microbiology Microbiology Results: Microbiology 06/13/21 09:09 Blood Culture - Final Blood - Venous Coag negative Staphylococcus 06/13/21 09:09 Blood Culture - Preliminary Blood - Venous No growth after 24 hours. Assessment and Plan (1) Cellulitis: Status: Acute Plan 25 year old man admitted with cellulitis to right anterior humerus. He was admitted on 06/03 and left AMA on 06/05. The abscess was drained at that time but patient did not complete treatment and he left with oral antibiotics. Patient likely requires 2 midnights in the hospital due to treatment for abscess including IV antibiotics. Cellulitis. No sepsis. Right arm, s/p abscess drain Humeral CT neg for new abscess formation Vancomycin ID following wound care pain management Seen by orthopedic surgery agree with IV abx Blood cx so far coag neg staph, wait for final results KEVIN. Resolved Likely from hypovolemia IV fluids Substance abuse IV heroine and cocaine addiction consult, started on Methadone Oxycodone and ativan for withdrawal symptoms. DVT prophylaxis with heparin attending Dr. Mcdonald Full code Patient requires continued hospitalization due to Cellulitis requiring IV vancomycin, pending blood cultures. Quality Stroke Does the patient have a stroke diagnosis?: No VTE Prior VTE?: No VTE Risk Level:: Medical - moderate - high VTE Device Contraindication: Treatment Not Indicated VTE Drug Contraindication: N/A - Med Ordered
[2021-06-15] MEDS: Morphine Sulfate 2 MG/ML CARTRIDGE IVPUSH (09:23)
[2021-06-15] MEDS: Heparin Sodium,Porcine 5,000 UNIT/ML VIAL 5000 UNIT SUBCUT (11:13)
--- NOTE | 2021-06-15 12:30 | CA_ITS ---
Transthoracic Echocardiogram Patient (Last, First, Middle): Arsenio Miranda Wesley Gender: Male Date of : 1995 Age: 25 Procedure Date: 06/15/2021 Procedure Type: Transthoracic Echocardiogram Location: S3E Height: 187.96 cm Weight: 108.86 kg BSA: 2.35 m2 Heart Rate: bpm BP: 165 / 70 mmHg Lapidarist: MARLEEN Referring MD: Johnna Hill NP Sound Engineer: Oliver Owens MD Symptoms: ? vegetation , GPC in blood cx Study Quality: Fair ECG Rhythm: Sinus Conclusions: - 1. Normal biventricular systolic and normal LV diastolic function 2. Normal cardiac valvular Doppler 3. No clear vegetations seen on this study 4. No gross pericardial effusion Findings Left Ventricle Normal left ventricular size, thickness, and systolic function. The visually estimated ejection fraction is between 60-65%. Spectral Doppler is indicative of a normal filling pattern. Right Ventricle Normal right ventricular cavity size and systolic function. Atria Both atria are normal in size. Interatrial shunt cannot be excluded. Aortic Valve Normal aortic valve structure and function. There is no aortic valve stenosis. There is no aortic valve regurgitation. Mitral Valve Normal mitral valve structure and function. There is trace mitral valve regurgitation. There is no mitral valve stenosis. Pulmonic Valve The pulmonic valve was not well visualized. There is trace pulmonic valve regurgitation. Tricuspid Valve The tricuspid valve was not well visualized. There is trace tricuspid valve regurgitation. Tricuspid regurgitation envelope is inadequate for calculation of right ventricular systolic pressure. Great Vessels All visible segments of the aorta are normal in size. The pulmonary artery was not well visualized. Venous The inferior vena cava is normal in size and collapses greater than 50% with inspiration. Pericardium/Pleural There is no evidence of pericardial effusion. Prior Study Comparison No prior study available for comparison. Recommendations, Care & Conclusions Consider a DOREEN if clinically appropriate. Measurements 2D Linear Measurements Ao Root: 3.30 2.1-3.5 cm LVOT Diam: 2.40 3.0+(-)1.3 cm Mitral Valve MV Pk E: 1.06 MV PK A: 0.55 MV Decel Time: 164.00 E/A: 1.90 E'Lateral: 14.40 E'Medial: 7.40 E/E' Med: 14.30 E/E' Lat: 7.40 PHT: 48.00 MVA PHT: 4.58 Decel [place]: 6.49 Aortic Valve AoV Pk Nicola: 1.39 AoV Mn Nicola: 0.92 AoV VTI: 0.28 AoV Pk Grad: 8.00 Aov Mn Grad: 4.00 SYDNI Cont.VTI: 4.05 LVOT LVOT Pk Nicola: 1.23 LVOT Mn Nicola: 0.79 LVOT VTI: 0.25 LVOT Pk Grad: 6.00 LVOT Mn Grad: 3.00 LVOT Diam: 2.40 LVOT Area: 4.52 Diastolic Function MV Pk E: 1.06 MV Pk A: 0.55 E/A: 1.90 E'Medial: 7.40 E/E' Med: 14.30 E' Laterial: 14.40 E/E' Lat: 7.40 Right Ventricle TAPSE (mm): 21.90 TVS' Nicola: 15.70 Great Vessels Aorta Ao Root-2D: 3.30 2.0-3.7 cm Ao Asc: 3.20 2.1-3.4 cm Pulmonary Valve PV Pk Nicola: 0.98 Peak PV Grad: 4.00 Updated in Other Vendor System with Status of Final Oliver Owens MD electronically signed on 06/15/2021 5:09:13 PM with status of Final
[2021-06-15 15:40] VITALS: BP 158/80; PULSE 75; RESP 18; TEMP 36.8; O2SAT 100
--- NOTE | 2021-06-15 15:58 | MHC.RECOVRN ---
Broad search for [facility]/T[facility] bed availability completed. Pt was scheduled for an interview with [facility] at 1PM, however, facility needed to reschedule. No bed availability today regardless. T/w spoke with Osman at [facility] ([phone]), there is bed availability, waiting for nursing to review case. Spoke with Yudelka at [facility] ([phone]), there is a bed available, however, pt needs OTP secured. Currently waiting to speak with director of [facility] in [place] to discuss patients acceptance to that OTP. T/w will f/u with Yudelka in the morning with more information. Will continue to follow.
--- NOTE | 2021-06-15 16:08 | HO.ADDICTPRO ---
Subjective Subjective Date of Service: 06/15/21 Reason For Visit: HUMERAL ABSCESS Interim History: Patient seen briefly in follow up Not feeling well and trying to sleep Still has not eaten secondary to nausea Methadone 50mg today RSRN working on CSS placement; unclear when discharge will be Review of Systems Medical Review of Systems: unchanged Mental Status Exam Mental Status Exam Patient Appearance: Appropriate Patient Orientation: Person, Place, Time and Situation Patient Behavior: Appropriate Mood Description: Calm Affect Description: Calm Judgement: Good Diagnostics Vital Signs (24Hr): Vital Signs - 24 hr 06/14/21 23:54 06/15/21 07:59 06/15/21 15:40 Temperature 97.6 F 97.9 F 98.2 F Pulse Rate 80 80 75 Respiratory Rate 18 18 18 Blood Pressure 165/70 H 137/83 158/80 H Pulse Oximetry 98 98 100 BMI result Body Mass Index 30.9 Labs Results: 06/14/21 08:02 06/15/21 07:40 Labs: Laboratory Results - last 48 hr 06/13/21 06/13/21 06/13/21 19:23 19:23 19:45 WBC RBC Hgb Hct MCV MCH MCHC RDW Plt Count MPV Immature Gran % (Auto) Neut % (Auto) Lymph % (Auto) [place] % (Auto) Eos % (Auto) Baso % (Auto) Lymph # (Auto) [place] # (Auto) Eos # (Auto) Baso # (Auto) Abs Immat Gran (auto) Absolute Neuts (auto) Absolute Nucleated RBC Nucleated RBC % (auto) Sodium Potassium Chloride Carbon Dioxide Anion Gap BUN Creatinine 1.14 Estim Creat Clear Calc 129.1 Estimated GFR > 60 Random Glucose Calcium Magnesium Vancomycin Trough 18.0 Random Vancomycin Urine Opiates Screen POSITIVE H Urine Fentanyl Screen POSITIVE H Ur Barbiturates Screen POSITIVE H Ur Phencyclidine Scrn Not Detected Ur Amphetamines Screen Not Detected U Benzodiazepines Scrn Not Detected Urine Cocaine Screen POSITIVE H U Marijuana (THC) Screen Not Detected 06/14/21 06/14/21 06/14/21 08:01 08:02 08:02 WBC 6.5 RBC 4.08 L Hgb 11.6 L Hct 34.5 L MCV 84.6 MCH 28.4 MCHC 33.6 RDW 12.6 Plt Count 292 MPV 9.7 Immature Gran % (Auto) 0.6 H Neut % (Auto) 46.1 Lymph % (Auto) 43.5 H [place] % (Auto) 6.7 Eos % (Auto) 2.6 Baso % (Auto) 0.5 Lymph # (Auto) 2.8 [place] # (Auto) 0.4 Eos # (Auto) 0.2 Baso # (Auto) 0.0 Abs Immat Gran (auto) 0.04 H Absolute Neuts (auto) 3.0 Absolute Nucleated RBC 0.000 Nucleated RBC % (auto) 0.0 Sodium 141 Potassium 4.2 Chloride 107 Carbon Dioxide 25 Anion Gap 13 BUN 9 Creatinine 1.16 Estim Creat Clear Calc 126.9 Estimated GFR > 60 Random Glucose 80 D Calcium 8.8 D Magnesium 1.9 Vancomycin Trough Random Vancomycin 7.3 L Urine Opiates Screen Urine Fentanyl Screen Ur Barbiturates Screen Ur Phencyclidine Scrn Ur Amphetamines Screen U Benzodiazepines Scrn Urine Cocaine Screen U Marijuana (THC) Screen 06/14/21 06/15/21 06/15/21 08:02 07:40 07:40 WBC RBC Hgb Hct MCV MCH MCHC RDW Plt Count MPV Immature Gran % (Auto) Neut % (Auto) Lymph % (Auto) [place] % (Auto) Eos % (Auto) Baso % (Auto) Lymph # (Auto) [place] # (Auto) Eos # (Auto) Baso # (Auto) Abs Immat Gran (auto) Absolute Neuts (auto) Absolute Nucleated RBC Nucleated RBC % (auto) Sodium Potassium Chloride Carbon Dioxide Anion Gap BUN Creatinine Cancelled 1.00 Estim Creat Clear Calc Cancelled 147.2 Estimated GFR Cancelled > 60 Random Glucose Calcium Magnesium Cancelled Vancomycin Trough 15.6 Random Vancomycin Urine Opiates Screen Urine Fentanyl Screen Ur Barbiturates Screen Ur Phencyclidine Scrn Ur Amphetamines Screen U Benzodiazepines Scrn Urine Cocaine Screen U Marijuana (THC) Screen Imaging Radiology Impressions: ITS Impressions Humerus CT 06/13/21 10:32 IMPRESSION: Areas of anterior subcutaneous soft tissue stranding along the ventral aspect of the distal upper arm likely representing a combination of postsurgical change and previously seen cellulitis. No persistent subcutaneous or intramuscular fluid collection/abscess. No acute osseous abnormality. Medications Medications Current Medications Acetaminophen (Acetaminophen 325 Mg Tablet) 650 mg PO Q6H PRN PRN Reason: Pain, Mild (Pain Scale 1-3) Bisacodyl (Bisacodyl 5 Mg Tablet.Dr) 10 mg PO BEDTIME PRN PRN Reason: Constipation Last Admin: 06/13/21 21:24 Dose: 10 mg Documented by: Heparin Sodium (Porcine) (Heparin Sodium,Porcine 5,000 Unit/Ml Vial) 5,000 unit SUBCUT Q12H [facility] Last Admin: 06/15/21 11:13 Dose: 5,000 unit Documented by: Sodium Chloride (Ns) 1,000 mls @ 125 mls/hr IVCONT .Q8H [facility] Last Admin: 06/15/21 14:09 Dose: 125 mls/hr Documented by: Vancomycin HCl 1,000 mg/ (Sodium Chloride) 270 mls @ 270 mls/hr IV Q12H [facility] Last Infusion: 06/15/21 10:31 Dose: Infused Documented by: Lorazepam (Lorazepam 1 Mg Tablet) 1 mg PO Q4H PRN PRN Reason: anxiety Last Admin: 06/14/21 19:31 Dose: 1 mg Documented by: Morphine Sulfate (Morphine Sulfate 2 Mg/Ml Cartridge) 2 mg IVPUSH Q4H PRN; Protocol PRN Reason: Pain, Mild (Pain Scale 1-3) Last Admin: 06/15/21 09:23 Dose: 2 mg Documented by: Ondansetron HCl (Ondansetron Hcl 4 Mg/2 Ml Vial) 4 mg IVPUSH Q6H PRN PRN Reason: Nausea Oxycodone HCl (Oxycodone Hcl Immed Release 15 Mg Tablet) 15 mg PO Q4H PRN PRN Reason: withdrawal Last Admin: 06/14/21 10:33 Dose: 15 mg Documented by: Pharmacy Consult (Consult Rx Perform Med Rec) 1 each MISCELLANE ONCE PRN PRN Reason: Consult order Pharmacy Consult (Consult Rx Vancomycin Dosing) 1 each MISCELLANE DAILY PRN PRN Reason: Consult order Sodium Chloride (0.9 % Sodium Chloride Flush 3 Ml Syringe) 3 ml IVFLUSH QSHIFT [facility] Last Admin: 06/15/21 09:05 Dose: Not Given Documented by: Allergies Allergies Allergy/AdvReac Type Severity Reaction Status Date / Time naltrexone [NALTREXONE] Allergy Unknown HIVES Verified 06/13/21 07:54 Assessment & Plan Assessment & Plan (1) Opioid use disorder: Status: Acute Code(s): F11.90 - Opioid use, unspecified, uncomplicated Assessment and Plan: methadone increased to 60mg tomorrow plan for CSS admission following discharge I spent ___15___ minutes with the patient and/or on the patient floor today, greater than?50% of which was spent counseling/coordinating care.
[2021-06-15] MEDS: LORazepam 1 MG TABLET PO (17:06)
[2021-06-15] MEDS: oxyCODONE HCl Immed Release 15 MG TABLET PO (17:08)
--- NOTE | 2021-06-15 18:25 | PM.EVENT ---
Event Note Date of Service: 06/15/21 Event Note: Patient complaining of withdrawal symptoms feeling hot and cold, unable to stay still, feels nauseous, shaky receive IV Ativan 1 mg oxycodone and 50 mg of methadone this morning, offered hydroxyzine but patient says it did not help him in the past, he is requesting for higher dose of methadone since previously he was on 120 mg of methadone Patient noted to be restless shaky Lungs clear to auscultation Neuro awake alert speech Will give additional methadone 20 mg, further does titration as per addiction team.
[2021-06-15] MEDS: methADONE HCl 20 MG/2 ML ORAL.CONC PO (18:30)
--- NOTE | 2021-06-15 18:41 | PC.NURSE ---
Dr Rodríguez in to see pt regarding ativan and oxycodone not helping pt. Additional dose of methadone ordered and given to pt
--- NOTE | 2021-06-15 19:49 | PC.NURSE ---
at 1945 pt states he cant wait and he has to go home didn't offer any detils md was notified DR Louise came to speak with pt but he was already in door way signed ama form and took abx script from dr Louise with him he was explained importance of taking medications iv device was taking out andhe walked away very fast to exit.
--- NOTE | 2021-06-15 21:05 | PM.EVENT ---
Event Note Date of Service: 06/15/21 Event Note: Pt wants to leave AMA. He feels anxious and very sick withdrawing,. I offered iv opioids vs giving him another methadone dose as well as anxiolytic but pt refused. discussed the risk of leaving AMA before we have final culture results. Pt understands the risk of incomplete treatment of his bacteremia, including sepsis and in worst case scenario. He was given a 14 day script for doxy. pt states he will fill the script tonight
== END 2021-06-15 19:50 | disposition left against medical advice (07) | DRG 721 ==
LOC: HO.ED 11:34 → HO.EDOVER 11:59 → HO.S3 17:26
PROVIDERS: Physician Assistant; Admitting Provider Nurse Practitioner Acute Care; Emergency Provider Emergency Medicine; Visit Provider Nurse Practitioner Acute Care
DX: T81.41XA Infection following a procedure, superficial incisional surgical site, initial encounter (principal); N17.9 Acute kidney failure, unspecified; R78.81 Bacteremia; F14.10 Cocaine abuse, uncomplicated; F11.23 Opioid dependence with withdrawal; F10.20 Alcohol dependence, uncomplicated; L03.113 Cellulitis of right upper limb; E86.1 Hypovolemia; F17.210 Nicotine dependence, cigarettes, uncomplicated; Z71.6 Tobacco abuse counseling; Z59.02 Unsheltered homelessness; Z20.822 Contact with and (suspected) exposure to COVID-19; Z86.14 Personal history of Methicillin resistant Staphylococcus aureus infection
CPT/HCPCS: 36415; 73201; 80048; 80076; 80202; 80307; 82565; 83605; 83735; 85025; 85652; 86140; 87040; 87147; 87205; 87635; 93005; 93306; 96361; 96365; 96375; 99284; 99285; J1885; J2270; J3370; Q9967

== ENCOUNTER 2021-06-24 18:38 | Emergency (ER) | payer MEDICAID, SELFPAY ==
--- NOTE | 2021-06-24 | ECG_ITS ---
Test Reason : SEPSIS Blood Pressure : / mmHG Vent. Rate : 121 BPM Atrial Rate : 121 BPM P-R Int : 158 ms QRS Dur : 104 ms QT Int : 324 ms P-R-T Axes : 056 009 044 degrees QTc Int : 460 ms Sinus tachycardia Possible Left atrial enlargement Incomplete right bundle branch block Borderline ECG When compared with ECG of 13-JUN-2021 08:38, No significant change was found Referred By: Generic ED Physician Electronically Signed By:SWETA CARRERA
[2021-06-24 19:07] VITALS: BP 157/108; PULSE 134; TEMP 37.1; BMI 29.7
--- NOTE | 2021-06-24 19:41 | ED.WOUNDLAC ---
HPI - Wound/Laceration General Chief Complaint: Wound/Laceration Stated Complaint: post abscess 1wk ago, pos infection in areas Time Seen by Provider: 06/24/21 19:40 Source: patient Mode of arrival: ambulatory Limitations: no limitations History of Present Illness HPI narrative: This is a 25-year-old male past medical history significant for IVDA s/p/p I&D right antecubital space for abscess on 06/04 and drain removal on 06/08 presenting to the emergency department with concerns of having an infection to his right upper extremity and a new infection on his left upper extermity X2 weeks. Patient tells me that he recently had an incision and drainage procedure done on the right upper extremity, and he was recently admitted here for antibiotics he tells me he left ama, on po antibiotics which he didnt take. He tells me he thinks the infection is back and he thinks he has a new one to his left upper etremity. He also reports that he has still been injecting to bilateral upper extremities He reports injecting heroin and cocaine. He denies fevers, numbness, tingling, chest pain, shortness of breath, weakness. He does however tell me that he has been having chills and he is diaphoretic. Onset (ago): week(s) (w) Place: home Patient tetanus UTD: Yes Associated symptoms: pain Related Data Previous Rx's Medication Instructions Recorded doxycycline hyclate 100 mg tablet 100 mg PO BID 14 Days #28 tab 06/15/21 doxycycline hyclate 100 mg capsule 100 mg PO BID 10 Days #20 cap 06/24/21 Allergies Allergy/AdvReac Type Severity Reaction Status Date / Time naltrexone [NALTREXONE] Allergy Unknown HIVES Verified 06/24/21 19:07 Review of Systems Review of Systems: Constitutional : No Weight loss, No Fever, No Chills, No Fatigue, No Malaise ENT/Mouth : No sore throat, No Rhinorrhea Eyes: No Eye Pain, No Swelling, No Redness Cardiovascular : No Chest Pain, No SOB, No Dyspnea on Exertion, No Orthopnea, No Edema, No Palpitations Respiratory : No Cough, No Sputum, No Wheezing Gastrointestinal : No Nausea, No Vomiting, No Diarrhea, No Constipation, No abdominal Pain, No Hematochezia, No Melena Genitourinary : No Dysuria, No Urinary Frequency, No Hematuria, Musculoskeletal : No joint pain, No Myalgias, No Joint Swelling Skin : + Skin Lesions, No rash, + abscess Neuro : No Weakness, No Numbness, No Dizziness, No Headache Psych : No Anxiety/Panic, No Depression All other systems reviewed and are negative Yes all other systems are reviewed and are negative [facility] Past Medical History Attestation statement: The following information was validated with the patient. Source: old records reviewed and nursing notes reviewed Medical History (Updated 06/24/21 @ 23:07 by DEMETRI Casarez) Alcohol abuse Bacteremia Polysubstance abuse Tobacco use disorder Surgical History No pertinent past surgical history Social History Social History Household Members: Other Housing: Homeless Do you presently have visiting nurse or other home services: No Alcohol intake: current Alcohol intake frequency: 3 or more drinks per day Patient Tobacco Use Status: Current everyday Tobacco user Tobacco use type: Cigarette Cigarette Packs Per Day: 0.5 Cigarettes Per Day: 10.0 Substance Use Type: Crack/Cocaine and Heroin Advance Directives: No Advance Directives Information Provided: No service: No Current occupational status: unemployed Physical Exam Vital Signs: Vital Signs: Last Vital Signs Temp 98.7 F 06/24/21 19:07 Pulse 116 H 06/24/21 21:39 Resp 16 06/24/21 21:39 BP 130/111 H 06/24/21 21:39 Pulse Ox 97 06/24/21 21:39 BMI result Body Mass Index 29.7 Patient hypertensive tachycardic. Afebrile Appearance: Alert.? Oriented X3.? No acute distress.? Head: Normocephalic, atraumatic, no step-offs or deformities Eyes: Pupils equal, round and reactive to light.? ENT: Pharynx normal.? Neck: Normal inspection.? Neck supple.? CVS: Normal heart rate and rhythm.? Pulses normal.? Respiratory: No respiratory distress.? Breath sounds normal.? Abdomen: Soft and nontender.? Skin: Skin warm and dry.? Normal skin color.? Normal skin turgor.? Extremities: No lower extremity edema.? No calf ttp. 5/5 strength to bilateral upper and lower extremities + areas of erythema to bilateral upper extremities. With track winkler. Images attached. Back: No midline tenderness, no C-spine tenderness, full range of motion, no CVA tenderness bilaterally Neuro: Oriented X 3.? No motor deficit.? No sensory deficit. CN 2-12 intact Course Reevaluation(s) Reevaluation #1: CBC appears to be at patient's baseline. Chemistry is no acute electrolyte abnormalities. Lactic acid is normal. COVID negative. Time: 20:20 Reevaluation #2: Patient's blood pressure is significantly elevated, not complaining of chest pain, no headache or vision changes. Normal sinus rhythm on the site monitor. This is likely secondary to drug abuse. WIll continue to monitor Patient tells me that he is seeking detox. At this time I will start patient on antibiotics. Administer his 1st dose here. I will place him in physician observation until evaluated by the care team and by substance abuse counselors. At time observation was started patient, cooperative no acute distress. Vital signs stable. 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 Patient wants to stay and speak to the care team he tells me he is depressed, anxious and his life sucks. He denies SI and HI. Time: 23:05 MDM - Wound/Laceration MDM Narrative Medical decision making narrative: 1940 25 yo m pmhx ivda present w/ concerns for infection to b/l upper extermities. To note patient was recently in the hospital for abscess infection/drainage. He decided to leave against medical advice on p.o. doxycycline. Patient tells me he did not take doxycycline as he is homeless and he is unable to afford this. Physical examination significant for track winkler with overlying erythema, no fluctuance. There is 1 area in the left dorsal aspect of hand that appears to have some drainage and overlying warmth. Concerning for infection. Plan at this time is laboratory studies, blood cultures and a lactic. Medical Records Attestation: I reviewed the patient's medical records. Lab Data Attestation: I reviewed the patient's lab results. Result diagrams: 06/24/21 19:37 06/24/21 19:37 Labs: Lab Results 06/24/21 06/24/21 06/24/21 Range/Units 19:37 19:37 19:37 WBC 9.1 (4.8-10.8) X10*3/uL RBC 5.00 D (4.60-5.80) X10*6/uL Hgb 14.1 D (14.0-18.0) g/dl Hct 41.9 L D (42.0-52.0) % MCV 83.8 (80.0-98.0) fL MCH 28.2 (27.0-33.0) pg MCHC 33.7 (31.0-36.0) g/dl RDW 12.6 (11.0-16.0) % Plt Count 219 (160-400) X10*3/uL MPV 9.2 L (9.4-12.4) fL Immature Gran % (Auto) 0.1 (0.0-0.4) % Neut % (Auto) 70.7 (45-73) % Lymph % (Auto) 21.1 (20-40) % [place] % (Auto) 6.6 (2-11) % Eos % (Auto) 1.0 (0-4) % Baso % (Auto) 0.5 (0-2) % Lymph # (Auto) 1.9 (1.2-4.9) X10*3/uL [place] # (Auto) 0.6 (0.1-1.2) X10*3/uL Eos # (Auto) 0.1 (0.0-0.4) X10*3/uL Baso # (Auto) 0.1 (0.0-0.2) X10*3/uL Abs Immat Gran (auto) 0.01 (0.00-0.03) X10*3/uL Absolute Neuts (auto) 6.4 (2.0-8.3) x10*3/uL Absolute Nucleated RBC 0.000 (0.0-0.012) X10*3/uL Nucleated RBC % (auto) 0.0 (0.0-0.2) /100WBC PT 14.3 H (9.9-13.0) SEC INR 1.3 H (0.9-1.1) APTT 35.5 (24.1-38.0) SEC Sodium 139 (135-145) mmol/L Potassium 4.4 (3.3-5.1) mmol/L Chloride 102 (96-108) mmol/L Carbon Dioxide 28 (22-29) mmol/L Anion Gap 13 (12-20) BUN 15 D (9-16) mg/dL Creatinine 1.18 (0.5-1.4) mg/dL Estim Creat Clear Calc 122.6 Estimated GFR > 60 Random Glucose 93 (60-115) mg/dL Lactic Acid (0.5-2.0) mmol/L Calcium 10.1 D (8.4-10.2) mg/dL Total Bilirubin 0.3 (0.0-1.0) mg/dL Direct Bilirubin 0.2 (0.0-0.5) mg/dL AST 25 (5-37) U/L ALT 51 H (0-40) U/L Alkaline Phosphatase 122 H (39-117) U/L Total Protein 8.2 H (6.5-8.0) g/dL Albumin 4.5 (3.5-5.0) g/dL COVID-19 (DEREK) (Negative) COVID-19 Clin Com 06/24/21 06/24/21 Range/Units 19:37 19:58 WBC (4.8-10.8) X10*3/uL RBC (4.60-5.80) X10*6/uL Hgb (14.0-18.0) g/dl Hct (42.0-52.0) % MCV (80.0-98.0) fL MCH (27.0-33.0) pg MCHC (31.0-36.0) g/dl RDW (11.0-16.0) % Plt Count (160-400) X10*3/uL MPV (9.4-12.4) fL Immature Gran % (Auto) (0.0-0.4) % Neut % (Auto) (45-73) % Lymph % (Auto) (20-40) % [place] % (Auto) (2-11) % Eos % (Auto) (0-4) % Baso % (Auto) (0-2) % Lymph # (Auto) (1.2-4.9) X10*3/uL [place] # (Auto) (0.1-1.2) X10*3/uL Eos # (Auto) (0.0-0.4) X10*3/uL Baso # (Auto) (0.0-0.2) X10*3/uL Abs Immat Gran (auto) (0.00-0.03) X10*3/uL Absolute Neuts (auto) (2.0-8.3) x10*3/uL Absolute Nucleated RBC (0.0-0.012) X10*3/uL Nucleated RBC % (auto) (0.0-0.2) /100WBC PT (9.9-13.0) SEC INR (0.9-1.1) APTT (24.1-38.0) SEC Sodium (135-145) mmol/L Potassium (3.3-5.1) mmol/L Chloride (96-108) mmol/L Carbon Dioxide (22-29) mmol/L Anion Gap (12-20) BUN (9-16) mg/dL Creatinine (0.5-1.4) mg/dL Estim Creat Clear Calc Estimated GFR Random Glucose (60-115) mg/dL Lactic Acid 1.0 (0.5-2.0) mmol/L Calcium (8.4-10.2) mg/dL Total Bilirubin (0.0-1.0) mg/dL Direct Bilirubin (0.0-0.5) mg/dL AST (5-37) U/L ALT (0-40) U/L Alkaline Phosphatase (39-117) U/L Total Protein (6.5-8.0) g/dL Albumin (3.5-5.0) g/dL COVID-19 (DEREK) Negative (Negative) COVID-19 Clin Com See Note Critical Care Time Critical Care Time Critical Care Time: No Discharge Plan Discharge Clinical Impression: Cellulitis, Polysubstance abuse, Hypertension Patient Disposition: Home, Self-Care Instructions: Cellulitis (ED) Additional Instructions: Take your medications as prescribed. If you were prescribed antibiotics today, it is important that you take your medication to their entirety, do not skip any doses, do not finish them early. Follow-up with your primary care provider this week. Check your blood pressure Fridays, rated done unsure this with your primary care provider. Her pressure was elevated. If you experience headache, vision changes, dizziness chest pain, shortness of breath please return. Return to the emergency department with new or worsening symptoms. Such as fevers, chills, chest pain, shortness of breath, nausea, vomiting, dizziness, headache, vision changes, lethargy In case of emergency call 911 Prescriptions: New doxycycline hyclate 100 mg capsule 100 mg PO BID 10 Days Qty: 20 0RF No Action doxycycline hyclate 100 mg tablet 100 mg PO BID 14 Days Qty: 28 0RF Referrals: Physician,None [Primary Care Provider] - 2 days Stand Alone Forms: Substance Abuse Outpt Detox, Work/School Release
[2021-06-24 19:43] LABS: MANUAL DIFF FLAG NO
[2021-06-24 19:44] LABS: Basophils Absolute Auto 0.1 X10*3/uL (0.0-0.2); Basophils Percent Auto 0.5 % (0-2); Eosinophils Absolute Auto 0.1 X10*3/uL (0.0-0.4); Hematocrit 41.9 % (42.0-52.0); Hemoglobin 14.1 g/dl (14.0-18.0); Imm Gran Abs Auto 0.01 X10*3/uL (0.00-0.03); Imm Gran Pct Auto 0.1 % (0.0-0.4); Lymphocytes Absolute Auto 1.9 X10*3/uL (1.2-4.9); Lymphocytes Percent Auto 21.1 % (20-40); Mean Corpuscular HGB Conc 33.7 g/dl (31.0-36.0); Mean Corpuscular Hemoglobin 28.2 pg (27.0-33.0); Mean Corpuscular Volume 83.8 fL (80.0-98.0); Mean Platelet Volume 9.2 fL (9.4-12.4); Monocytes Absolute Auto 0.6 X10*3/uL (0.1-1.2); Monocytes Percent Auto 6.6 % (2-11); Neutrophils Absolute Auto 6.4 x10*3/uL (2.0-8.3); Neutrophils Percent Auto 70.7 % (45-73); Platelet Count 219 X10*3/uL (160-400); Red Cell Distribution Width 12.6 % (11.0-16.0); White Blood Count 9.1 X10*3/uL (4.8-10.8)
[2021-06-24 19:51] LABS: INTERNATIONAL NORM RATIO 1.3 (0.9-1.1); Prothrombin Time 14.3 SEC (9.9-13.0)
[2021-06-24 19:54] LABS: Partial Thromboplastin Time 35.5 SEC (24.1-38.0)
[2021-06-24 19:58] LABS: Alanine Aminotransferase 51 U/L (0-40); Albumin Level 4.5 g/dL (3.5-5.0); Alkaline Phosphatase 122 U/L (39-117); Anion Gap 13 (12-20); Aspartate Amino Transferase 25 U/L (5-37); Bilirubin Direct 0.2 mg/dL (0.0-0.5); Bilirubin Total 0.3 mg/dL (0.0-1.0); Blood Urea Nitrogen 15 mg/dL (9-16); Calcium 10.1 mg/dL (8.4-10.2); Carbon Dioxide 28 mmol/L (22-29); Chloride 102 mmol/L (96-108); Creatinine Clr Calc Pharmacy 122.6; Estimated Glomerular Filt Rate > 60; Glucose Random 93 mg/dL (60-115); Potassium 4.4 mmol/L (3.3-5.1); Sodium 139 mmol/L (135-145); Total Protein 8.2 g/dL (6.5-8.0)
[2021-06-24 20:18] LABS: COVID-19 Test Negative (Negative)
[2021-06-24 20:33] VITALS: O2SAT 100
[2021-06-24 21:39] VITALS: BP 130/111; PULSE 116; RESP 16; O2SAT 97
--- NOTE | 2021-06-24 22:03 | MHC.RECOVSUP ---
? Reason for consult:Recovery Support o ?Current location:ED11 o ? Identified substance use concern: Heroine ? - Support ? ?Intervention: o Community resources provided o Harm reduction discussion ? Plan: o Referral to [facility] ? Additional information:?I was able to connect with patient and review options for detox and community resources. Patient stated he wanted to use one more time before connecting to detox. I referred him to [facility] and spoke about harm reduction strategies.
[2021-06-24] MEDS: LORazepam 1 MG TABLET PO (23:16)
[2021-06-25 01:11] VITALS: BP 126/81; PULSE 108; RESP 17; TEMP 37.2; O2SAT 97
--- NOTE | 2021-06-25 02:06 | PC.NURSE ---
I assumed nursing care of this patient upon his arrival to bed 11 from the waiting room. He presented for evaluation of L hand redness that he attributes to IVDA. He admits to using IV heroin daily. there is mild redness to the top of his L hand surrounding what appears to be a puncture wound, presumably from a needle. He denies fevers/chills. He appears mildly pale and clammy. Throughout his ER visit he has been calm and cooperative. he has ambulated to and from the bathroom independently and with steady gait. There has been no SOB or chest pain, no nausea or vomiting. he has taken PO food and fluids while here in the ED without difficulty. The pt initially stated he would like to go to detox, stating I'm ready to be off the streets. However, at 0130 he informed me that he changed his mind and would like to leave. I sat with him and spoke to him about this and attempted to help him change his mind and to go to deox. I was unsuccessful. I notified DEMETRI Corbin - who was in another room with a patient - and she encouraged me to encourage the pt to remain. So, i attempted this - unsuccessfully. I encouraged the pt to remain for his discharge papers and a script for PO antibiotics, but he insisted that he needed to leave. Emerald MOSQUERA aware of this prior to patients departure, states he can either elope or he can wait for papers as she was tied up in another patients' room I notified the pt of this. he stated that he could not wait as an [facility]BER was outside the ED to pick him up. He did say, however, that he would be back in a couple of hours in order to go to detox. he ambulated out with safe, steady gait.
== END 2021-06-25 02:21 | disposition left against medical advice (07) ==
PROVIDERS: Physician Assistant; Emergency Provider Emergency Medicine
DX: L03.114 Cellulitis of left upper limb (principal); L03.113 Cellulitis of right upper limb; F19.10 Other psychoactive substance abuse, uncomplicated; I10 Essential (primary) hypertension; I45.19 Other right bundle-branch block; R00.0 Tachycardia, unspecified; Z20.822 Contact with and (suspected) exposure to COVID-19
CPT/HCPCS: 36415; 80053; 80076; 82248; 83605; 85025; 85610; 85730; 87040; 87077; 87186; 87205; 87635; 93005; 99284

== ENCOUNTER 2021-07-05 18:07 | Emergency (ER) | payer MEDICAID, SELFPAY ==
[2021-07-05 18:34] VITALS: BP 139/67; PULSE 96; RESP 18; TEMP 36.9; O2SAT 100; BMI 29.5
[2021-07-05 18:56] LABS: COVID-19 Test Negative (Negative)
--- NOTE | 2021-07-06 03:42 | ED.GENADULT ---
HPI - General Adult General Chief complaint: General Medical <Haseeb Ring MD - Last Filed: 07/06/21 07:18> Stated complaint: states told to return to er..mrsa <Haseeb Ring MD - Last Filed: 07/06/21 07:18> Time Seen by Provider: 07/05/21 20:22 <Haseeb Ring MD - Last Filed: 07/06/21 07:18> Source: patient <Haseeb Ring MD - Last Filed: 07/06/21 07:18> Mode of arrival: ambulatory <Haseeb Ring MD - Last Filed: 07/06/21 07:18> Limitations: no limitations <Haseeb Ring MD - Last Filed: 07/06/21 07:18> History of Present Illness HPI narrative: patient with history of IVDA and arm abscess. Had 1 of 4 bottles positive for MRSA likely contaminant. No fevers. Patient here for reevaluation <Haseeb Ring MD - Last Filed: 07/06/21 07:18> Onset (ago): week(s) <Haseeb Ring MD - Last Filed: 07/06/21 07:18> Severity: mild <Haseeb Ring MD - Last Filed: 07/06/21 07:18> Associated symptoms: denies other symptoms <Haseeb Ring MD - Last Filed: 07/06/21 07:18> Related Data Home medications: Previous Rx's Medication Instructions Recorded doxycycline hyclate 100 mg tablet 100 mg PO BID 14 Days #28 tab 06/15/21 doxycycline hyclate 100 mg capsule 100 mg PO BID 10 Days #20 cap 06/24/21 doxycycline hyclate 100 mg capsule 100 mg PO BID 11 Days #22 cap 07/06/21 <Haseeb Ring MD - Last Filed: 07/06/21 07:18> Allergies/adverse reactions: Allergies Allergy/AdvReac Type Severity Reaction Status Date / Time naltrexone [NALTREXONE] Allergy Unknown HIVES Verified 06/24/21 19:07 <Haseeb Ring MD - Last Filed: 07/06/21 07:18> Review of Systems Constitutional: Constitutional: Reports no additional constitutional complaints <Haseeb Ring MD - Last Filed: 07/06/21 07:18> Eyes: Eyes: Reports no additional eye complaints <Haseeb Ring MD - Last Filed: 07/06/21 07:18> ENT: Denies dizziness <Haseeb Ring MD - Last Filed: 07/06/21 07:18> Cardiovascular: Cardiovascular: Reports no additional cardiovascular complaints <Haseeb Ring MD - Last Filed: 07/06/21 07:18> Respiratory: Respiratory: Reports as per HPI <Haseeb Ring MD - Last Filed: 07/06/21 07:18> Gastrointestinal: Gastrointestinal: Reports no additional gastrointestinal complaints <Haseeb Ring MD - Last Filed: 07/06/21 07:18> Musculoskeletal: Musculoskeletal: Reports no additional musculoskeletal complaints <Haseeb Ring MD - Last Filed: 07/06/21 07:18> Integumentary/Breasts: Skin/Breast: Denies rash <Haseeb Ring MD - Last Filed: 07/06/21 07:18> Neurologic: Reports system reviewed and no additional complaints, except as documented, Denies dizziness and Denies Sensory deficit (Neuro) <Haseeb Ring MD - Last Filed: 07/06/21 07:18> Psychiatric: Psychiatric: Denies anxiety <Haseeb Ring MD - Last Filed: 07/06/21 07:18> PMFSH Past Medical History Medical History: Medical History Alcohol abuse Bacteremia Polysubstance abuse Tobacco use disorder <Haseeb Ring MD - Last Filed: 07/06/21 07:18> Surgical History: Surgical History No pertinent past surgical history <Haseeb Ring MD - Last Filed: 07/06/21 07:18> Social History Social History: Social History Household Members: Other Housing: Homeless Do you presently have visiting nurse or other home services: No Alcohol intake: never Patient Tobacco Use Status: Current everyday Tobacco user Tobacco use type: Cigarette Cigarette Packs Per Day: 0.5 Cigarettes Per Day: 10.0 Use of substances other than those prescribed or required for medical reasons: Yes Substance Use Type: Heroin Advance Directives: No Advance Directives Information Provided: No service: No Current occupational status: unemployed <Haseeb Ring MD - Last Filed: 07/06/21 07:18> Physical Exam ED Vital Signs: Vital Signs - 24 hr 07/05/21 18:34 07/06/21 04:00 07/06/21 06:18 Temperature 98.5 F 98 F Pulse Rate 96 97 98 Respiratory Rate 18 15 14 Blood Pressure 139/67 129/80 Pulse Oximetry 100 98 97 07/06/21 07:29 07/06/21 09:08 07/06/21 11:25 Temperature 98.2 F 98.1 F 98.2 F Pulse Rate 88 94 89 Respiratory Rate 18 19 19 Blood Pressure 128/74 116/68 115/59 L Pulse Oximetry 100 97 98 BMI result Body Mass Index 29.5 <Haseeb Ring MD - Last Filed: 07/06/21 07:18> Vital Signs - 24 hr 07/05/21 18:34 07/06/21 04:00 07/06/21 06:18 Temperature 98.5 F 98 F Pulse Rate 96 97 98 Respiratory Rate 18 15 14 Blood Pressure 139/67 129/80 Pulse Oximetry 100 98 97 07/06/21 07:29 07/06/21 09:08 07/06/21 11:25 Temperature 98.2 F 98.1 F 98.2 F Pulse Rate 88 94 89 Respiratory Rate 18 19 19 Blood Pressure 128/74 116/68 115/59 L Pulse Oximetry 100 97 98 BMI result Body Mass Index 29.5 <Polly Lindo DO - Last Filed: 07/06/21 11:48> Const General: healthy appearing <Haseeb Ring MD - Last Filed: 07/06/21 07:18> Nutritional Appearance: average body habitus <Haseeb Ring MD - Last Filed: 07/06/21 07:18> Orientation/consciousness: oriented to person and patient oriented x3 <Haseeb Ring MD - Last Filed: 07/06/21 07:18> Limitations: no limitations <Haseeb Ring MD - Last Filed: 07/06/21 07:18> HENMT Head: Yes normal to inspection <Haseeb Ring MD - Last Filed: 07/06/21 07:18> Ears: external ears normal <Haseeb Ring MD - Last Filed: 07/06/21 07:18> General nose exam: Normal external nose present <Haseeb Ring MD - Last Filed: 07/06/21 07:18> Mouth: Normal oral and palatal mucosa present and oropharynx normal <Haseeb Ring MD - Last Filed: 07/06/21 07:18> Throat: Yes posterior oropharynx normal <Haseeb Ring MD - Last Filed: 07/06/21 07:18> Eyes General: appearance normal, both eyes and all related structures <Haseeb Ring MD - Last Filed: 07/06/21 07:18> Neck Neck: Yes normal visual inspection <Haseeb Ring MD - Last Filed: 07/06/21 07:18> Chest Chest palpation & inspection: normal inspection of the chest <Haseeb Ring MD - Last Filed: 07/06/21 07:18> Resp Auscultation: clear to auscultation bilaterally <Haseeb Ring MD - Last Filed: 07/06/21 07:18> Cardio Jugular venous distension: no JVD <Haseeb Ring MD - Last Filed: 07/06/21 07:18> Rate: regular rate <Haseeb Ring MD - Last Filed: 07/06/21 07:18> Rhythm: regular rhythm <Haseeb Ring MD - Last Filed: 07/06/21 07:18> Heart sounds: S1 normal heart sound present and S2 normal heart sound present <Haseeb Ring MD - Last Filed: 07/06/21 07:18> GI Inspection: Yes normal to inspection <Haseeb Ring MD - Last Filed: 07/06/21 07:18> Palpation (GI): Soft to palpation, nontender and No hepatosplenomegaly present <Haseeb Ring MD - Last Filed: 07/06/21 07:18> Auscultation: normal bowel sounds <Haseeb Ring MD - Last Filed: 07/06/21 07:18> General: Yes no CVA tenderness <Haseeb Ring MD - Last Filed: 07/06/21 07:18> Back/Spine/Pelvis Back: no CVA tenderness <Haseeb Ring MD - Last Filed: 07/06/21 07:18> Skin Other: well healed wounds <Haseeb Ring MD - Last Filed: 07/06/21 07:18> General skin exam: no rashes or lesions noted <Haseeb Ring MD - Last Filed: 07/06/21 07:18> Neuro General: oriented to person and patient oriented x3 <Haseeb Ring MD - Last Filed: 07/06/21 07:18> Cranial nerves: Yes CN's II-XII intact bilaterally <Haseeb Ring MD - Last Filed: 07/06/21 07:18> Motor exam (neuro): 5/5 motor strength present throughout <Haseeb Ring MD - Last Filed: 07/06/21 07:18> Sensory Exam: No Sensory deficit (Neuro) <Haseeb Ring MD - Last Filed: 07/06/21 07:18> Extrem General: Yes normal to inspection <Haseeb Ring MD - Last Filed: 07/06/21 07:18> Psych Appearance: grossly normal <Haseeb Ring MD - Last Filed: 07/06/21 07:18> Course Course Course Narrative: ADDENDUM: plan would be to repeat CBC, recheck blood cultures - patient very concerned although his arms look good, no fevers, not toxic appearing disucssed this was likely contaminant was on doxy x 10 days will extend for 2 week course and add on additional 11 day, patient happy with plan declines SUDE evaluation or detox at this time no WBC count, no fevers will DC with 11 days of doxy for 21 day treatment <Polly Lindo DO - Last Filed: 07/06/21 11:48> Reevaluation(s) Reevaluation #1: patient with 1 out of 4 bottles from 12 days ago. No fevers or other symptoms. Will not culture at this time <Haseeb Ring MD - Last Filed: 07/06/21 07:18> Time: 03:49 <Haseeb Ring MD - Last Filed: 07/06/21 07:18> Reevaluation #2: patient wanting detox evaluation will hold for CARE team <Haseeb Ring MD - Last Filed: 07/06/21 07:18> Time: 07:18 <Haseeb Ring MD - Last Filed: 07/06/21 07:18> Medical Decision Making Lab Data Result diagrams: : 07/06/21 11:09 07/06/21 11:09 <Haseeb Ring MD - Last Filed: 07/06/21 07:18> Labs: Lab Results 07/05/21 07/06/21 07/06/21 Range/Units 18:38 11:09 11:09 WBC 5.0 (4.8-10.8) X10*3/uL RBC 4.73 (4.60-5.80) X10*6/uL Hgb 13.3 L (14.0-18.0) g/dl Hct 39.7 L (42.0-52.0) % MCV 83.9 (80.0-98.0) fL MCH 28.1 (27.0-33.0) pg MCHC 33.5 (31.0-36.0) g/dl RDW 12.7 (11.0-16.0) % Plt Count 161 D (160-400) X10*3/uL MPV 8.9 L (9.4-12.4) fL Immature Gran % (Auto) 0.2 (0.0-0.4) % Neut % (Auto) 42.1 L (45-73) % Lymph % (Auto) 46.6 H (20-40) % Cannon % (Auto) 7.1 (2-11) % Eos % (Auto) 3.4 (0-4) % Baso % (Auto) 0.6 (0-2) % Lymph # (Auto) 2.3 (1.2-4.9) X10*3/uL Cannon # (Auto) 0.4 (0.1-1.2) X10*3/uL Eos # (Auto) 0.2 (0.0-0.4) X10*3/uL Baso # (Auto) 0.0 (0.0-0.2) X10*3/uL Abs Immat Gran (auto) 0.01 (0.00-0.03) X10*3/uL Absolute Neuts (auto) 2.1 (2.0-8.3) x10*3/uL Absolute Nucleated RBC 0.000 (0.0-0.012) X10*3/uL Nucleated RBC % (auto) 0.0 (0.0-0.2) /100WBC Sodium 139 (135-145) mmol/L Potassium 4.0 (3.3-5.1) mmol/L Chloride 102 (96-108) mmol/L Carbon Dioxide 31 H (22-29) mmol/L Anion Gap 10 L (12-20) BUN 18 H (9-16) mg/dL Creatinine 0.95 (0.5-1.4) mg/dL Estim Creat Clear Calc 151.7 Estimated GFR > 60 Random Glucose 102 (60-115) mg/dL Calcium 9.3 D (8.4-10.2) mg/dL COVID-19 (DEREK) Negative (Negative) COVID-19 Clin Com See Note <Haseeb Ring MD - Last Filed: 07/06/21 07:18> Lab Results 07/05/21 07/06/21 07/06/21 Range/Units 18:38 11:09 11:09 WBC 5.0 (4.8-10.8) X10*3/uL RBC 4.73 (4.60-5.80) X10*6/uL Hgb 13.3 L (14.0-18.0) g/dl Hct 39.7 L (42.0-52.0) % MCV 83.9 (80.0-98.0) fL MCH 28.1 (27.0-33.0) pg MCHC 33.5 (31.0-36.0) g/dl RDW 12.7 (11.0-16.0) % Plt Count 161 D (160-400) X10*3/uL MPV 8.9 L (9.4-12.4) fL Immature Gran % (Auto) 0.2 (0.0-0.4) % Neut % (Auto) 42.1 L (45-73) % Lymph % (Auto) 46.6 H (20-40) % Cannon % (Auto) 7.1 (2-11) % Eos % (Auto) 3.4 (0-4) % Baso % (Auto) 0.6 (0-2) % Lymph # (Auto) 2.3 (1.2-4.9) X10*3/uL Cannon # (Auto) 0.4 (0.1-1.2) X10*3/uL Eos # (Auto) 0.2 (0.0-0.4) X10*3/uL Baso # (Auto) 0.0 (0.0-0.2) X10*3/uL Abs Immat Gran (auto) 0.01 (0.00-0.03) X10*3/uL Absolute Neuts (auto) 2.1 (2.0-8.3) x10*3/uL Absolute Nucleated RBC 0.000 (0.0-0.012) X10*3/uL Nucleated RBC % (auto) 0.0 (0.0-0.2) /100WBC Sodium 139 (135-145) mmol/L Potassium 4.0 (3.3-5.1) mmol/L Chloride 102 (96-108) mmol/L Carbon Dioxide 31 H (22-29) mmol/L Anion Gap 10 L (12-20) BUN 18 H (9-16) mg/dL Creatinine 0.95 (0.5-1.4) mg/dL Estim Creat Clear Calc 151.7 Estimated GFR > 60 Random Glucose 102 (60-115) mg/dL Calcium 9.3 D (8.4-10.2) mg/dL COVID-19 (DEREK) Negative (Negative) COVID-19 Clin Com See Note <Polly Lindo DO - Last Filed: 07/06/21 11:48> Discharge Plan Discharge Clinical Impression: Polysubstance abuse, Opioid use disorder, Blood bacterial culture positive <Haseeb Ring MD - Last Filed: 07/06/21 07:18> Patient Disposition: Home, Self-Care <Haseeb Ring MD - Last Filed: 07/06/21 07:18> Instructions: Opioid Use Disorder (ED) <Haseeb Ring MD - Last Filed: 07/06/21 07:18> Additional Instructions: return to ED for any worsening symptoms or concerns finish antibiotics, will add on additional antibiotic to complete 3 weeks of treatment so 11 more days take all antibiotics, if repeat cultures positive we will call you usually result in 72 hours <Haseeb Ring MD - Last Filed: 07/06/21 07:18> Prescriptions: New doxycycline hyclate 100 mg capsule 100 mg PO BID 11 Days Qty: 22 0RF No Action doxycycline hyclate 100 mg tablet 100 mg PO BID 14 Days Qty: 28 0RF doxycycline hyclate 100 mg capsule 100 mg PO BID 10 Days Qty: 20 0RF <Haseeb Ring MD - Last Filed: 07/06/21 07:18>
[2021-07-06 04:00] VITALS: BP 129/80; PULSE 97; RESP 15; TEMP 36.6; O2SAT 98
--- NOTE | 2021-07-06 04:32 | PC.NURSE ---
Patient wants detox. Care consult ordered.
[2021-07-06 06:18] VITALS: PULSE 98; RESP 14; O2SAT 97
[2021-07-06 07:29] VITALS: BP 128/74; PULSE 88; RESP 18; TEMP 36.8; O2SAT 100
[2021-07-06 09:08] VITALS: BP 116/68; PULSE 94; RESP 19; TEMP 36.7; O2SAT 97
--- NOTE | 2021-07-06 10:34 | MHC.RECOVSUP ---
? Reason for consult:recovery Support o Current location:ED 2 o Identified substance use concern:Cocaine, Heroin - Seeking ATS (detox) - Support ? Intervention: o Community resources provided o Harm reduction discussion ? Plan: o Referral to [facility] o Patient to follow up with [facility] after discharge ? Additional information:Patient seeking detox but wants to go home first to get his belongings. Gave patient community resources and referred him to [facility] and the [facility].
[2021-07-06 11:18] LABS: MANUAL DIFF FLAG NO
[2021-07-06 11:20] LABS: Basophils Percent Auto 0.6 % (0-2); Eosinophils Absolute Auto 0.2 X10*3/uL (0.0-0.4); Eosinophils Percent Auto 3.4 % (0-4); Hematocrit 39.7 % (42.0-52.0); Hemoglobin 13.3 g/dl (14.0-18.0); Imm Gran Abs Auto 0.01 X10*3/uL (0.00-0.03); Imm Gran Pct Auto 0.2 % (0.0-0.4); Lymphocytes Absolute Auto 2.3 X10*3/uL (1.2-4.9); Lymphocytes Percent Auto 46.6 % (20-40); Mean Corpuscular HGB Conc 33.5 g/dl (31.0-36.0); Mean Corpuscular Hemoglobin 28.1 pg (27.0-33.0); Mean Corpuscular Volume 83.9 fL (80.0-98.0); Mean Platelet Volume 8.9 fL (9.4-12.4); Monocytes Absolute Auto 0.4 X10*3/uL (0.1-1.2); Monocytes Percent Auto 7.1 % (2-11); Neutrophils Absolute Auto 2.1 x10*3/uL (2.0-8.3); Neutrophils Percent Auto 42.1 % (45-73); Platelet Count 161 X10*3/uL (160-400); Red Blood Count 4.73 X10*6/uL (4.60-5.80); Red Cell Distribution Width 12.7 % (11.0-16.0)
[2021-07-06 11:25] VITALS: BP 115/59; PULSE 89; RESP 19; TEMP 36.8; O2SAT 98
[2021-07-06 11:39] LABS: Anion Gap 10 (12-20); Blood Urea Nitrogen 18 mg/dL (9-16); Calcium 9.3 mg/dL (8.4-10.2); Carbon Dioxide 31 mmol/L (22-29); Chloride 102 mmol/L (96-108); Creatinine Clr Calc Pharmacy 151.7; Estimated Glomerular Filt Rate > 60; Glucose Random 102 mg/dL (60-115); Sodium 139 mmol/L (135-145)
== END 2021-07-06 11:57 | disposition home or self-care (01) ==
PROVIDERS: Emergency Medicine; Emergency Provider Emergency Medicine
DX: F19.10 Other psychoactive substance abuse, uncomplicated (principal); F11.90 Opioid use, unspecified, uncomplicated; L02.413 Cutaneous abscess of right upper limb; R78.81 Bacteremia; F17.200 Nicotine dependence, unspecified, uncomplicated; Z20.822 Contact with and (suspected) exposure to COVID-19
CPT/HCPCS: 36415; 80048; 85025; 87040; 87635; 99283; 99284

== ENCOUNTER 2021-07-08 16:27 | Emergency (ER) | payer MEDICAID, SELFPAY ==
[2021-07-08 17:24] VITALS: BP 152/97; PULSE 127; RESP 18; TEMP 36.7; O2SAT 98; BMI 29.9
--- NOTE | 2021-07-08 19:41 | ED.GENADULT ---
HPI - General Adult General Chief complaint: General Medical Stated complaint: Abnormal labs Time Seen by Provider: 07/08/21 19:41 Source: patient Mode of arrival: ambulatory Limitations: no limitations History of Present Illness HPI narrative: with history of IVDA use heroin and cocaine was seen here on 06/13 for abscess in the right arm admitted 1 of the blood culture grew MRSA discharge patient on doxycycline after IV antibiotic repeat blood cultures were negative patient was seen here on 07/06 for same as someone called him for positive blood culture repeat blood culture done on 07/06 did not grow anything. Patient now comes here as he wants to go to detox claim that he had low-grade fever yesterday very anxious afebrile on arrival Related Data Previous Rx's Medication Instructions Recorded doxycycline hyclate 100 mg tablet 100 mg PO BID 14 Days #28 tab 06/15/21 doxycycline hyclate 100 mg capsule 100 mg PO BID 10 Days #20 cap 06/24/21 doxycycline hyclate 100 mg capsule 100 mg PO BID 11 Days #22 cap 07/06/21 Allergies Allergy/AdvReac Type Severity Reaction Status Date / Time naltrexone [NALTREXONE] Allergy Unknown HIVES Verified 07/08/21 17:23 Review of Systems Review of Systems: Yes all other systems are reviewed and are negative PMFSH Past Medical History Medical History Alcohol abuse Bacteremia Polysubstance abuse Tobacco use disorder Surgical History No pertinent past surgical history Social History Social History Household Members: Other Housing: Homeless Do you presently have visiting nurse or other home services: No Alcohol intake: never Patient Tobacco Use Status: Current everyday Tobacco user Tobacco use type: Cigarette Cigarette Packs Per Day: 0.5 Cigarettes Per Day: 10.0 Substance Use Type: Heroin Advance Directives: No Advance Directives Information Provided: No service: No Current occupational status: unemployed Physical Exam ED Vital Signs: Vital Signs - 24 hr 07/08/21 17:24 Temperature 98.0 F Pulse Rate 127 H Respiratory Rate 18 Blood Pressure 152/97 H Pulse Oximetry 98 BMI result Body Mass Index 29.9 Appearance: Alert. Oriented X3. No acute distress. very anxious Eyes: PERRLA, No Nystagmus ENT: Pharynx normal. Oral Mucosa moist Neck: Normal inspection. Neck supple. CVS: Normal heart rate and rhythm. Pulses normal. Respiratory: No respiratory distress. Equal air entry bilateral, no wheezing/rales/rhonchi Abdomen: Soft and nontender. Bowel sounds are present, no mass palpable, no CVA tenderness Skin: Skin warm and dry. Normal skin color. Normal skin turgor. Extremities: No lower extremity edema. No calf tenderness IVDA track winkler both upper extremities no signs of deeper infection or abscess Neuro: Oriented X 3. No motor deficit. Medical Decision Making MDM Narrative Medical decision making narrative: patient with polysubstance abuse refused to stay in the pot section for detox discharge patient advised to follow-up with detox as outpatient Lab Data Lab results reviewed: Yes I reviewed the patient's lab results. Result diagrams: 07/08/21 20:00 07/08/21 20:00 Labs: Lab Results 07/08/21 07/08/21 07/08/21 Range/Units 20:00 20:00 20:00 WBC 7.3 (4.8-10.8) X10*3/uL RBC 5.03 (4.60-5.80) X10*6/uL Hgb 14.2 (14.0-18.0) g/dl Hct 41.5 L (42.0-52.0) % MCV 82.5 (80.0-98.0) fL MCH 28.2 (27.0-33.0) pg MCHC 34.2 (31.0-36.0) g/dl RDW 12.6 (11.0-16.0) % Plt Count 193 (160-400) X10*3/uL MPV 9.1 L (9.4-12.4) fL Immature Gran % (Auto) 0.3 (0.0-0.4) % Neut % (Auto) 55.4 (45-73) % Lymph % (Auto) 38.3 (20-40) % Jackson % (Auto) 4.8 (2-11) % Eos % (Auto) 0.8 (0-4) % Baso % (Auto) 0.4 (0-2) % Lymph # (Auto) 2.8 (1.2-4.9) X10*3/uL Jackson # (Auto) 0.4 (0.1-1.2) X10*3/uL Eos # (Auto) 0.1 (0.0-0.4) X10*3/uL Baso # (Auto) 0.0 (0.0-0.2) X10*3/uL Abs Immat Gran (auto) 0.02 (0.00-0.03) X10*3/uL Absolute Neuts (auto) 4.0 (2.0-8.3) x10*3/uL Absolute Nucleated RBC 0.000 (0.0-0.012) X10*3/uL Nucleated RBC % (auto) 0.0 (0.0-0.2) /100WBC Sodium 137 (135-145) mmol/L Potassium 4.5 (3.3-5.1) mmol/L Chloride 102 (96-108) mmol/L Carbon Dioxide 25 (22-29) mmol/L Anion Gap 15 (12-20) BUN 21 H (9-16) mg/dL Creatinine 1.06 (0.5-1.4) mg/dL Estim Creat Clear Calc 136.7 Estimated GFR > 60 Random Glucose 143 H D (60-115) mg/dL Lactic Acid (0.5-2.0) mmol/L Calcium 9.8 (8.4-10.2) mg/dL COVID-19 (DEREK) Negative (Negative) COVID-19 Clin Com See Note Influenza Type A (DANGELO) (Negative) Influenza Type B (DANGELO) (Negative) Influenza A & B Note 07/08/21 07/08/21 Range/Units 20:00 20:00 WBC (4.8-10.8) X10*3/uL RBC (4.60-5.80) X10*6/uL Hgb (14.0-18.0) g/dl Hct (42.0-52.0) % MCV (80.0-98.0) fL MCH (27.0-33.0) pg MCHC (31.0-36.0) g/dl RDW (11.0-16.0) % Plt Count (160-400) X10*3/uL MPV (9.4-12.4) fL Immature Gran % (Auto) (0.0-0.4) % Neut % (Auto) (45-73) % Lymph % (Auto) (20-40) % Jackson % (Auto) (2-11) % Eos % (Auto) (0-4) % Baso % (Auto) (0-2) % Lymph # (Auto) (1.2-4.9) X10*3/uL Jackson # (Auto) (0.1-1.2) X10*3/uL Eos # (Auto) (0.0-0.4) X10*3/uL Baso # (Auto) (0.0-0.2) X10*3/uL Abs Immat Gran (auto) (0.00-0.03) X10*3/uL Absolute Neuts (auto) (2.0-8.3) x10*3/uL Absolute Nucleated RBC (0.0-0.012) X10*3/uL Nucleated RBC % (auto) (0.0-0.2) /100WBC Sodium (135-145) mmol/L Potassium (3.3-5.1) mmol/L Chloride (96-108) mmol/L Carbon Dioxide (22-29) mmol/L Anion Gap (12-20) BUN (9-16) mg/dL Creatinine (0.5-1.4) mg/dL Estim Creat Clear Calc Estimated GFR Random Glucose (60-115) mg/dL Lactic Acid 1.4 (0.5-2.0) mmol/L Calcium (8.4-10.2) mg/dL COVID-19 (DEREK) (Negative) COVID-19 Clin Com Influenza Type A (DANGELO) Negative (Negative) Influenza Type B (DANGELO) Negative (Negative) Influenza A & B Note See Note Discharge Plan Discharge Clinical Impression: Polysubstance abuse Patient Disposition: Home, Self-Care Instructions: Polysubstance Abuse (ED) Additional Instructions: follow up with detox Prescriptions: No Action doxycycline hyclate 100 mg tablet 100 mg PO BID 14 Days Qty: 28 0RF doxycycline hyclate 100 mg capsule 100 mg PO BID 10 Days Qty: 20 0RF doxycycline hyclate 100 mg capsule 100 mg PO BID 11 Days Qty: 22 0RF
--- NOTE | 2021-07-08 19:59 | MHC.RECOVSUP ---
? Reason for consult:Recovery Support o ? ? ?Current location: ED8? o ? ? ?Identified substance use concern: Heroine - Seeking ATS (detox) - Support ? ?Intervention: o Community resources provided o Harm reduction discussion ? Plan: o Referral to [facility] ? Additional information:?I was able to connect with patient, he is a 25 year old single male who struggles with SARAH BETH to heroin and is experiencing homelessness. Patient disclosed that he used several bags of heroine before coming in to the ED and is seeking detox. I was able to connect with Tashi at [facility] and Tashi informed me that a bed would be available tomorrow and took down his name. I had a consultation with Dr. Mc including the Care Team and it was decided to transition the patient to the pod. I connected with the patient and made the suggestion to stay over night so he can transfer to detox tomorrow, patient agreed. Upon preparing patient for transition, I was able to review the phone policy with the patient and he did not want to stay due to turning in his cell phone once in the pod. I reviewed harm reduction strategies through mentoring then informed the team of patients concerns. Patient will be discharged, I provided him with community resources and a referral for [facility].
[2021-07-08 20:15] LABS: MANUAL DIFF FLAG NO
[2021-07-08 20:21] LABS: Basophils Percent Auto 0.4 % (0-2); Eosinophils Absolute Auto 0.1 X10*3/uL (0.0-0.4); Eosinophils Percent Auto 0.8 % (0-4); Hematocrit 41.5 % (42.0-52.0); Hemoglobin 14.2 g/dl (14.0-18.0); Imm Gran Abs Auto 0.02 X10*3/uL (0.00-0.03); Imm Gran Pct Auto 0.3 % (0.0-0.4); Lymphocytes Absolute Auto 2.8 X10*3/uL (1.2-4.9); Lymphocytes Percent Auto 38.3 % (20-40); Mean Corpuscular HGB Conc 34.2 g/dl (31.0-36.0); Mean Corpuscular Hemoglobin 28.2 pg (27.0-33.0); Mean Corpuscular Volume 82.5 fL (80.0-98.0); Mean Platelet Volume 9.1 fL (9.4-12.4); Monocytes Absolute Auto 0.4 X10*3/uL (0.1-1.2); Monocytes Percent Auto 4.8 % (2-11); Neutrophils Percent Auto 55.4 % (45-73); Platelet Count 193 X10*3/uL (160-400); Red Blood Count 5.03 X10*6/uL (4.60-5.80); Red Cell Distribution Width 12.6 % (11.0-16.0); White Blood Count 7.3 X10*3/uL (4.8-10.8)
[2021-07-08 20:30] LABS: Anion Gap 15 (12-20); Blood Urea Nitrogen 21 mg/dL (9-16); Calcium 9.8 mg/dL (8.4-10.2); Carbon Dioxide 25 mmol/L (22-29); Chloride 102 mmol/L (96-108); Creatinine Clr Calc Pharmacy 136.7; Estimated Glomerular Filt Rate > 60; Glucose Random 143 mg/dL (60-115); Potassium 4.5 mmol/L (3.3-5.1); Sodium 137 mmol/L (135-145)
[2021-07-08 20:31] LABS: Lactic Acid 1.4 mmol/L (0.5-2.0)
[2021-07-08 20:38] LABS: Influenza A Negative (Negative); Influenza B2 Negative (Negative)
[2021-07-08 20:39] LABS: COVID-19 Test Negative (Negative); IDNOW Serial# 16C4AD1C
== END 2021-07-08 21:10 | disposition home or self-care (01) ==
PROVIDERS: Emergency Provider Internal Medicine
DX: F19.10 Other psychoactive substance abuse, uncomplicated (principal); F10.10 Alcohol abuse, uncomplicated; Y90.9 Presence of alcohol in blood, level not specified; F41.9 Anxiety disorder, unspecified; F17.200 Nicotine dependence, unspecified, uncomplicated; Z20.822 Contact with and (suspected) exposure to COVID-19
CPT/HCPCS: 36415; 80048; 83605; 85025; 87040; 87502; 87635; 99283

== ENCOUNTER 2021-08-31 20:56 | Emergency (ER) | payer MEDICAID, SELFPAY ==
[2021-08-31 22:31] VITALS: BP 132/86; PULSE 87; RESP 15; TEMP 36.7; O2SAT 96; BMI 65.0
[2021-09-01 02:25] VITALS: PULSE 82; RESP 16; O2SAT 98
--- NOTE | 2021-09-01 02:40 | ED.SKABFB ---
HPI - Skin/Abscess/Foreign Bdy General Chief complaint: Skin/Abscess/Foreign Body Stated complaint: Arm infection Time Seen by Provider: 08/31/21 23:48 Source: patient and old records reviewed Mode of arrival: ambulatory Limitations: no limitations History of Present Illness complaint: lesion Onset (ago): day(s) (2) Tetanus up to date: yes Location: LUE Severity: mild Quality: dull Relieving factors: none Exacerbating factors: none Context: IVDA Associated symptoms: denies other symptoms Treatments prior to arrival: none Related Data Previous Rx's Medication Instructions Recorded doxycycline hyclate 100 mg tablet 100 mg PO BID 14 Days #28 tab 06/15/21 doxycycline hyclate 100 mg capsule 100 mg PO BID 10 Days #20 cap 06/24/21 doxycycline hyclate 100 mg capsule 100 mg PO BID 11 Days #22 cap 07/06/21 cephalexin 500 mg capsule 500 mg PO TID 7 Days #21 cap 09/01/21 doxycycline hyclate 100 mg capsule 100 mg PO BID 7 Days #14 cap 09/01/21 Allergies Allergy/AdvReac Type Severity Reaction Status Date / Time naltrexone [NALTREXONE] Allergy Unknown HIVES Verified 07/08/21 17:23 Review of Systems Review of Systems: Constitutional : No Fever, No Chills ENT/Mouth : No sore throat, No Rhinorrhea Eyes: No Eye Pain, No Swelling, No Redness Cardiovascular : No Chest Pain, No SOB Respiratory : No Cough, No Sputum Gastrointestinal : No Nausea, No Vomiting, No Diarrhea, No abdominal Pain Genitourinary : No Dysuria, No Hematuria Musculoskeletal : No joint pain, No Myalgias, No Joint Swelling Skin : No Skin Lesions, positive skin rash Neuro : No Weakness, No Numbness, No Headache Psych : No Anxiety, No Depression Heme/Lymph: No Bruising, No Bleeding,No Lymphadenopathy Endocrine : No Polyuria, No Polydipsia All other systems reviewed and are negative PMFSH Past Medical History Medical History Alcohol abuse Bacteremia Polysubstance abuse Tobacco use disorder Surgical History No pertinent past surgical history Social History Social History Household Members: Other Housing: Homeless Do you presently have visiting nurse or other home services: No Alcohol intake: never Patient Tobacco Use Status: Current everyday Tobacco user Tobacco use type: Cigarette Cigarette Packs Per Day: 0.5 Cigarettes Per Day: 10.0 Substance Use Type: Heroin Advance Directives: No service: No Current occupational status: unemployed Physical Exam Vital Signs: Vital Signs: Last Vital Signs Temp 98.1 F 08/31/21 22:31 Pulse 82 09/01/21 02:25 Resp 16 09/01/21 02:25 BP 132/86 08/31/21 22:31 Pulse Ox 98 09/01/21 02:25 BMI result Body Mass Index 65.0 Appearance: Alert. Oriented X3. No acute distress. Eyes: Pupils equal, round and reactive to light. ENT: Pharynx normal. Neck: Normal inspection. Neck supple. CVS: Normal heart rate and rhythm. Pulses normal. Respiratory: No respiratory distress. Breath sounds normal. Abdomen: Soft and nontender. Skin: L AC injection sites noted no extending erythema minimal crusting noted to L AC with thinnish scant yellow clear fluid noted but unable to express any from sites, no fluctuance, no abscess felt - distal NV intact Extremities: No lower extremity edema. Neuro: Oriented X 3. No motor deficit. No sensory deficit. MDM - Skin/Abscess/Foreign Bdy MDM Narrative Medical decision making narrative: 26 yo male with hx of IVDA recurrent abscess just had I/D of R biceps due to repeated IVDA he is on and off cephalexin and doxy he comes in noting crusting of L AC but I do not appreciate clinical abscess or overlying cellulitis there is minimial redness and very minimal crusting of the site. No abscess on US will restart on cephalexin and doxy. Procedures Procedure Narrative Procedure Narrative: bedside US soft tissue LUE - no abscess seen thickening and cobblestoning of AC noted but no deep abscess Discharge Plan Discharge Clinical Impression: Cellulitis Qualifiers: Site of cellulitis: extremity Site of cellulitis of extremity: upper extremity Laterality: left Qualified Code(s): L03.114 - Cellulitis of left upper limb Patient Disposition: Home, Self-Care Instructions: Cellulitis (ED) Additional Instructions: return to ED for any worsening symptoms or concerns monitor for increased redness, drainage, fevers Prescriptions: New doxycycline hyclate 100 mg capsule 100 mg PO BID 7 Days Qty: 14 0RF cephalexin 500 mg capsule 500 mg PO TID 7 Days Qty: 21 0RF No Action doxycycline hyclate 100 mg tablet 100 mg PO BID 14 Days Qty: 28 0RF doxycycline hyclate 100 mg capsule 100 mg PO BID 10 Days Qty: 20 0RF doxycycline hyclate 100 mg capsule 100 mg PO BID 11 Days Qty: 22 0RF Interventions: LWBS Worksheet Last Done: 09/01/21 01:16
[2021-09-01] MEDS: cephALEXin 500 MG CAPSULE PO (03:12)
== END 2021-09-01 03:14 | disposition home or self-care (01) ==
PROVIDERS: Emergency Provider Emergency Medicine
DX: L02.414 Cutaneous abscess of left upper limb (principal); F11.10 Opioid abuse, uncomplicated; F17.210 Nicotine dependence, cigarettes, uncomplicated; Z71.6 Tobacco abuse counseling; Z79.899 Other long term (current) drug therapy
CPT/HCPCS: 99283